=== PATIENT | female | born 1980 | race Caucasian/White ===

== ENCOUNTER 2016-07-04 12:59 | Emergency (ER) | payer MEDICARE, MEDICAID ==
[2016-07-04] MEDS ORDERED: PROMETHAZINE HCL 25 MG/ML AMPUL IM ONE (13:42)
[2016-07-04] MEDS ORDERED: PROMETHAZINE HCL 25 MG/ML AMPUL ONE (13:44)
--- NOTE | 2016-07-04 13:48 | ERNOTE ---
Abdominal HPI - Narrative Date of Service: 07/04/16 - General Chief Complaint: Abdominal Pain Time Seen by Provider: 07/04/16 13:36 Source: patient, family, RN notes reviewed Exam Limitations: no limitations - Immun/Allergies/Home Medications Immunizatons: IMMUNIZATION HX Immunizations Up to Date Yes History of Influenza Vaccine No Hx Pneumococcal Vaccination No Allergies/Adverse Reactions: Allergies glatiramer acetate [From Copaxone] Allergy (Verified 07/04/16 13:09) latex Allergy (Verified 07/04/16 13:09) hives bupropion HCl [From Wellbutrin] Adverse Reaction (Mild, Verified 07/04/16 13:09) tremors Home Medications: HOME MEDICATIONS ARIPiprazole [Abilify] 5 mg PO DAILY 05/12/16 [Last Taken Unknown] Cholecalciferol (Vitamin D3) [Vitamin D3] 2,000 unit PO DAILY 05/12/16 [Last Taken Unknown] Dimethyl Fumarate [Tecfidera] 240 mg PO BID 05/12/16 [Last Taken Unknown] L.acidoph & Paracasei,B.lactis [Probiotic] 1 each PO DAILY 05/12/16 [Last Taken Unknown] Multivitamin [One Daily Essential] 1 each PO DAILY 05/12/16 [Last Taken Unknown] Polyethylene Glycol 3350 [Miralax] 17 gm PO BID 05/12/16 [Last Taken Unknown] Propranolol HCl [Inderal] 10 mg PO QID 05/12/16 [Last Taken Unknown] Pyridoxine HCl [Vitamin B-6] 100 mg PO DAILY 05/12/16 [Last Taken Unknown] Sennosides/Docusate Sodium [Senna-Docusate Sodium Tablet] 1 each PO TID [Last Taken Unknown] Venlafaxine HCl [Effexor Xr] 150 mg PO DAILY 05/12/16 [Last Taken Unknown] Vitamin B Complex 1 each PO DAILY 05/12/16 [Last Taken Unknown] Armodafinil [Nuvigil] 200 mg PO BID 05/20/16 [Last Taken Unknown] Vitamin B Comp W-C [Vitabee W/C] 1 tab PO DAILY tablet 05/23/16 [Last Taken Unknown] Ondansetron [Zofran Odt] 8 mg PO Q8H PRN #12 tab 07/04/16 [Last Taken Unknown] - History of Present Illness Narrative: 35 y/o female to ED in wheelchair with significant other for abdominal pain. The patient has MS and reports that she cannot normally feel abdominal pain, but has pain today. She has also had some vomiting and diarrhea this morning. She denies any sick contacts. Date (Duration): 07/03/16 Review of Systems - Review of Systems Constitutional: Present: malaise. Absent: fever, chills EYE: Present: no symptoms reported ENT: Present: no symptoms reported Respiratory: Absent: shortness of breath, cough Cardiology: Absent: chest pain, syncope Gastrointestinal/Abdominal: Present: nausea, vomiting, diarrhea, abdominal pain , eating less, drinking less Genitourinary: Absent: frequency, dysuria, hematuria, decreased urinary output Musculoskeletal: Present: no symptoms reported Skin: Absent: rash, lesions Neurological: Absent: headache, dizziness/light-headedness Endocrine: Present: no symptoms reported Hematologic/Lymphatic: Present: no symptoms reported Psych: Present: anxiety - Patient's Past Medical History Patient History - Medical: Anxiety, Depression, UTI'S Patient History - Cardiac/Respiratory: Asthma Patient History - Cancer: No Hx of Cancer Patient History - Surgical Procedures: Appendectomy - Family History Mother Family History - Medical: Rheumatoid Arthritis Family History - Cardiac/Respiratory: CVA/Stroke, Hypertension Father Family History - Cardiac/Respiratory: Hypertension - Social History Living Situations: home Smoking Status: Current every day smoker Have you smoked in the past 12 months: Yes Do you dip or chew tobacco: No Alcohol Use: none Drug Use: none Physical Exam - Physical Exam General Appearance: Present: wd/wn, alert, no apparent distress, anxious Eye Exam: Normal inspection: bilateral Neck: Present: normal inspection, nontender Respiratory: Present: no respiratory distress, normal breath sounds, no accessory muscle use, lungs clear Cardiovascular/Chest: Present: regular rate, rhythm, no murmur, normal peripheral pulses Gastrointestinal/Abdominal: Present: normal bowel sounds, nondistended, soft, no organomegaly, tenderness - mild on left. Absent: rebound, mass, hernia Extremity Exam: Present: normal inspection, no edema Neurological Exam: Present: alert, oriented, normal mood/affect Skin Exam: Present: normal color, warm/dry ED Progress - Results and Orders Patient's Lab Results:: I have reviewed the patient's lab results. - Vital Signs Patient's Vital Signs:: I have reviewed the patient's vital signs. Vital Signs: Vital Signs 07/04/16 07/04/16 13:06 13:27 Temperature 37 C Pulse Rate 84 81 Respiratory 14 Rate Blood Pressure 116/68 112/66 O2 Sat by Pulse 100 93 Oximetry - X-Ray X-Ray #1 X-Ray: abdomen Interpretation: Reviewed by me X-ray Comments: FINDINGS: Abdomen Flat W/ Upright *: No subdiaphragmatic free air. No abnormal dilation of large or small bowel. Patient has multiple left-sided renal calcifications, largest measuring 6 mm at the level of the interpolar region of the left renal shadow. Multiple small rounded calcifications in the pelvis most likely phleboliths. Osseous structures are intact. Degenerative changes of the mid to lower lumbar spine noted. IMPRESSION: 1. Nonobstructive bowel gas pattern. 2. Multiple left-sided renal calcifications as above. 3. Additional comments as above. Electronically signed by Lali Saavedra M.D.. - Progress/Reassessment Chief Complaint: Abdominal Pain Progress:: Improved Progress Note-Subjective: IM phenergan given for nausea, patient verbalizes feeling a lot better. Discussed symptomatic home treatment and indications for needing f/u. Departure - Departure Clinical Impression: Viral gastroenteritis Disposition: Home self-care Condition: Good Instructions: Viral Gastroenteritis, Adult, [id number] Referrals: Maverick Peoples DO [Primary Care Provider] - Prescriptions: Ondansetron [Zofran Odt] 8 mg PO Q8H PRN #12 tab PRN Reason: Nausea
[2016-07-04 13:49] LABS: Hematocrit 41.7 % (37.0-47.0); Hemoglobin 13.9 gm/dL (12.5-16.0); Mean Cell Volume 94.1 fl (78-100); Mean Corpuscular Hemoglobin 31.4 pg (27-31); Mean Corpuscular Hgb Conc 33.3 g/dl (32-36); Neutrophil # 5.6 K/mm3 (1.3-6.0); Neutrophil % 65.9 % (42-75.0); Platelet Count 314 K/mm3 (150-450); Red Blood Count 4.43 M/mm3 (4.2-5.4); White Blood Count 8.4 K/mm3 (4.0-10.5)
[2016-07-04 14:05] LABS: Albumin * 3.8 gm/dl (3.4-5.0); Anion Gap 12.1 mmol/L (6.8-13.8); BUN/Creatinine Ratio 13.5 (9.0-21.6); Bilirubin, Total 0.3 mg/dL (0.0-1.1); Ca. Corrected For Albumin 9.6 mg/dL (8.4-10.2); Calcium * 9.8 mg/dL (7.9-10.9); Carbon Dioxide 26.8 mmol/L (24-32.6); Potassium 3.9 mmol/L (3.4-4.6); Total Protein 7.3 gm/dL (6.2-8.2)
[2016-07-04 15:06] VITALS: BP 121/78
== END 2016-07-04 14:56 | disposition home or self-care (01) ==
LOC: ER 12:59
DX: F17.210 Nicotine dependence, cigarettes, uncomplicated (principal); A08.4 Viral intestinal infection, unspecified; Z87.440 Personal history of urinary (tract) infections; F41.9 Anxiety disorder, unspecified; F32.9 Major depressive disorder, single episode, unspecified

== ENCOUNTER 2016-07-17 01:33 | Emergency (ER) | payer MEDICARE, MEDICAID ==
[2016-07-17] MEDS ORDERED: ACETAMINOPHEN 160 MG/5 ML BTL PO ONE (01:52)
[2016-07-17 01:54] LABS: Hematocrit 40.2 % (37.0-47.0); Hemoglobin 13.7 gm/dL (12.5-16.0); Mean Cell Volume 93.5 fl (78-100); Mean Corpuscular Hemoglobin 31.9 pg (27-31); Mean Corpuscular Hgb Conc 34.1 g/dl (32-36); Neutrophil % 74.7 % (42-75.0); Platelet Count 219 K/mm3 (150-450); Red Cell Distribution Width 13.2 % (11.5-14.0); White Blood Count 6.6 K/mm3 (4.0-10.5)
[2016-07-17 02:01] LABS: Urine Bilirubin Negative (NEGATIVE); Urine Blood Negative /ul (NEGATIVE); Urine Ketone Negative (NEGATIVE); Urine Protein Negative (NEGATIVE); Urine Urobilinogen Normal (NORMAL)
[2016-07-17] MEDS ORDERED: METHYLPREDNISOLONE SOD SUCC/PF 40 MG/ML VIAL IV ONE (02:05)
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
[2016-07-17 02:10] LABS: Albumin * 3.7 gm/dl (3.4-5.0); Anion Gap 13.5 mmol/L (6.8-13.8); BUN/Creatinine Ratio 4.8 (9.0-21.6); Bilirubin, Total 0.3 mg/dL (0.0-1.1); Ca. Corrected For Albumin 9.5 mg/dL (8.4-10.2); Calcium * 9.6 mg/dL (7.9-10.9); Carbon Dioxide 25.1 mmol/L (24-32.6); Potassium 3.6 mmol/L (3.4-4.6); Total Protein 7.4 gm/dL (6.2-8.2)
[2016-07-17 02:13] LABS: Urine Appearance Clear; Urine Bacteria 4+; Urine Color Pale Yellow; Urine Nitrite Positive (NEGATIVE); Urine RBC 0-5 /hpf (0-5); Urine Squamous Epithelial Cell Many - 3+ /hpf; Urine WBC 0-5 /hpf (0-5)
[2016-07-17] MEDS ORDERED: METHYLPREDNISOLONE SOD SUCC 500 MG in NORMAL SALINE 50 ML IV ONE (03:00)
[2016-07-17] MEDS ORDERED: LEVOFLOXACIN/D5W 500 MG/100 ML BAG IV SCH (03:15)
[2016-07-17] MEDS ORDERED: LEVOFLOXACIN/D5W 750 MG/150 ML BAG IV SCH (03:15)
[2016-07-17 03:24] VITALS: BP 113/68
== END 2016-07-17 03:20 | disposition short-term general hospital (02) ==
LOC: ER 01:33
DX: G35 Multiple sclerosis (principal); Z87.440 Personal history of urinary (tract) infections; F17.210 Nicotine dependence, cigarettes, uncomplicated; R53.83 Other fatigue

== ENCOUNTER 2016-07-22 17:51 | Emergency (ER) | payer MEDICARE, MEDICAID ==
[2016-07-22] MEDS ORDERED: ALBUTEROL SULFATE/IPRATROPIUM 3 ML NEBU IH ONE (19:06)
--- OUTSIDE RECORDS SUMMARY | 2016-07-22 19:08 | XMS REPORT | Summary of Care ---
:1980 Author Organization [facility] Problem List Condition Effective Dates Status Health Status Informant Anxiety(Confirmed) Active patient Asthma(Confirmed) Active patient Depression(Confirmed) Active patient Multiple sclerosis(Confirmed) Active patient Encounter 10/20/14 - 10/22/14 [place] [address]- [facility] Discharge Disposition: Discharged to Home or Self Care Attending Physician: Baljinder Dejesus MD Admitting Physician: Kat MASCORRO, Krystal Cam Vital Signs Most recent to oldest (Reference Range): 1 Respiratory Rate (12-18 Br PM) 16 Br PM (10/22/14 7:22 AM) Most recent to oldest (Reference Range): 1 Pulse Rate (60-100 BPM) 76 BPM (10/22/14 7:22 AM) Most recent to oldest (Reference Range): 1 Blood Pressure (90-140/65-90 mmHg) 95/46mmHg (10/22/14 7:22 AM) Most recent to oldest (Reference Range): 1 Temperature Celsius (36.1-38 Degrees C) 36.6 Degrees C (10/22/14 7:22 AM) Most recent to oldest (Reference Range): 1 Height 160.02 cm (10/20/14 11:56 PM) Most recent to oldest (Reference Range): 1 Weight 89.9 kg (10/20/14 11:56 PM) Most recent to oldest (Reference Range): 1 Body Mass Index 35 kg/m2 (10/20/14 11:56 PM) Allergies, Adverse Reactions, Alerts Substance Reaction Severity Status Copaxone rash Active gabapentin Active Grass Active Latex Active Trees Active Medications bifidobacterium-lactobacillus (Nature's Bounty Probiotic oral tablet) 1 Tab, By Mouth, once a day, Refills: 0 cholecalciferol (Vitamin D3 2000 intl units oral capsule) 1 Cap, By Mouth, once a day, Refills: 0 desvenlafaxine (Pristiq) 100 mg, By Mouth, Twice a day, Refills: 0 dimethyl fumarate (Tecfidera) 240 mg, By Mouth, Twice a day, Refills: 0 LORazepam (LORazepam 1 mg oral tablet) 1 Tab, By Mouth, every 4 hours, As Needed, See Comments, Refills: 0 modafinil (modafinil 200 mg oral tablet) , 2 tabs, By Mouth, every morning, Refills: 0 multivitamin (B-50 Complex Vitamin B Complex oral tablet) 1 Tab, By Mouth, once a day, Refills: 0 multivitamin (Multivitamin Tab) 1 Tab, By Mouth, once a day, Refills: 0 omega-3 polyunsaturated fatty acids (Nature's Bounty Red Krill Oil 500 mg oral capsule) 2 Cap, By Mouth, once a day, Refills: 0 polyethylene glycol 3350 (MiraLax) 17 Gm, By Mouth, Twice a day, Refills: 0 pyridoxine (Vitamin B6 100 mg oral tablet) 1 Tab, By Mouth, once a day, Refills: 0 tolterodine (Detrol LA) 4 mg, By Mouth, once a day, Refills: 0 ubiquinone (elppa CoQ10) 400 mg, By Mouth, once a day, Refills: 0 ziprasidone (ziprasidone 20 mg oral capsule) 1 Cap, By Mouth, Twice a day, Refills: 0 Results Urine Chem/Hemo Most recent to oldest (Reference Range): 1 HCG Qualitative Urine (Negative) Negative (10/21/14 1:45 PM) Immunizations No data available for this section Procedures Procedure Date Related Diagnosis Body Site Appendectomy Social History No data available for this section Assessment and Plan No data available for this section
--- OUTSIDE RECORDS SUMMARY | 2016-07-22 19:08 | XMS REPORT | Continuity of Care Document ---
:1980 Author Organization [facility] [place] [address] Care Team Providers Name Role Phone Blanche Elliott Primary Care Provider [phone] Source Comments This disclosure is being made pursuant to the [employer] program and maynot contain all information available regarding this patient.[facility] Active Allergies and Adverse Reactions Allergen Noted Date Severity Reactions Comments Chocolate 02/14/2012 Medium Nausea And Vomiting Reviewed by Brittany Sotelo 02/14/2012 Glatiramer Acetate 11/16/2011 Low Dermatitis Latex 11/16/2011 Low Dermatitis Current Medications Be aware that medications may not be up to date as of this document. Alwaysverify current medications with the patient. Prescription Sig. Disp. Refills Start Date End Date Status Desvenlafaxine Take 100 mg by Active Succinate (PRISTIQ PO) mouth daily. Indications: Depression Darifenacin Take 15 mg by Active Hydrobromide (ENABLEX mouth daily. PO) clindamycin (CLEOCIN) Take 300 mg by Active 300 MG capsule mouth 2 (two) times daily. nitrofurantoin Take 100 mg by Active (MACRODANTIN) 100 MG mouth daily. capsule doxycycline Take 100 mg by Active (VIBRAMYCIN) 100 MG mouth 2 (two) capsule times daily. clindamycin (CLEOCIN Apply 1 % Active T) 1 % lotion topically daily. triamcinolone Apply 0.1 % Active (KENALOG) 0.1 % cream topically 3 (three) times daily. vitamin D, Take 3,000 Units Active cholecalciferol, by mouth daily. (VITAMIN D3) 1000 UNITS tablet ARIPiprazole (ABILIFY) Take 1 tablet by 30 tablet 0 02/16/2012 Active 2 MG tablet mouth nightly. modafinil (PROVIGIL) Take 1 tablet by 1 tablet 0 02/16/2012 Active 200 MG tablet mouth daily. Active Problems Not on file Social History Tobacco Use Types Packs/Day Years Used Date Current Every Day Smoker 0.25 Tobacco Cessation:Ready to Quit: No; Counseling Given: Yes Comments: Alcohol Use Drinks/Week oz/Week Comments No Last Filed Vital Signs Vital Sign Reading Time Taken Blood Pressure 104/73 02/16/2012 8:01 AM CDT Pulse 98 02/16/2012 8:01 AM CDT Temperature 36.3 C (97.3 F) 02/16/2012 8:00 AM CDT Respiratory Rate 12 02/16/2012 8:00 AM CDT Height 1.645 m (5' 4.76") 02/14/2012 1:50 AM CDT Weight 85.1 kg (187 lb 9.8 oz) 02/14/2012 1:50 AM CDT Body Mass Index 31.45 02/14/2012 1:50 AM CDT Oxygen Saturation - - Plan of Care Health Maintenance Due Date Last Done Comments Tetanus/Pertussis (1 - Tdap) 1997 Pap Smear 11/04/1999 Retired-INFLUENZA VACCINE 02/10/2016 Results from Last 3 Months Not on file
[2016-07-22] MEDS ORDERED: ALBUTEROL SULFATE 2.5 MG/0.5 ML VIAL.NEB IH ONE (19:09)
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
[2016-07-22 19:53] LABS: Hematocrit 40.8 % (37.0-47.0); Hemoglobin 13.8 gm/dL (12.5-16.0); Mean Cell Volume 92.7 fl (78-100); Mean Corpuscular Hemoglobin 31.4 pg (27-31); Mean Corpuscular Hgb Conc 33.8 g/dl (32-36); Mean Platelet Volume 11.1 fl (6.0-9.5); Neutrophil # 5.4 K/mm3 (1.3-6.0); Neutrophil % 59.6 % (42-75.0); Platelet Count 251 K/mm3 (150-450); Red Cell Distribution Width 12.8 % (11.5-14.0)
[2016-07-22 20:06] LABS: Anion Gap 13.2 mmol/L (6.8-13.8); BUN/Creatinine Ratio 11.7 (9.0-21.6); Bilirubin, Total 0.2 mg/dL (0.0-1.1); Ca. Corrected For Albumin 10.3 mg/dL (8.4-10.2); Calcium * 10.6 mg/dL (7.9-10.9); Carbon Dioxide 26.7 mmol/L (24-32.6); Potassium 3.9 mmol/L (3.4-4.6); Total Protein 7.8 gm/dL (6.2-8.2)
[2016-07-22 21:15] VITALS: BP 130/82
== END 2016-07-22 21:05 | disposition home or self-care (01) ==
LOC: ER 17:51
DX: R05 Cough (principal); J45.909 Unspecified asthma, uncomplicated; F41.9 Anxiety disorder, unspecified; Z87.891 Personal history of nicotine dependence; Z87.440 Personal history of urinary (tract) infections

== ENCOUNTER 2016-09-04 20:01 | Emergency (ER) | payer MEDICARE, MEDICAID ==
[2016-09-04 20:19] VITALS: BP 117/73
[2016-09-04] MEDS ORDERED: TETRACAINE HCL 150 DROP BTL ONE (20:36)
--- OUTSIDE RECORDS SUMMARY | 2016-09-04 20:38 | XMS REPORT | Continuity of Care Document ---
:1980 Author Organization [facility] [place] [address] Care Team Providers Name Role Phone Blanche Elliott Primary Care Provider [phone] Source Comments This disclosure is being made pursuant to the [employer] program and maynot contain all information available regarding this patient.[facility] Active Allergies and Adverse Reactions Allergen Noted [...]
--- OUTSIDE RECORDS SUMMARY | 2016-09-04 20:39 | XMS REPORT | Continuity of Care Document ---
:1980 Author Organization [facility] ([facility]) Address [address] [place] [address] Phone [phone] Care Team Providers Name Role Phone Maverick Peoples Brandt Primary Care Provider [phone] Source Comments This disclosure is being made pursuant to the Care Everywhere program, applicable federal and state laws, and may not contain all informaitonavailable regarding this patient.[facility] ([facility]) Active Allergies and Adverse Reactions Allergen Noted Date Severity Reactions Comments Bupropion 07/17/2016 OTHER tremor Glatiramer (Copolymer 1) 07/17/2016 Urticaria (Hives) Latex 01/28/2013 Rash Current Medications Prescription Sig. Disp. Refills Start Date End Date Status dimethyl fumarate Take 240 mg by Active (TECFIDERA) 240 mg XR mouth 2 times capsule daily. pyridoxine (VITAMIN B-6) Take 100 mg by Active 50 mg tablet mouth daily. vitamin B complex tablet Take 1 Tab by Active mouth daily. sennosides 8.6 mg tablet Take 2 tablets Active by mouth in the morning and 1 tablet in the evening aripiprazole 5 mg tablet Take 5 mg by Active mouth daily. varenicline (CHANTIX) Take 1 tablet 56 tablet 2 07/06/2016 Active 0.5 mg tablet (0.5 mg total) by mouth 2 times daily. armodafinil (NUVIGIL) Take 250 mg by Active 250 mg tablet mouth daily. cholecalciferol (VITAMIN Take 2,000 Units Active D3) 2,000 unit tablet by mouth daily. multivitamin tablet Take 1 tablet by Active mouth daily. propranolol 10 mg tablet Take 10 mg by Active mouth 2 times daily. venlafaxine 150 mg XR Take 150 mg by Active capsule mouth daily. lactobacillus rhamnosus Take 1 capsule Active (gg) (SAAD) 15 by mouth daily. billion cell capsule loratadine 10 mg tablet Take 1 tablet 30 tablet 11 08/04/2016 Active (10 mg total) by mouth daily. LORazepam 0.5 mg tablet Take 1 tablet 30 tablet 1 08/04/2016 Active (0.5 mg total) by mouth at bedtime as needed. Active Problems Problem Noted Date Weakness 07/17/2016 Multiple sclerosis, relapsing-remitting 07/17/2016 Exacerbation of multiple sclerosis 07/17/2016 Pain in joint, pelvic region and thigh 12/25/2014 Breast asymmetry 12/25/2014 Well woman exam with routine gynecological exam 04/10/2013 Contraception management 02/04/2013 Low back pain 09/11/2012 Fever and chills 09/11/2012 Chronic UTI 09/11/2012 Multiple sclerosis 09/11/2012 Most Recent Encounters Date Type Specialty Providers Description 08/04/2016 Office Visit Maverick Smith Dx: Non-seasonal Primary A, DO allergic rhinitis due to animal hair and dander (Primary Dx) 07/17/2016 - Hospital Encounter General Care Fercho Ferro MD 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, T, 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, (Primary Dx) Kal Santiago MD 07/06/2016 Office Visit Maverick Smith Dx: Nicotine abuse Primary A, DO (Primary Dx) Social History Tobacco Use Types Packs/Day Years Used Date Current Every Day Smoker 0.25 Smokeless Tobacco: Never Used Tobacco Cessation:Ready to Quit: Yes; Counseling Given: No Comments: Alcohol Use Drinks/Week oz/Week Comments No Last Filed Vital Signs Vital Sign Reading Time Taken Blood Pressure 98/56 08/04/2016 8:21 AM REVENUE COORDINATOR Pulse 72 08/04/2016 8:21 AM REVENUE COORDINATOR Temperature 36.2 C (97.2 F) 08/04/2016 8:21 AM REVENUE COORDINATOR Respiratory Rate 18 08/04/2016 8:21 AM REVENUE COORDINATOR Height 1.6 m (5' 3") 07/17/2016 2:16 PM REVENUE COORDINATOR Weight 97.523 kg (215 lb) 07/17/2016 2:16 PM REVENUE COORDINATOR Body Mass Index 38.09 07/17/2016 2:16 PM REVENUE COORDINATOR Oxygen Saturation 99% 07/19/2016 7:44 AM REVENUE COORDINATOR Plan of Care Date Type Specialty Providers Description 2016 Appointment [place] - Primary Maverick Peoples, Chief Comp: Patient DO Reported Reason For [address] Visit [place] [id number] [phone] Health Maintenance Due Date Last Done Comments Hepatitis B Vaccine (1 of 3 - Primary 1978 Series) Tdap Vaccine 1989 MMR Vaccine 1996 Td Vaccine 1996 Pneumococcal Vaccine (1 of 1 - PPSV23) 1997 Influenza Vaccine: Seasonal (#1) 01/10/2016 Cervical Cancer Screening 12/21/2017 12/21/2014, 04/10/2013 Lipid Disorder Screening 06/19/2018 06/19/2013 Results from Last 3 Months EPIDEMIOLOGY CULTURE-VREF (07/19/2016 12:59 PM) Component Value Range VRE Culture Growth No Vancomycin Resistant Enterococcus isolated Specimen Culture - Rectal Swab MRSA/SA PCR (07/19/2016 12:57 PM) Component Value Range MRSA by PCR Negative Negative S. AUREUS by PCR NegativeComment:Negative for SA Negative Specimen Nasal Swab (MRSA) - Nasal Swab Narrative Test methodology:PCR amplification; Xpert SA Test (Quantum4D) CHEST - AP/PA (07/18/2016 10:47 AM) Impressions Findings / Impression: The cardiomediastinal silhouette and pulmonary vasculature are normal. The lungs are normally aerated without significant atelectasis or consolidation. There is no pleural effusion or pneumothorax. Narrative Procedure: CHEST - AP/PA Technique: Portable AP chest radiograph Comparison: None Clinical Indication: Rule out pneumonia Procedure Note [place], Incoming Imaging Results - SunJul 18, 2016 12:21 PM REVENUE COORDINATOR Procedure: CHEST - AP/PA Technique: Portable AP chest radiograph Comparison: None Clinical Indication: Rule out pneumonia IMPRESSION Findings / Impression: The cardiomediastinal silhouette and pulmonary vasculature are normal. The lungs are normally aerated without significant atelectasis or consolidation. There is no pleural effusion or pneumothorax. CBC (COMPLETE BLOOD COUNT) (07/18/2016 7:08 AM) Component Value Range WBC Count 7.5 3.7-10.5 K/MM3 RBC Count 4.37 4.00-5.20 M/MM3 Hemoglobin 13.7 11.9-15.5 g/dL Hematocrit 40 35-47 % MCV (Mean Corpuscular Volume) 90 82-99 FL MCH (Mean Corpuscular Hemoglobin) 31 25-35 PG MCHC (Mean Corpuscular Hemoglobin Concentration) 35 32-36 % Platelet Count 224 150-400 K/MM3 MPV (Mean Platelet Volume) 12.0 9.4-12.3 FL RBC Dist Width-STD 44.1 36.4-46.3 FL RBC Distrib Width 13.3 9.0-14.5 % Nucleated RBC 0 /100 WBC Specimen Whole Blood CREATININE (07/18/2016 7:08 AM) Component Value Range Creatinine 0.7Comment: 0.5-1.0 mg/dL Creatinine switched to enzymatic method on 10/18/2010.GFR equation switched to IDMS-traceable MDRD equation on 10/18/2010. Calculated GFR values are not valid in clinical settings where serum creatinine is changing. Calculated GFR >90 >60 mL/min/1.73 m2 Specimen Blood HEMOGLOBIN A1C (07/18/2016 7:08 AM) Component Value Range Hemoglobin A1c 4.8Comment: 4.8-6.0 % Glycemic Control Guidelines: Non-diabetic <6% Goal <7% Therapeutic Action >8% Estimated Average Glucose 91Comment: mg/dL The estimated average glucose (eAG) calculated from the HbA1c changed on 28/01.See Laboratory Bulletins in the Department of Pathology Laboratory Services Handbook for a full discussion.Not e that the new calculated glucose will now be lower.The A1c result is unchanged. Specimen Whole Blood BLOOD CULTURE (07/17/2016 6:10 PM)Only the most recent of2 resultswithin the time period is included. Component Value Range Blood Culture No Growth Specimen Blood - Blood, Venipuncture INFLUENZA A/B PANEL PCR (07/17/2016 5:35 PM) Component Value Range Influenza A Detected(A)Comment: Not Detected If patient is positive for Influenza A droplet precautions may be required if appropriate. Influenza B Not Detected Not detected H1N1 Influenza Not Detected Not Detected Specimen Other - Nasopharyngeal swab Narrative Test Methodology:PCR amplification The performance characteristics of this test were determined by the [facility].It has not been cleared or approved by the U.S. Food and DrugAdministration (FDA). The FDA has determined that such clearance or approval is not necessary.This test is for clinical purposes.It should not be regarded as investigational or for research. The laboratory is certified under the Clinical Laboratory Improvement Amendments of 1988 (CLIA) as qualified to perform high complexity clinical laboratory testing. VITAMIN B12, REFLEX (07/17/2016 11:46 AM) Component Value Range Vitamin B12, Reflex [id number]: 211-946 pg/mL New analytical immunoassay with different reference range instituted 05/06/2013 AT 830AM Normal 211 - 946 pg/mL [id number] - 210 pg/mL Deficient<150pg/mL Specimen Blood MRI SPINE THORACIC W/WO CONTRAST ([id number]) (07/17/2016 10:14 AM) Impressions Impression: 1. Extensive white disease in a periventricular configuration, consistent with multiple sclerosis. There is diffuse parenchymal atrophy. No enhancement or restricted diffusion to suggest active disease. 2. White matter disease is also evident throughout the spinal cord, with associated atrophy on the left at C4. No active lesions are identified. Results of the procedure were given to: PERSON CONTACTED:Dr. Fonseca DATE: 07/17/2016 TIME CALLED:[id number] PHONE/PAGER:[id number] Narrative Procedure: MRI BRAIN W/WO CONTRAST ([id number]), MRI SPINE THORACIC W/WO CONTRAST ([id number]), MRI SPINE CERVICAL W/WO CONTRAST ([id number]) Indication: Weakness, rule out MS flare. Technique: 1. Multisequence, multiplanar MRI of the brain before and after the uneventful administration of 9.7 mL Gadavist IV contrast using the multiple sclerosis protocol. 2. Multisequence, multiplanar MRI of the cervical spine before and after the uneventful administration of 9.7 mL GadavistIV contrast using a demyelination protocol. 3. Multisequence, multiplanar MRI of the thoracic spine before and after the uneventful administration of 9.7 mL GadavistIV contrast using a demyelination protocol. Comparison: None Limitations: Motion artifact. Findings: -Brain: There are extensive high T2/FLAIR signal changes throughout the subcortical and periventricular white matter. Many of these have the classic Smith fingerlike appearance. Multiple areas demonstrate low T1 signal (black holes) as well. Abnormal signal is identified in the white matter tracts within the midbrain and brainstem as well. There is abnormal atrophy of brain parenchyma, demonstrated by prominent sulci and basilar subarachnoid spaces. The ventricles are symmetric. There is no restricted diffusion or enhancement at the abnormal FLAIR signal to suggest active disease. There is no acute infarct, intracranial mass, or intra or extra-axial hemorrhage. The pituitary and suprasellar region are unremarkable. The major intracranial flow-voids are preserved. Normal orbits. The paranasal sinuses and mastoid air cells are clear. Normal bone marrow signal. -Cervical Spine: There is grossly anatomic alignment. Vertebral body heights are well-maintained. There is abnormal cord signal throughout the cervical spine, most prominent in the upper cervical spine. There is some atrophy of the left cord, most prominent at the C4 level. There is no pathologic enhancement. Normal marrow signal. Prevertebral soft tissues are unremarkable. -Thoracic Spine: There is normal alignment. Vertebral body heights are well-maintained. There is question of abnormal cord signal throughout the thoracic spine, most prominent in the upper thoracic spine. There is no pathologic enhancement. Normal marrow signal. Paravertebral soft tissues are unremarkable. Procedure Note [place], Incoming Imaging Results - SunJul 17, 2016 2:26 PM REVENUE COORDINATOR Procedure: MRI BRAIN W/WO CONTRAST ([id number]), MRI SPINE THORACIC W/WO CONTRAST ([id number]), MRI SPINE CERVICAL W/WO CONTRAST ([id number]) Indication: Weakness, rule out MS flare. Technique: 1. Multisequence, multiplanar MRI of the brain before and after the uneventful administration of 9.7 mL Gadavist IV contrast using the multiple sclerosis protocol. 2. Multisequence, multiplanar MRI of the cervical spine before and after the uneventful administration of 9.7 mL Gadavist IV contrast using a demyelination protocol. 3. Multisequence, multiplanar MRI of the thoracic spine before and after the uneventful administration of 9.7 mL Gadavist IV contrast using a demyelination protocol. Comparison: None Limitations: Motion artifact. Findings: -Brain: There are extensive high T2/FLAIR signal changes throughout the subcortical and periventricular white matter. Many of these have the classic Smith fingerlike appearance. Multiple areas demonstrate low T1 signal (black holes) as well. Abnormal signal is identified in the white matter tracts within the midbrain and brainstem as well. There is abnormal atrophy of brain parenchyma, demonstrated by prominent sulci and basilar subarachnoid spaces. The ventricles are symmetric. There is no restricted diffusion or enhancement at the abnormal FLAIR signal to suggest active disease. There is no acute infarct, intracranial mass, or intra or extra-axial hemorrhage. The pituitary and suprasellar region are unremarkable. The major intracranial flow-voids are preserved. Normal orbits. The paranasal sinuses and mastoid air cells are clear. Normal bone marrow signal. -Cervical Spine: There is grossly anatomic alignment. Vertebral body heights are well-maintained. There is abnormal cord signal throughout the cervical spine, most prominent in the upper cervical spine. There is some atrophy of the left cord, most prominent at the C4 level. There is no pathologic enhancement. Normal marrow signal. Prevertebral soft tissues are unremarkable. -Thoracic Spine: There is normal alignment. Vertebral body heights are well-maintained. There is question of abnormal cord signal throughout the thoracic spine, most prominent in the upper thoracic spine. There is no pathologic enhancement. Normal marrow signal. Paravertebral soft tissues are unremarkable. IMPRESSION Impression: 1. Extensive white disease in a periventricular configuration, consistent with multiple sclerosis. There is diffuse parenchymal atrophy. No enhancement or restricted diffusion to suggest active disease. 2. White matter disease is also evident throughout the spinal cord, with associated atrophy on the left at C4. No active lesions are identified. Results of the procedure were given to: PERSON CONTACTED: Dr. Fonseca DATE: 07/17/2016 TIME CALLED: [phone] PHONE/PAGER: [id number] MRI SPINE CERVICAL W/WO CONTRAST ([id number]) (07/17/2016 10:14 AM) Impressions Impression: 1. Extensive white disease in a periventricular configuration, consistent with multiple sclerosis. There is diffuse parenchymal atrophy. No enhancement or restricted diffusion to suggest active disease. 2. White matter disease is also evident throughout the spinal cord, with associated atrophy on the left at C4. No active lesions are identified. Results of the procedure were given to: PERSON CONTACTED:Dr. Fonseca DATE: 07/17/2016 TIME CALLED:[phone] PHONE/PAGER:[id number] Narrative Procedure: MRI BRAIN W/WO CONTRAST ([id number]), MRI SPINE THORACIC W/WO CONTRAST ([id number]), MRI SPINE CERVICAL W/WO CONTRAST ([id number]) Indication: Weakness, rule out MS flare. Technique: 1. Multisequence, multiplanar MRI of the brain before and after the uneventful administration of 9.7 mL Gadavist IV contrast using the multiple sclerosis protocol. 2. Multisequence, multiplanar MRI of the cervical spine before and after the uneventful administration of 9.7 mL GadavistIV contrast using a demyelination protocol. 3. Multisequence, multiplanar MRI of the thoracic spine before and after the uneventful administration of 9.7 mL GadavistIV contrast using a demyelination protocol. Comparison: None Limitations: Motion artifact. Findings: -Brain: There are extensive high T2/FLAIR signal changes throughout the subcortical and periventricular white matter. Many of these have the classic Smith fingerlike appearance. Multiple areas demonstrate low T1 signal (black holes) as well. Abnormal signal is identified in the white matter tracts within the midbrain and brainstem as well. There is abnormal atrophy of brain parenchyma, demonstrated by prominent sulci and basilar subarachnoid spaces. The ventricles are symmetric. There is no restricted diffusion or enhancement at the abnormal FLAIR signal to suggest active disease. There is no acute infarct, intracranial mass, or intra or extra-axial hemorrhage. The pituitary and suprasellar region are unremarkable. The major intracranial flow-voids are preserved. Normal orbits. The paranasal sinuses and mastoid air cells are clear. Normal bone marrow signal. -Cervical Spine: There is grossly anatomic alignment. Vertebral body heights are well-maintained. There is abnormal cord signal throughout the cervical spine, most prominent in the upper cervical spine. There is some atrophy of the left cord, most prominent at the C4 level. There is no pathologic enhancement. Normal marrow signal. Prevertebral soft tissues are unremarkable. -Thoracic Spine: There is normal alignment. Vertebral body heights are well-maintained. There is question of abnormal cord signal throughout the thoracic spine, most prominent in the upper thoracic spine. There is no pathologic enhancement. Normal marrow signal. Paravertebral soft tissues are unremarkable. Procedure Note [place], Incoming Imaging Results - SunJul 17, 2016 2:26 PM REVENUE COORDINATOR Procedure: MRI BRAIN W/WO CONTRAST ([id number]), MRI SPINE THORACIC W/WO CONTRAST ([id number]), MRI SPINE CERVICAL W/WO CONTRAST ([id number]) Indication: Weakness, rule out MS flare. Technique: 1. Multisequence, multiplanar MRI of the brain before and after the uneventful administration of 9.7 mL Gadavist IV contrast using the multiple sclerosis protocol. 2. Multisequence, multiplanar MRI of the cervical spine before and after the uneventful administration of 9.7 mL Gadavist IV contrast using a demyelination protocol. 3. Multisequence, multiplanar MRI of the thoracic spine before and after the uneventful administration of 9.7 mL Gadavist IV contrast using a demyelination protocol. Comparison: None Limitations: Motion artifact. Findings: -Brain: There are extensive high T2/FLAIR signal changes throughout the subcortical and periventricular white matter. Many of these have the classic Smith fingerlike appearance. Multiple areas demonstrate low T1 signal (black holes) as well. Abnormal signal is identified in the white matter tracts within the midbrain and brainstem as well. There is abnormal atrophy of brain parenchyma, demonstrated by prominent sulci and basilar subarachnoid spaces. The ventricles are symmetric. There is no restricted diffusion or enhancement at the abnormal FLAIR signal to suggest active disease. There is no acute infarct, intracranial mass, or intra or extra-axial hemorrhage. The pituitary and suprasellar region are unremarkable. The major intracranial flow-voids are preserved. Normal orbits. The paranasal sinuses and mastoid air cells are clear. Normal bone marrow signal. -Cervical Spine: There is grossly anatomic alignment. Vertebral body heights are well-maintained. There is abnormal cord signal throughout the cervical spine, most prominent in the upper cervical spine. There is some atrophy of the left cord, most prominent at the C4 level. There is no pathologic enhancement. Normal marrow signal. Prevertebral soft tissues are unremarkable. -Thoracic Spine: There is normal alignment. Vertebral body heights are well-maintained. There is question of abnormal cord signal throughout the thoracic spine, most prominent in the upper thoracic spine. There is no pathologic enhancement. Normal marrow signal. Paravertebral soft tissues are unremarkable. IMPRESSION Impression: 1. Extensive white disease in a periventricular configuration, consistent with multiple sclerosis. There is diffuse parenchymal atrophy. No enhancement or restricted diffusion to suggest active disease. 2. White matter disease is also evident throughout the spinal cord, with associated atrophy on the left at C4. No active lesions are identified. Results of the procedure were given to: PERSON CONTACTED: Dr. Fonseca DATE: 07/17/2016 TIME CALLED: [phone] PHONE/PAGER: [id number] MRI BRAIN W/WO CONTRAST ([id number]) (07/17/2016 10:14 AM) Impressions Impression: 1. Extensive white disease in a periventricular configuration, consistent with multiple sclerosis. There is diffuse parenchymal atrophy. No enhancement or restricted diffusion to suggest active disease. 2. White matter disease is also evident throughout the spinal cord, with associated atrophy on the left at C4. No active lesions are identified. Results of the procedure were given to: PERSON CONTACTED:Dr. Fonseca DATE: 07/17/2016 TIME CALLED:[phone] PHONE/PAGER:[id number] Narrative Procedure: MRI BRAIN W/WO CONTRAST ([id number]), MRI SPINE THORACIC W/WO CONTRAST ([id number]), MRI SPINE CERVICAL W/WO CONTRAST ([id number]) Indication: Weakness, rule out MS flare. Technique: 1. Multisequence, multiplanar MRI of the brain before and after the uneventful administration of 9.7 mL Gadavist IV contrast using the multiple sclerosis protocol. 2. Multisequence, multiplanar MRI of the cervical spine before and after the uneventful administration of 9.7 mL GadavistIV contrast using a demyelination protocol. 3. Multisequence, multiplanar MRI of the thoracic spine before and after the uneventful administration of 9.7 mL GadavistIV contrast using a demyelination protocol. Comparison: None Limitations: Motion artifact. Findings: -Brain: There are extensive high T2/FLAIR signal changes throughout the subcortical and periventricular white matter. Many of these have the classic Smith fingerlike appearance. Multiple areas demonstrate low T1 signal (black holes) as well. Abnormal signal is identified in the white matter tracts within the midbrain and brainstem as well. There is abnormal atrophy of brain parenchyma, demonstrated by prominent sulci and basilar subarachnoid spaces. The ventricles are symmetric. There is no restricted diffusion or enhancement at the abnormal FLAIR signal to suggest active disease. There is no acute infarct, intracranial mass, or intra or extra-axial hemorrhage. The pituitary and suprasellar region are unremarkable. The major intracranial flow-voids are preserved. Normal orbits. The paranasal sinuses and mastoid air cells are clear. Normal bone marrow signal. -Cervical Spine: There is grossly anatomic alignment. Vertebral body heights are well-maintained. There is abnormal cord signal throughout the cervical spine, most prominent in the upper cervical spine. There is some atrophy of the left cord, most prominent at the C4 level. There is no pathologic enhancement. Normal marrow signal. Prevertebral soft tissues are unremarkable. -Thoracic Spine: There is normal alignment. Vertebral body heights are well-maintained. There is question of abnormal cord signal throughout the thoracic spine, most prominent in the upper thoracic spine. There is no pathologic enhancement. Normal marrow signal. Paravertebral soft tissues are unremarkable. Procedure Note [place], Incoming Imaging Results - SunJul 17, 2016 2:26 PM REVENUE COORDINATOR Procedure: MRI BRAIN W/WO CONTRAST ([id number]), MRI SPINE THORACIC W/WO CONTRAST ([id number]), MRI SPINE CERVICAL W/WO CONTRAST ([id number]) Indication: Weakness, rule out MS flare. Technique: 1. Multisequence, multiplanar MRI of the brain before and after the uneventful administration of 9.7 mL Gadavist IV contrast using the multiple sclerosis protocol. 2. Multisequence, multiplanar MRI of the cervical spine before and after the uneventful administration of 9.7 mL Gadavist IV contrast using a demyelination protocol. 3. Multisequence, multiplanar MRI of the thoracic spine before and after the uneventful administration of 9.7 mL Gadavist IV contrast using a demyelination protocol. Comparison: None Limitations: Motion artifact. Findings: -Brain: There are extensive high T2/FLAIR signal changes throughout the subcortical and periventricular white matter. Many of these have the classic Smith fingerlike appearance. Multiple areas demonstrate low T1 signal (black holes) as well. Abnormal signal is identified in the white matter tracts within the midbrain and brainstem as well. There is abnormal atrophy of brain parenchyma, demonstrated by prominent sulci and basilar subarachnoid spaces. The ventricles are symmetric. There is no restricted diffusion or enhancement at the abnormal FLAIR signal to suggest active disease. There is no acute infarct, intracranial mass, or intra or extra-axial hemorrhage. The pituitary and suprasellar region are unremarkable. The major intracranial flow-voids are preserved. Normal orbits. The paranasal sinuses and mastoid air cells are clear. Normal bone marrow signal. -Cervical Spine: There is grossly anatomic alignment. Vertebral body heights are well-maintained. There is abnormal cord signal throughout the cervical spine, most prominent in the upper cervical spine. There is some atrophy of the left cord, most prominent at the C4 level. There is no pathologic enhancement. Normal marrow signal. Prevertebral soft tissues are unremarkable. -Thoracic Spine: There is normal alignment. Vertebral body heights are well-maintained. There is question of abnormal cord signal throughout the thoracic spine, most prominent in the upper thoracic spine. There is no pathologic enhancement. Normal marrow signal. Paravertebral soft tissues are unremarkable. IMPRESSION Impression: 1. Extensive white disease in a periventricular configuration, consistent with multiple sclerosis. There is diffuse parenchymal atrophy. No enhancement or restricted diffusion to suggest active disease. 2. White matter disease is also evident throughout the spinal cord, with associated atrophy on the left at C4. No active lesions are identified. Results of the procedure were given to: PERSON CONTACTED: Dr. Fonseca DATE: 07/17/2016 TIME CALLED: [phone] PHONE/PAGER: [phone] FILM-STORE& INTER (07/17/2016 7:12 AM) Impressions Findings and impression: The portable exam is grossly within normal limits. No prior comparison available. Narrative Outside film interpretation requested. Chest radiograph AP portable single view obtained on 07/17/2016 at [facility] at 0227 hours. Indication: Shortness of breath and cough. Procedure Note Wilbur, Incoming Imaging Results - SunJul 17, 2016 10:49 AM REVENUE COORDINATOR Outside film interpretation requested. Chest radiograph AP portable single view obtained on 07/17/2016 at [facility] at 0227 hours. Indication: Shortness of breath and cough. IMPRESSION Findings and impression: The portable exam is grossly within normal limits. No prior comparison available. MICROSCOPIC URINALYSIS (07/17/2016 5:52 AM) Component Value Range White Blood Cells, Urine 5 0-5 /HPF Red Blood Cells, Urine <1 0-2 /HPF Bacteria, Urine Moderate(A) /HPF Specimen Urine URINALYSIS WITH REFLEX CULTURE (07/17/2016 5:52 AM) Component Value Range Color, Urine Straw Straw, Pale Yellow, Yellow, Clear, None Clarity, Urine Clear Clear pH, Urine 6.0 <9.0 Spec [place], Urine <1.005 1.000-1.030 Glucose, Urine Negative Negative Blood, Urine Negative Negative Ketones, Urine Negative Negative Protein, Urine Negative Negative Urobilinogen, Urine Normal Normal Bilirubin, Urine Negative Negative Leukocyte Esterase, Urine Trace(A) Negative Nitrite, Urine Negative Negative Specimen Urine URINALYSIS WITH REFLEXED CULTURE AND MICROSCOPIC EXAM (07/17/2016 5:52 AM) Specimen Culture - Urine, Midstream clean catch Narrative The following orders were created for panel order URINALYSIS WITH REFLEXED CULTURE AND MICROSCOPIC EXAM. Procedure Abnormality Status --------- ------ URINALYSIS WITH REFLEX C...[[id number]]AbnormalFinal result MICROSCOPIC URINALYSIS[[id number]] Abnormal Final result URINE CULTURE, REFLEXED[[id number]] Please view results for these tests on the individual orders. URINE CULTURE, ROUTINE AEROBIC (07/17/2016 5:52 AM) Component Value Range Quantitative Culture No growth at 1/100 dilution Specimen Culture - Urine, Other:
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
== END 2016-09-04 20:33 | disposition home or self-care (01) ==
LOC: ER 20:01
DX: T15.91XA Foreign body on external eye, part unspecified, right eye, initial encounter (principal); Z87.891 Personal history of nicotine dependence; Z87.440 Personal history of urinary (tract) infections; F41.9 Anxiety disorder, unspecified; F32.9 Major depressive disorder, single episode, unspecified; J45.909 Unspecified asthma, uncomplicated

== ENCOUNTER 2016-09-30 21:28 | Emergency (ER) | payer MEDICARE, MEDICAID ==
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
[2016-09-30] MEDS ORDERED: METOCLOPRAMIDE HCL 5 MG/ML VIAL IM ONE (23:38)
[2016-09-30] MEDS ORDERED: diphenhydrAMINE HCL 50 MG/ML VIAL IM ONE (23:38)
[2016-09-30] MEDS ORDERED: METOCLOPRAMIDE HCL 5 MG/ML VIAL ONE (23:39)
[2016-09-30] MEDS ORDERED: diphenhydrAMINE HCL 50 MG/ML VIAL ONE (23:39)
--- OUTSIDE RECORDS SUMMARY | 2016-09-30 23:41 | XMS REPORT | Continuity of Care Document ---
:1980 Author Organization [employer] [place] [address] Care Team Providers Name Role Phone Blanche Elliott Primary Care Provider [phone] Source Comments This disclosure is being made pursuant to the [facility] ([facility]) program and maynot contain all information available regarding this patient.[employer] Active Allergies and Adverse Reactions Allergen Noted [...]
--- OUTSIDE RECORDS SUMMARY | 2016-09-30 23:41 | XMS REPORT | Continuity of Care Document ---
:1980 Author Organization [facility] ([facility]) Address [address] [place] [address] Phone [phone] Care Team Providers Name Role Phone Maverick Peoples Brandt Primary Care Provider [phone] Source Comments This disclosure is being made pursuant to the Care Everywhere program, applicable federal and state laws, and may not contain all informaitonavailable regarding this patient.[facility] ([facility]) Active Allergies and Adverse Reactions Allergen Noted Date Severity Reactions Comments Bupropion 07/17/2016 OTHER tremor Glatiramer (Copolymer 1) 07/17/2016 Urticaria (Hives) Latex 01/28/2013 Rash Current Medications Prescription Sig. Disp. Refills Start Date End Date Status dimethyl fumarate Take 240 mg Active (TECFIDERA) 240 mg XR by mouth 2 capsule times daily. pyridoxine (VITAMIN Take 100 mg Active B-6) 50 mg tablet by mouth daily. vitamin B complex Take 1 Tab by Active tablet mouth daily. sennosides 8.6 mg Take 2 Active tablet tablets by mouth in the morning and 1 tablet in the evening aripiprazole 5 mg Take 5 mg by Active tablet mouth daily. varenicline (CHANTIX) Take 1 tablet 56 tablet 2 07/06/2016 Active 0.5 mg tablet (0.5 mg total) by mouth 2 times daily. armodafinil (NUVIGIL) Take 250 mg Active 250 mg tablet by mouth daily. cholecalciferol Take 2,000 Active (VITAMIN D3) 2,000 Units by unit tablet mouth daily. multivitamin tablet Take 1 tablet Active by mouth daily. propranolol 10 mg Take 10 mg by Active tablet mouth 2 times daily. venlafaxine 150 mg XR Take 150 mg Active capsule by mouth daily. lactobacillus Take 1 Active rhamnosus (gg) capsule by (TROYLLE) 15 mouth daily. billion cell capsule loratadine 10 mg Take 1 tablet 30 tablet 11 08/04/2016 Active tablet (10 mg total) by mouth daily. LORazepam 1 mg tablet Take 1 tablet 30 tablet 1 09/15/2016 Active (1 mg total) by mouth at bedtime as needed. LORazepam 0.5 mg Take 1 tablet 30 tablet 1 08/04/2016 Discontinued tablet (0.5 mg 7 total) by mouth at bedtime as needed. 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 insomnia (Primary Dx) 08/04/2016 Office Visit Maverick Smith Dx: Non-seasonal [...] Taken Blood Pressure 98/56 08/04/2016 8:21 AM TRAFFIC ADMINISTRATOR Pulse 72 08/04/2016 8:21 AM TRAFFIC ADMINISTRATOR Temperature 36.2 C (97.2 F) 08/04/2016 8:21 AM TRAFFIC ADMINISTRATOR Respiratory Rate 18 08/04/2016 8:21 AM TRAFFIC ADMINISTRATOR Height 1.6 m (5' 3") 07/17/2016 2:16 PM TRAFFIC ADMINISTRATOR Weight 97.523 kg (215 lb) 07/17/2016 2:16 PM TRAFFIC ADMINISTRATOR Body Mass Index 38.09 07/17/2016 2:16 PM TRAFFIC ADMINISTRATOR Oxygen Saturation 99% 07/19/2016 7:44 AM TRAFFIC ADMINISTRATOR Plan of Care Date Type Specialty Providers Description 2016 Appointment [facility] Maverick Peoples, Chief Comp: Patient DO Reported Reason For 89 YEN Visit [place] C[place] [id number] [phone] Health Maintenance Due Date Last Done Comments Hepatitis B Vaccine (1 of 3 - Primary 1978 Series) Tdap Vaccine 1989 MMR Vaccine 1996 Td Vaccine 1996 Pneumococcal Vaccine (1 of 1 - PPSV23) 1997 Cervical Cancer Screening 12/21/2017 12/21/2014, 04/10/2013 Lipid Disorder Screening 06/19/2018 06/19/2013 Influenza Vaccine: Seasonal Completed Results from Last 3 Months EPIDEMIOLOGY CULTURE-VREF (07/19/2016 12:59 PM) Component Value Range VRE Culture Growth No Vancomycin Resistant Enterococcus isolated Specimen Culture - Rectal Swab MRSA/SA PCR (07/19/2016 12:57 PM) Component Value Range MRSA by PCR Negative Negative S. AUREUS by PCR NegativeComment:Negative for SA Negative Specimen Nasal Swab (MRSA) - Nasal Swab Narrative Test methodology:PCR amplification; Xpert SA Test (Zane Prep) CHEST - AP/PA (07/18/2016 10:47 AM) Impressions [...] Results - SunJul 18, 2016 12:21 PM TRAFFIC ADMINISTRATOR Procedure: CHEST - AP/PA Technique: Portable AP [...] of this test were determined by the [facility] Pathology [facility].It has [...] AT 830AM Normal 211 - 946 pg/mL Hckedelimnoze084 - 210 pg/mL Deficient<150pg/mL Specimen Blood MRI SPINE THORACIC W/WO CONTRAST ([id number]) (07/17/2016 10:14 AM) Impressions Impression: 1. Extensive [...] to: PERSON CONTACTED:Dr. Fonseca DATE: 07/17/2016 TIME CALLED:[phone] PHONE/PAGER:[phone] Narrative Procedure: MRI BRAIN W/WO CONTRAST ([id number]), MRI SPINE THORACIC W/WO CONTRAST ([id number]), MRI SPINE CERVICAL W/WO CONTRAST ([id number]) Indication: Weakness, rule out MS flare. Technique: [...] Results - SunJul 17, 2016 2:26 PM TRAFFIC ADMINISTRATOR Procedure: MRI BRAIN W/WO CONTRAST ([id number]), MRI SPINE THORACIC W/WO CONTRAST ([id number]), MRI SPINE CERVICAL W/WO CONTRAST ([id number]) Indication: Weakness, rule out MS flare. Technique: [...] CONTACTED: Dr. Fonseca DATE: 07/17/2016 TIME CALLED: [phone] PHONE/PAGER: [phone] MRI SPINE CERVICAL W/WO CONTRAST ([id number]) (07/17/2016 10:14 AM) Impressions Impression: 1. Extensive [...] to: PERSON CONTACTED:Dr. Fonseca DATE: 07/17/2016 TIME CALLED:[phone] PHONE/PAGER:[phone] Narrative Procedure: MRI BRAIN W/WO CONTRAST ([id number]), MRI SPINE THORACIC W/WO CONTRAST ([id number]), MRI SPINE CERVICAL W/WO CONTRAST ([id number]) Indication: Weakness, rule out MS flare. Technique: [...] Results - SunJul 17, 2016 2:26 PM TRAFFIC ADMINISTRATOR Procedure: MRI BRAIN W/WO CONTRAST ([id number]), MRI SPINE THORACIC W/WO CONTRAST ([id number]), MRI SPINE CERVICAL W/WO CONTRAST ([id number]) Indication: Weakness, rule out MS flare. Technique: [...] CONTACTED: Dr. Fonseca DATE: 07/17/2016 TIME CALLED: [phone] PHONE/PAGER: [phone] MRI BRAIN W/WO CONTRAST ([id number]) (07/17/2016 10:14 AM) Impressions Impression: 1. Extensive [...] to: PERSON CONTACTED:Dr. Fonseca DATE: 07/17/2016 TIME CALLED:[phone] PHONE/PAGER:[phone] Narrative Procedure: MRI BRAIN W/WO CONTRAST ([id number]), MRI SPINE THORACIC W/WO CONTRAST ([id number]), MRI SPINE CERVICAL W/WO CONTRAST ([id number]) Indication: Weakness, rule out MS flare. Technique: [...] Results - SunJul 17, 2016 2:26 PM TRAFFIC ADMINISTRATOR Procedure: MRI BRAIN W/WO CONTRAST ([id number]), MRI SPINE THORACIC W/WO CONTRAST ([id number]), MRI SPINE CERVICAL W/WO CONTRAST ([id number]) Indication: Weakness, rule out MS flare. Technique: [...] CONTACTED: Dr. Fonseca DATE: 07/17/2016 TIME CALLED: [phone] PHONE/PAGER: [phone] FILM-STORE& INTER (07/17/2016 7:12 AM) Impressions Findings and impression: The portable exam is grossly within normal limits. No prior comparison available. Narrative Outside film interpretation requested. Chest radiograph AP portable single view obtained on 07/17/2016 at [facility] at 0227 hours. Indication: Shortness of breath and cough. Procedure Note Wilbur, Incoming Imaging Results - SunJul 17, 2016 10:49 AM TRAFFIC ADMINISTRATOR Outside film interpretation requested. Chest radiograph AP portable single view obtained on 07/17/2016 at [facility] at 0227 hours. Indication: Shortness of breath [...] Clear Clear pH, Urine 6.0 <9.0 Spec [place], Urine <1.005 1.000-1.030 Glucose, Urine Negative Negative [...] Abnormality Status --------- ------ URINALYSIS WITH REFLEX C...[[id number]]AbnormalFinal result MICROSCOPIC URINALYSIS[[id number]] Abnormal Final result URINE CULTURE, REFLEXED[[id number]] Please view results for these tests on the individual orders. URINE CULTURE, ROUTINE AEROBIC (07/17/2016 5:52 AM) Component Value Range Quantitative Culture No growth at 1/100 dilution Specimen Culture - Urine, Other:
[2016-10-01 00:06] VITALS: BP 133/56
== END 2016-10-01 00:04 | disposition home or self-care (01) ==
LOC: ER 21:28
DX: S09.90XA Unspecified injury of head, initial encounter (principal); G43.909 Migraine, unspecified, not intractable, without status migrainosus; Z87.440 Personal history of urinary (tract) infections; J45.909 Unspecified asthma, uncomplicated; F41.9 Anxiety disorder, unspecified; F32.9 Major depressive disorder, single episode, unspecified; Z87.891 Personal history of nicotine dependence; W18.2XXA Fall in (into) shower or empty bathtub, initial encounter; W22.8XXA Striking against or struck by other objects, initial encounter

== ENCOUNTER 2016-10-06 22:48 | Emergency (ER) | payer MEDICARE, MEDICAID ==
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
[2016-10-07] MEDS ORDERED: diphenhydrAMINE HCL 50 MG/ML VIAL ONE (00:15)
[2016-10-07] MEDS ORDERED: PROCHLORPERAZINE EDISYLATE 5 MG/ML VIAL ONE (00:15)
[2016-10-07] MEDS: diphenhydrAMINE HCL 50 MG/ML VIAL IV ONE (00:19)
[2016-10-07] MEDS: PROCHLORPERAZINE EDISYLATE 5 MG/ML VIAL IV ONE (00:19)
--- OUTSIDE RECORDS SUMMARY | 2016-10-07 00:26 | XMS REPORT | Continuity of Care Document ---
:1980 Author Organization [employer] [place] [address] Care Team Providers Name Role Phone Blanche Elliott Primary Care Provider [phone] Source Comments This disclosure is being made pursuant to the [employer] program and maynot contain all information available regarding this patient.[employer] Active Allergies and Adverse Reactions Allergen Noted [...]
--- OUTSIDE RECORDS SUMMARY | 2016-10-07 00:26 | XMS REPORT | Continuity of Care Document ---
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 (Primary Dx) 08/04/2016 Office Visit Maverick Smith Dx: Non-seasonal Primary A, DO allergic rhinitis due to animal hair and dander (Primary Dx) 07/17/2016 - Hospital Encounter General Care Fercho Ferro MD 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, T, 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, (Primary Dx) Kal Santiago MD Social History Tobacco Use Types Packs/Day Years Used Date Current Every Day Smoker 0.25 Smokeless Tobacco: Never Used Tobacco Cessation:Ready to Quit: Yes; Counseling Given: No Comments: Alcohol Use Drinks/Week oz/Week Comments No Last Filed Vital Signs Vital Sign Reading Time Taken Blood Pressure 98/56 08/04/2016 8:21 AM KITCHEN AND COUNTER WORKER Pulse 72 08/04/2016 8:21 AM KITCHEN AND COUNTER WORKER Temperature 36.2 C (97.2 F) 08/04/2016 8:21 AM KITCHEN AND COUNTER WORKER Respiratory Rate 18 08/04/2016 8:21 AM KITCHEN AND COUNTER WORKER Height 1.6 m (5' 3") 07/17/2016 2:16 PM KITCHEN AND COUNTER WORKER Weight 97.523 kg (215 lb) 07/17/2016 2:16 PM KITCHEN AND COUNTER WORKER Body Mass Index 38.09 07/17/2016 2:16 PM KITCHEN AND COUNTER WORKER Oxygen Saturation 99% 07/19/2016 7:44 AM KITCHEN AND COUNTER WORKER Plan of Care Date Type Specialty Providers Description 2016 Appointment Ranjan Solano - Primary Maverick Peoples, Chief Comp: Patient DO Reported Reason For [address] Visit [place] [id number] [phone] Health Maintenance Due Date Last Done Comments [...] Narrative Test methodology:PCR amplification; Xpert SA Test ([employer]) CHEST - AP/PA (07/18/2016 10:47 AM) Impressions [...] Results - SunJul 18, 2016 12:21 PM KITCHEN AND COUNTER WORKER Procedure: CHEST - AP/PA Technique: Portable AP [...] of this test were determined by the [facility].It [...] AT 830AM Normal 211 - 946 pg/mL [id number] - 210 pg/mL Deficient<150pg/mL Specimen Blood MRI SPINE THORACIC W/WO CONTRAST ([id number]) (07/17/2016 10:14 AM) Impressions Impression: 1. Extensive [...] to: PERSON CONTACTED:Dr. Fonseca DATE: 07/17/2016 TIME CALLED:[phone] PHONE/PAGER:[phone] Narrative Procedure: MRI BRAIN W/WO CONTRAST ([id number]), MRI SPINE THORACIC W/WO CONTRAST ([id number]), MRI SPINE CERVICAL W/WO CONTRAST ([id number]) Indication: Weakness, rule out MS flare. Technique: [...] Results - SunJul 17, 2016 2:26 PM KITCHEN AND COUNTER WORKER Procedure: MRI BRAIN W/WO CONTRAST ([id number]), MRI SPINE THORACIC W/WO CONTRAST ([id number]), MRI SPINE CERVICAL W/WO CONTRAST ([id number]) Indication: Weakness, rule out MS flare. Technique: [...] CONTACTED: Dr. Fonseca DATE: 07/17/2016 TIME CALLED: [phone] PHONE/PAGER: [phone] MRI SPINE CERVICAL W/WO CONTRAST ([id number]) (07/17/2016 10:14 AM) Impressions Impression: 1. Extensive [...] to: PERSON CONTACTED:Dr. Fonseca DATE: 07/17/2016 TIME CALLED:[phone] PHONE/PAGER:[phone] Narrative Procedure: MRI BRAIN W/WO CONTRAST ([id number]), MRI SPINE THORACIC W/WO CONTRAST ([id number]), MRI SPINE CERVICAL W/WO CONTRAST ([id number]) Indication: Weakness, rule out MS flare. Technique: [...] Results - SunJul 17, 2016 2:26 PM KITCHEN AND COUNTER WORKER Procedure: MRI BRAIN W/WO CONTRAST ([id number]), MRI SPINE THORACIC W/WO CONTRAST ([id number]), MRI SPINE CERVICAL W/WO CONTRAST ([id number]) Indication: Weakness, rule out MS flare. Technique: [...] CONTACTED: Dr. Fonseca DATE: 07/17/2016 TIME CALLED: [phone] PHONE/PAGER: [phone] MRI BRAIN W/WO CONTRAST ([id number]) (07/17/2016 10:14 AM) Impressions Impression: 1. Extensive [...] to: PERSON CONTACTED:Dr. Fonseca DATE: 07/17/2016 TIME CALLED:[phone] PHONE/PAGER:[phone] Narrative Procedure: MRI BRAIN W/WO CONTRAST ([id number]), MRI SPINE THORACIC W/WO CONTRAST ([id number]), MRI SPINE CERVICAL W/WO CONTRAST ([id number]) Indication: Weakness, rule out MS flare. Technique: [...] Procedure Note Wilbur, Incoming Imaging Results - Mon Jul 17, 2016 2:26 PM KITCHEN AND COUNTER WORKER Procedure: MRI BRAIN W/WO CONTRAST ([id number]), MRI SPINE THORACIC W/WO CONTRAST ([id number]), MRI SPINE CERVICAL W/WO CONTRAST ([id number]) Indication: Weakness, rule out MS flare. Technique: [...] CONTACTED: Dr. Fonseca DATE: 07/17/2016 TIME CALLED: [phone] PHONE/PAGER: [phone] FILM-STORE& INTER (07/17/2016 7:12 AM) Impressions Findings and impression: The portable exam is grossly within normal limits. No prior comparison available. Narrative Outside film interpretation requested. Chest radiograph AP portable single view obtained on 07/17/2016 at [facility] at 0227 hours. Indication: Shortness of breath and cough. Procedure Note Wilbur, Incoming Imaging Results - SunJul 17, 2016 10:49 AM KITCHEN AND COUNTER WORKER Outside film interpretation requested. Chest radiograph AP portable single view obtained on 07/17/2016 at [facility] at 0227 hours. Indication: Shortness of breath [...] Clear Clear pH, Urine 6.0 <9.0 Spec [place], Urine <1.005 1.000-1.030 Glucose, Urine Negative Negative [...] Abnormality Status --------- ------ URINALYSIS WITH REFLEX C...[[id number]]AbnormalFinal result MICROSCOPIC URINALYSIS[[id number]] Abnormal Final result URINE CULTURE, REFLEXED[[id number]] Please view results for these tests on the individual orders. URINE CULTURE, ROUTINE AEROBIC (07/17/2016 5:52 AM) Component Value Range Quantitative Culture No growth at 1/100 dilution Specimen Culture - Urine, Other:
[2016-10-07 02:01] VITALS: BP 96/62
== END 2016-10-07 02:04 | disposition home or self-care (01) ==
LOC: ER 22:48
DX: G44.89 Other headache syndrome (principal)

== ENCOUNTER 2016-10-13 19:21 | Emergency (ER) | payer MEDICARE, MEDICAID ==
[2016-10-13 19:42] VITALS: BP 118/77
[2016-10-13] MEDS ORDERED: ONDANSETRON HCL/PF 2 MG/ML VIAL ONE (20:13)
[2016-10-13] MEDS ORDERED: KETOROLAC TROMETHAMINE 60 MG/2 ML VIAL IM ONE ×2 (20:13)
[2016-10-13] MEDS ORDERED: ONDANSETRON HCL/PF 2 MG/ML VIAL IM ONE (20:13)
--- OUTSIDE RECORDS SUMMARY | 2016-10-13 20:15 | XMS REPORT | Continuity of Care Document ---
:1980 Author Organization [employer] [place] [address] Care Team Providers Name Role Phone Blanche Elliott Primary Care Provider [phone] Source Comments This disclosure is being made pursuant to the [employer] program and maynot contain all information available regarding this patient.[employer] Active Allergies and Adverse Reactions Allergen Noted [...]
--- OUTSIDE RECORDS SUMMARY | 2016-10-13 20:15 | XMS REPORT | Continuity of Care Document ---
:1980 Author Organization [facility] ([facility]) Address [address] [place] [address] Phone [phone] Care Team Providers Name Role Phone Maverick Peoples Brandt Primary Care Provider [phone] Source Comments This disclosure is being made pursuant to the Care Everywhere program, applicable federal and state laws, and may not contain all informaitonavailable regarding this patient.[facility] ([facility]) Active Allergies and Adverse Reactions Allergen Noted [...] Refill Lexy Jensen, Dx: Drug induced Primary RN LIAISON insomnia (Primary Dx) 08/04/2016 Office Visit Maverick [...] Taken Blood Pressure 98/56 08/04/2016 8:21 AM ROLL SLICING 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 TENDER Pulse 72 08/04/2016 8:21 AM ROLL SLICING MACHINE TENDER Temperature 36.2 C (97.2 F) 08/04/2016 8:21 AM ROLL SLICING MACHINE TENDER Respiratory Rate 18 08/04/2016 8:21 AM ROLL SLICING MACHINE TENDER Height 1.6 m (5' 3") 07/17/2016 2:16 PM ROLL SLICING MACHINE TENDER Weight 97.523 kg (215 lb) 07/17/2016 2:16 PM ROLL SLICING MACHINE TENDER Body Mass Index 38.09 07/17/2016 2:16 PM ROLL SLICING MACHINE TENDER Oxygen Saturation 99% 07/19/2016 7:44 AM ROLL SLICING MACHINE TENDER Plan of Care Date Type Specialty Providers Description 2016 Appointment Ranjan Solano - Primary Maverick Peoples, Chief Comp: Patient DO Reported Reason For [address] Visit [place] [id number] [phone] Health Maintenance Due Date Last Done Comments [...] Narrative Test methodology:PCR amplification; Xpert SA Test ([employer]) CHEST - AP/PA (07/18/2016 10:47 AM) Impressions [...] Results - SunJul 18, 2016 12:21 PM ROLL SLICING MACHINE TENDER Procedure: CHEST - AP/PA Technique: Portable AP [...] this test were determined by the [facility] Molecular Pathology [facility].It [...] AT 830AM Normal 211 - 946 pg/mL [id number] - 210 pg/mL Deficient<150pg/mL Specimen Blood MRI SPINE THORACIC W/WO CONTRAST ([id number]) (07/17/2016 10:14 AM) Impressions Impression: 1. Extensive [...] to: PERSON CONTACTED:Dr. Fonseca DATE: 07/17/2016 TIME CALLED:[phone] PHONE/PAGER:[phone] Narrative Procedure: MRI BRAIN W/WO CONTRAST ([id number]), MRI SPINE THORACIC W/WO CONTRAST ([id number]), MRI SPINE CERVICAL W/WO CONTRAST ([id number]) Indication: Weakness, rule out MS flare. Technique: [...] Results - SunJul 17, 2016 2:26 PM ROLL SLICING MACHINE TENDER Procedure: MRI BRAIN W/WO CONTRAST ([id number]), MRI SPINE THORACIC W/WO CONTRAST ([id number]), MRI SPINE CERVICAL W/WO CONTRAST ([id number]) Indication: Weakness, rule out MS flare. Technique: [...] CONTACTED: Dr. Fonseca DATE: 07/17/2016 TIME CALLED: [phone] PHONE/PAGER: [phone] MRI SPINE CERVICAL W/WO CONTRAST ([id number]) (07/17/2016 10:14 AM) Impressions Impression: 1. Extensive [...] to: PERSON CONTACTED:Dr. Fonseca DATE: 07/17/2016 TIME CALLED:[phone] PHONE/PAGER:[phone] Narrative Procedure: MRI BRAIN W/WO CONTRAST ([id number]), MRI SPINE THORACIC W/WO CONTRAST ([id number]), MRI SPINE CERVICAL W/WO CONTRAST ([id number]) Indication: Weakness, rule out MS flare. Technique: [...] Results - SunJul 17, 2016 2:26 PM ROLL SLICING MACHINE TENDER Procedure: MRI BRAIN W/WO CONTRAST ([id number]), MRI SPINE THORACIC W/WO CONTRAST ([id number]), MRI SPINE CERVICAL W/WO CONTRAST ([id number]) Indication: Weakness, rule out MS flare. Technique: [...] CONTACTED: Dr. Fonseca DATE: 07/17/2016 TIME CALLED: [phone] PHONE/PAGER: [phone] MRI BRAIN W/WO CONTRAST ([id number]) (07/17/2016 10:14 AM) Impressions Impression: 1. Extensive [...] to: PERSON CONTACTED:Dr. Fonseca DATE: 07/17/2016 TIME CALLED:[phone] PHONE/PAGER:[phone] Narrative Procedure: MRI BRAIN W/WO CONTRAST ([id number]), MRI SPINE THORACIC W/WO CONTRAST ([id number]), MRI SPINE CERVICAL W/WO CONTRAST ([id number]) Indication: Weakness, rule out MS flare. Technique: [...] - Mon Jul 17, 2016 2:26 PM ROLL SLICING MACHINE TENDER Procedure: MRI BRAIN W/WO CONTRAST ([id number]), MRI SPINE THORACIC W/WO CONTRAST ([id number]), MRI SPINE CERVICAL W/WO CONTRAST ([id number]) Indication: Weakness, rule out MS flare. Technique: [...] CONTACTED: Dr. Fonseca DATE: 07/17/2016 TIME CALLED: [phone] PHONE/PAGER: [phone] FILM-STORE& INTER (07/17/2016 7:12 AM) Impressions Findings and impression: The portable exam is grossly within normal limits. No prior comparison available. Narrative Outside film interpretation requested. Chest radiograph AP portable single view obtained on 07/17/2016 at [facility] at 0227 hours. Indication: Shortness of breath and cough. Procedure Note Wilbur, Incoming Imaging Results - SunJul 17, 2016 10:49 AM ROLL SLICING MACHINE TENDER Outside film interpretation requested. Chest radiograph AP portable single view obtained on 07/17/2016 at [facility] at 0227 hours. Indication: Shortness of [...] Clear Clear pH, Urine 6.0 <9.0 Spec [place], Urine <1.005 1.000-1.030 Glucose, Urine Negative Negative [...] Abnormality Status --------- ------ URINALYSIS WITH REFLEX C...[[id number]]AbnormalFinal result MICROSCOPIC URINALYSIS[[id number]] Abnormal Final result URINE CULTURE, REFLEXED[[id number]] Please view results for these tests on the individual orders. URINE CULTURE, ROUTINE AEROBIC (07/17/2016 5:52 AM) Component Value Range Quantitative Culture No growth at 1/100 dilution Specimen Culture - Urine, Other:
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
[2016-10-13 21:14] LABS: Urine Bilirubin Negative (NEGATIVE); Urine Blood Negative /ul (NEGATIVE); Urine Ketone Negative (NEGATIVE); Urine Nitrite Negative (NEGATIVE); Urine Protein Negative (NEGATIVE); Urine Urobilinogen Normal (NORMAL); Urine pH 6.5 pH (5.0-7.0)
[2016-10-13 21:23] LABS: Urine Appearance Clear; Urine Bacteria 2+; Urine Color Yellow; Urine Mucus Many - 3+; Urine RBC 0-5 /hpf (0-5); Urine WBC 0-5 /hpf (0-5)
[2016-10-13] MEDS ORDERED: SULFAMETHOXAZOLE/TRIMETHOPRIM 1 TAB TABLET PO ONE (21:28)
[2016-10-13] MEDS ORDERED: SULFAMETHOXAZOLE/TRIMETHOPRIM 1 TAB TABLET ONE (21:32)
== END 2016-10-13 21:39 | disposition home or self-care (01) ==
LOC: ER 19:21
DX: G44.89 Other headache syndrome (principal)

== ENCOUNTER 2016-10-22 18:34 | Emergency (ER) | payer MEDICARE, MEDICAID ==
[2016-10-22 18:45] VITALS: BP 149/88
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
--- OUTSIDE RECORDS SUMMARY | 2016-10-22 19:16 | XMS REPORT | Continuity of Care Document ---
:1980 Author Organization [employer] [place] [address] Care Team Providers Name Role Phone Blanche Elliott Primary Care Provider [phone] Source Comments This disclosure is being made pursuant to the [employer] program and maynot contain all information available regarding this patient.[employer] Active Allergies and Adverse Reactions Allergen Noted [...]
--- OUTSIDE RECORDS SUMMARY | 2016-10-22 19:16 | XMS REPORT | Continuity of Care Document ---
:1980 Author Organization [facility] ([facility]) Address [address] [place] [address] Phone [phone] Care Team Providers Name Role Phone Maverick Peoples Brandt Primary Care Provider [phone] Source Comments This disclosure is being made pursuant to the Care Everywhere program, applicable federal and state laws, and may not contain all informaitonavailable regarding this patient.[facility] ([facility]) Active Allergies and Adverse Reactions Allergen Noted Date Severity Reactions Comments Bupropion 07/17/2016 OTHER tremor Glatiramer (Copolymer 1) 07/17/2016 Urticaria (Hives) Latex 01/28/2013 Rash Current Medications Prescription Sig. Disp. Refills Start End Date Status Date pyridoxine (VITAMIN Take 100 mg by Active B-6) 50 mg tablet mouth daily. vitamin B complex Take 1 Tab by Active tablet mouth daily. sennosides 8.6 mg Take 2 tablets by Active tablet mouth in the morning and 1 tablet in the evening varenicline Take 1 tablet 56 tablet 2 Active (CHANTIX) 0.5 mg (0.5 mg total) by 7 tablet mouth 2 times daily. armodafinil Take 250 mg by Active (NUVIGIL) 250 mg mouth daily. tablet cholecalciferol Take 2,000 Units Active (VITAMIN D3) 2,000 by mouth daily. unit tablet multivitamin tablet Take 1 tablet by Active mouth daily. propranolol 10 mg Take 10 mg by Active tablet mouth 2 times daily. venlafaxine 150 mg Take 225 mg by Active XR capsule mouth daily. lactobacillus Take 1 capsule by Active rhamnosus (gg) mouth daily. (CULTURELLE) 15 billion cell capsule loratadine 10 mg Take 1 tablet (10 30 tablet 11 Active tablet mg total) by 7 mouth daily. LORazepam 1 mg Take 1 tablet (1 30 tablet 1 Active tablet mg total) by 7 mouth at bedtime as needed. natalizumab Inject Active (TYSABRI) 20 mg/mL intravenously injection once. fluticasone 50 Use 2 sprays in 16 g 1 Active mcg/Actuation nasal each nostril 7 spray daily. dimethyl fumarate Take 240 mg by 10/17/19 Discontinued (TECFIDERA) 240 mg mouth 2 times 17 XR capsule daily. aripiprazole 5 mg Take 5 mg by 10/17/19 Discontinued tablet mouth daily. 17 Active Problems Problem Noted Date Weakness 07/17/2016 Multiple sclerosis, relapsing-remitting 07/17/2016 Exacerbation of multiple sclerosis 07/17/2016 Pain in joint, pelvic region and thigh 12/25/2014 Breast asymmetry 12/25/2014 Well woman exam with routine gynecological exam 04/10/2013 Contraception management 02/04/2013 Low back pain 09/11/2012 Fever and chills 09/11/2012 Chronic UTI 09/11/2012 Multiple sclerosis 09/11/2012 Most Recent Encounters Date Type Specialty Providers Description 10/16/2016 Office Visit Ranjan Solano - Primary Armida Caro PA-C Dx: Migraine without status migrainosus, not intractable, unspecified migraine type (Primary Dx) 09/15/2016 Refill Ranjan Solano - Primary Lexy Jung LPN Dx: Drug induced insomnia (Primary Dx) 08/04/2016 Office Visit Ranjan Solano - Primary Maverick Peoples, Dx: Non- seasonal DO allergic rhinitis due to animal hair and dander (Primary Dx) Social History Tobacco Use Types Packs/Day Years Used Date Current Every Day Smoker 0.25 Smokeless Tobacco: Never Used Tobacco Cessation:Ready to Quit: Yes; Counseling Given: No Comments: Alcohol Use Drinks/Week oz/Week Comments No Last Filed Vital Signs Vital Sign Reading Time Taken Blood Pressure 97/63 10/16/2016 2:02 PM CDT Pulse 77 10/16/2016 2:02 PM CDT Temperature 36.8 C (98.2 F) 10/16/2016 2:02 PM CDT Respiratory Rate 18 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 Height 1.6 m (5' 3") 07/17/2016 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 Weight 97.523 kg (215 lb) 07/17/2016 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 Body Mass Index 38.09 07/17/2016 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 Oxygen Saturation 99% 07/19/2016 7:44 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 Plan of Care Date Type Specialty Providers Description 2016 Appointment [facility] Maverick Peoples, Chief Comp: Patient DO Reported Reason For [address] [facility] Visit [place]ARRY CARRERA [id number] [phone] Health Maintenance Due Date Last Done Comments Hepatitis B Vaccine (1 of 3 - Primary 1978 Series) Tdap Vaccine 1989 MMR Vaccine 1996 Td Vaccine 1996 Pneumococcal Vaccine (1 of 1 - PPSV23) 1997 Influenza Vaccine: Seasonal (Season Ended) 2017 Cervical Cancer Screening 12/21/2017 12/21/2014, 04/10/2013 Lipid Disorder Screening 06/19/2018 06/19/2013 Results from Last 3 Months Not on file
== END 2016-10-22 19:48 | disposition home or self-care (01) ==
LOC: ER 18:34
DX: F41.1 Generalized anxiety disorder (principal)

== ENCOUNTER 2016-11-27 20:33 | Emergency (ER) | payer MEDICARE, MEDICAID ==
[2016-11-27 20:49] VITALS: BP 108/75
[2016-11-27 21:48] LABS: Hematocrit 40.6 % (37.0-47.0); Hemoglobin 13.5 gm/dL (12.5-16.0); Mean Cell Volume 92.9 fl (78-100); Mean Corpuscular Hemoglobin 30.9 pg (27-31); Mean Corpuscular Hgb Conc 33.3 g/dl (32-36); Mean Platelet Volume 11.5 fl (6.0-9.5); Neutrophil # 5.3 K/mm3 (1.3-6.0); Neutrophil % 53.3 % (42-75.0); Platelet Count 274 K/mm3 (150-450); Red Blood Count 4.37 M/mm3 (4.2-5.4); Red Cell Distribution Width 13.1 % (11.5-14.0)
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
--- OUTSIDE RECORDS SUMMARY | 2016-11-27 21:53 | XMS REPORT | Continuity of Care Document ---
:1980 Author Organization [facility] ([facility]) Address [address] [place] [address] Phone [phone] Care Team Providers Name Role Phone Maverick Peoples Brandt Primary Care Provider [phone] Source Comments This disclosure is being made pursuant to the Care Everywhere program, applicable federal and state laws, and may not contain all informaitonavailable regarding this patient.[facility] ([facility]) Active Allergies and Adverse Reactions Allergen Noted Date Severity Reactions Comments Bupropion 07/17/2016 OTHER tremor [place] 11/24/2016 Medium Nausea & Vomiting Reviewed by Brittany Sotelo 02/14/2012 Glatiramer (Copolymer 07/17/2016 Urticaria (Hives) 1) Latex 01/28/2013 Rash Current Medications Prescription Sig. Disp. Refills Start End Date Status Date pyridoxine (VITAMIN Take 100 mg by Active B-6) 50 mg tablet mouth daily. vitamin B complex Take 1 Tab by Active tablet mouth daily. sennosides 8.6 mg Take 2 tablets by Active tablet mouth in the morning and 1 tablet in the evening armodafinil Take 200 mg by Active (NUVIGIL) 250 mg mouth [...] mouth daily. (CULTURELLE) 15 billion cell capsule natalizumab Inject Active (TYSABRI) 20 mg/mL intravenously injection once. fluticasone 50 Use 2 sprays in 16 g 1 Active mcg/Actuation nasal each nostril 7 spray daily. diphenhydrAMINE 25 Take 25 mg by Active mg capsule mouth daily. DOCUSATE CALCIUM Take 4 tablets by Active (STOOL SOFTENER PO) mouth daily. varenicline Take 1 tablet 56 tablet 2 11/04/19 Discontinued (CHANTIX) 0.5 mg (0.5 mg total) by 7 17 tablet mouth 2 times daily. loratadine 10 mg Take 1 tablet (10 30 tablet 11 11/25/19 Discontinued tablet mg total) by 7 17 mouth daily. LORazepam 1 mg Take 1 tablet (1 30 tablet 1 11/04/19 Discontinued tablet mg total) by 7 17 mouth at bedtime as needed. 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 (Primary Dx) 10/16/2016 Office Visit Ranjan Solano - Primary Armida Caro Dx: Migraine without PA-C status migrainosus, not intractable, unspecified migraine type (Primary Dx) 09/15/2016 Refill Ranjan Solano - Primary Lexy Jung LPN Dx: Drug induced insomnia (Primary Dx) Social History Tobacco Use Types Packs/Day Years Used Date Current Every Day Smoker 0.25 Smokeless Tobacco: Never Used Tobacco Cessation:Ready to Quit: Yes; Counseling Given: No Comments: Alcohol Use Drinks/Week oz/Week Comments No Last Filed Vital Signs Vital Sign Reading Time Taken Blood Pressure 122/72 11/24/2016 2:04 PM CDT Pulse 108 11/24/2016 2:04 PM CDT Temperature 37 C (98.6 F) 11/24/2016 2:04 PM CDT Respiratory Rate 16 11/24/2016 2:04 PM CDT Height 1.6 m (5' 3") 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
--- OUTSIDE RECORDS SUMMARY | 2016-11-27 21:53 | XMS REPORT | Continuity of Care Document ---
:1980 Author Organization [facility] [place] [address] Care Team Providers Name Role Phone Blanche Elliott Primary Care Provider [phone] Source Comments This disclosure is being made pursuant to the [employer] program and maynot contain all information available regarding this patient.[facility] Active Allergies and Adverse Reactions Allergen Noted [...]
[2016-11-27 21:58] LABS: Prothrombin Time (Patient) 9.9 Seconds (9.4-11.4)
[2016-11-27 22:00] LABS: INR 0.95 INR (0.90-1.10)
== END 2016-11-27 22:30 | disposition home or self-care (01) ==
LOC: ER 20:33
DX: N92.1 Excessive and frequent menstruation with irregular cycle (principal); Z87.440 Personal history of urinary (tract) infections; F41.9 Anxiety disorder, unspecified; J45.909 Unspecified asthma, uncomplicated; F32.9 Major depressive disorder, single episode, unspecified; G43.909 Migraine, unspecified, not intractable, without status migrainosus; Z87.891 Personal history of nicotine dependence

== ENCOUNTER 2016-12-26 19:43 | Emergency (ER) | payer MEDICARE, MEDICAID ==
--- OUTSIDE RECORDS SUMMARY | 2016-12-26 20:00 | XMS REPORT | Continuity of Care Document ---
:1980 Author Organization [facility] [place] [address] Care Team Providers Name Role Phone Blanche Elliott Primary Care Provider [phone] Source Comments This disclosure is being made pursuant to the [place] program and maynot contain all information available regarding this patient.[facility] Active Allergies and Adverse Reactions Allergen Noted [...] from Last 3 Months Not on file Insurance Payer Benefit Plan / Group Subscriber ID Type Phone Address MEDICARE MEDICARE A AND B [id number] [phone] [address] [place] [address] Home: [address] ISAURA FISCHER [phone] [facility] [id number]
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
[2016-12-26] MEDS ORDERED: AMOX TR/POTASSIUM CLAVULANATE 875 MG TABLET PO ONE (20:16)
[2016-12-26] MEDS ORDERED: AMOX TR/POTASSIUM CLAVULANATE 875 MG TABLET ONE ×2 (20:20→20:27)
[2016-12-26 20:33] VITALS: BP 134/72
== END 2016-12-26 20:30 | disposition home or self-care (01) ==
LOC: ER 19:43
DX: L03.011 Cellulitis of right finger (principal)

== ENCOUNTER 2017-02-06 18:01 | Emergency (ER) | payer MEDICARE, MEDICAID ==
[2017-02-06 18:30] VITALS: BP 113/84
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
== END 2017-02-06 20:02 | disposition home or self-care (01) ==
LOC: ER 18:01
DX: S00.03XA Contusion of scalp, initial encounter (principal); M62.830 Muscle spasm of back; V00.811A Fall from moving wheelchair (powered), initial encounter; Y92.414 Local residential or business street as the place of occurrence of the external cause; W22.8XXA Striking against or struck by other objects, initial encounter; J45.909 Unspecified asthma, uncomplicated; G35 Multiple sclerosis

== ENCOUNTER 2017-03-07 22:12 | Emergency (ER) | payer MEDICARE, MEDICAID ==
[2017-03-07 22:25] VITALS: BP 127/85
[2017-03-07] MEDS ORDERED: KETOROLAC TROMETHAMINE 60 MG/2 ML VIAL IM ONE ×2 (23:25→23:30)
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
== END 2017-03-07 23:49 | disposition home or self-care (01) ==
LOC: ER 22:12
DX: H66.002 Acute suppurative otitis media without spontaneous rupture of ear drum, left ear (principal)

== ENCOUNTER 2017-03-20 19:03 | Emergency (ER) | payer MEDICARE, MEDICAID ==
[2017-03-20 19:19] VITALS: BP 159/75
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
== END 2017-03-20 19:47 | disposition home or self-care (01) ==
LOC: ER 19:03
DX: L30.9 Dermatitis, unspecified (principal); K04.7 Periapical abscess without sinus; F41.8 Other specified anxiety disorders

== ENCOUNTER 2017-04-17 17:55 | Emergency (ER) | payer MEDICARE, MEDICAID ==
[2017-04-17] MEDS ORDERED: SILVER SULFADIAZINE 50 APPL JAR TP ONE ×2 (18:11→18:12)
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
[2017-04-17 18:42] VITALS: BP 110/62
== END 2017-04-17 18:20 | disposition home or self-care (01) ==
LOC: ER 17:55
PROC: 0H9GXZZ Drainage of Left Hand Skin, External Approach (ICD-10-PCS; principal; 2017-04-17)
DX: L03.012 Cellulitis of left finger (principal); F41.8 Other specified anxiety disorders

== ENCOUNTER 2017-04-25 12:33 | Emergency (ER) | payer MEDICARE, MEDICAID ==
[2017-04-25] MEDS ORDERED: SULFAMETHOXAZOLE/TRIMETHOPRIM 1 TAB TABLET PO ONE (13:24)
[2017-04-25] MEDS ORDERED: MUPIROCIN 22 APPL TUBE TP ONE ×2 (13:24→13:28)
[2017-04-25] MEDS ORDERED: SULFAMETHOXAZOLE/TRIMETHOPRIM 1 TAB TABLET ONE (13:28)
[2017-04-25] MEDS ORDERED: KETOROLAC TROMETHAMINE 60 MG/2 ML VIAL IM ONE ×2 (13:29→13:31)
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
[2017-04-25 13:46] VITALS: BP 122/71
== END 2017-04-25 13:50 | disposition home or self-care (01) ==
LOC: ER 12:33
PROC: 2W3HX1Z Immobilization of Left Thumb using Splint (ICD-10-PCS; principal; 2017-04-25)
DX: A49.02 Methicillin resistant Staphylococcus aureus infection, unspecified site (principal); M79.645 Pain in left finger(s); Z87.891 Personal history of nicotine dependence; F41.9 Anxiety disorder, unspecified; F32.9 Major depressive disorder, single episode, unspecified

== ENCOUNTER 2017-05-19 22:19 | Inpatient (IN) | payer MEDICARE, MEDICAID ==
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
[2017-05-19 22:52] LABS: Hematocrit 41.5 % (37.0-47.0); Hemoglobin 13.6 gm/dL (12.5-16.0); Mean Cell Volume 92.4 fl (78-100); Mean Corpuscular Hemoglobin 30.3 pg (27-31); Mean Corpuscular Hgb Conc 32.8 g/dl (32-36); Mean Platelet Volume 10.7 fl (6.0-9.5); NRBC# 0.1 k/mm3 (0-1); Neutrophil # 7.6 K/mm3 (1.3-6.0); Neutrophil % 55.5 % (42-75.0); Platelet Count 302 K/mm3 (150-450); Red Blood Count 4.49 M/mm3 (4.2-5.4); Red Cell Distribution Width 14.1 % (11.5-14.0); White Blood Count 13.8 K/mm3 (4.0-10.5)
[2017-05-19 22:54] LABS: Urine Bilirubin Negative (NEGATIVE); Urine Blood 25 /ul (NEGATIVE); Urine Ketone Negative (NEGATIVE); Urine Protein 15 mg/dL (NEGATIVE); Urine Urobilinogen Normal (NORMAL); Urine pH 6.5 pH (5.0-7.0)
[2017-05-19 23:00] LABS: Anion Gap 10.3 mmol/L (6.8-13.8); BUN/Creatinine Ratio 10.7 (9.0-21.6); Calcium * 10.4 mg/dL (7.9-10.9); Carbon Dioxide 29.3 mmol/L (24-32.6); Estimated Creat Clear 75.1; Potassium 3.6 mmol/L (3.4-4.6)
[2017-05-19 23:04] LABS: Urine Appearance Slightly Cloudy; Urine Bacteria 3+; Urine Color Yellow; Urine Nitrite Positive (NEGATIVE); Urine RBC None Seen /hpf (0-5)
[2017-05-19] MEDS ORDERED: METHYLPREDNISOLONE SOD SUCC/PF 40 MG/ML VIAL IM ONE (23:48)
[2017-05-19] MEDS ORDERED: METHYLPREDNISOLONE SOD SUCC/PF 125 MG/2 ML VIAL ONE (23:51)
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
[2017-05-20] MEDS ORDERED: NICOTINE 21 MG PATC TD SCH (03:15)
[2017-05-20] MEDS: FAMOTIDINE 20 MG TABLET PO SCH ×2 (07:32→10:36)
[2017-05-20] MEDS ORDERED: VENLAFAXINE HCL 150 MG CAP.SR.24H PO SCH (09:00)
[2017-05-20] MEDS: METHYLPREDNISOLONE SOD SUCC IV SCH ×2 (10:34→21:11)
[2017-05-20] MEDS: NORMAL SALINE IV SCH ×2 (10:34→21:11)
[2017-05-20] MEDS: VENLAFAXINE HCL 150 MG, VENLAFAXINE HCL 75 MG PO SCH ×2 (10:35)
[2017-05-20] MEDS: SENNOSIDES/DOCUSATE SODIUM 1 TAB TABLET PO SCH ×2 (10:35→20:51)
[2017-05-20] MEDS: VITAMIN B COMP W-C 1 TAB TABLET PO SCH (10:35)
[2017-05-20] MEDS: BACLOFEN 10 MG TABLET PO SCH ×3 (10:35→17:37)
[2017-05-20] MEDS: LACTOBACILLUS ACIDOPHILUS 100 CAP BTL PO SCH (10:35)
[2017-05-20] MEDS: MULTIVITAMINS 1 CAP CAPSULE PO SCH (10:35)
[2017-05-20] MEDS: CHOLECALCIFEROL 1,000 UNIT CAPSULE PO SCH (10:36)
[2017-05-20] MEDS: LORazepam 0.5 MG TABLET PO SCH ×2 (10:36→20:53)
[2017-05-20] MEDS: diphenhydrAMINE HCL 25 MG CAPSULE PO SCH (20:51)
[2017-05-20] MEDS: ACETAMINOPHEN 500 MG TABLET PO SCH (20:51)
[2017-05-21 05:40] LABS: Hematocrit 38.3 % (37.0-47.0); Hemoglobin 12.9 gm/dL (12.5-16.0); Mean Cell Volume 91.4 fl (78-100); Mean Corpuscular Hemoglobin 30.8 pg (27-31); Mean Corpuscular Hgb Conc 33.7 g/dl (32-36); Platelet Count 293 K/mm3 (150-450); Red Blood Count 4.19 M/mm3 (4.2-5.4); Red Cell Distribution Width 14.2 % (11.5-14.0)
[2017-05-21 05:42] LABS: Total Cells Counted 100
[2017-05-21 05:51] LABS: Band 4 % (0-2.0); Dohle Bodies 1+; Immature Granulocyte 2 (0-1); Lymphocyte 11 % (20-51); Monocyte 3 % (0-9); Neutrophil 80 % (42-75); Platelet Estimate Normal (NORMAL)
--- NOTE | 2017-05-21 07:23 | PN ---
Subjective - Date and Time Seen Date: 05/21/17 Time: 07:17 Subjective Narrative: Patient was seen today AOX3 no acute distress, stated she was feeling much better than she did on adm. pt stated she is able to hold her phone and lift her arms. Objective - Review of Systems Generalized/Overall Review: Reports: No Symptoms Reported EENTM: Reports: No Symptoms Reported Respiratory: Reports: No Symptoms Reported Cardiac: Reports: No Symptoms Reported Abdominal: Reports: No Symptoms Reported Genitourinary Symptoms: Reports: No Symptoms Reported Musculoskeletal Complaints: Reports: Other - muscle weakness Neurological: Reports: Tremors, Weakness Skin: Reports: No Symptoms Reported Endocrine: Reports: No Symptoms Reported - Vitals Vitals: Last Vital Signs Temp 36.6 C 05/21/17 04:00 Pulse 108 H 05/21/17 04:00 Resp 18 05/21/17 04:00 BP 118/72 05/21/17 04:00 Pulse Ox 98 05/21/17 04:00 - Abnormal Lab Findings Abnormal Lab Findings: Abnormal Lab Results 05/21/17 Range/Units 05:15 WBC 20.0 H D (4.0-10.5) K/mm3 RBC 4.19 L (4.2-5.4) M/mm3 RDW 14.2 H (11.5-14.0) % MPV 11.0 H (6.0-9.5) fl Neutrophils % (Manual) 80 H (42-75) % Band Neuts % (Manual) 4 H (0-2.0) % Lymphocytes % (Manual) 11 L (20-51) % Immature Granulocytes 2 H (0-1) Neutrophils # (Manual) 16.0 H (1.3-6.0) K/mm3 Nucleated RBCs 3.0 H (0-1) % - Exam Constitutional: Present: Alert, Oriented x3, Cooperative, No distress, Obese ENT Exam: Present: hearing grossly normal Neck: Present: full range of motion Breasts: Present: Exam deferred Respiratory: Present: chest non-tender, lungs clear, normal breath sounds, no respiratory distress Cardiovascular/Chest: Present: normal peripheral pulses, regular rate, rhythm, no chest tenderness, no edema Abdomen: Present: Normal bowel sounds, soft, nontender, nondistended /Rectal: Present: Exam deferred Extremity: Present: normal range of motion, non-tender, normal inspection, no pedal edema, normal capillary refill Skin Exam: Present: normal color, warm/dry Neurologic: Present: alert, oriented x 3, abnormal gait, motor weakness Appearance: Present: appropriate appearance Eye contact: Present: cooperative, good eye contact Thoughts: Present: normal thought pattern Assessment/Plan Plan Narrative: Acute on chronic Multiple sclerosis exacerbation Pt stated she is able to life her hand and use her phone 04/16/17 Her last dose of Tysebri and was stopped by neurologist and to be started on new drug Ocrevus Per pt last MRI showed no new lesions. Continue with dose solu-medrol 500mg IV BID x4 days PT/OT eval and treatment neuro checks Continue with home medications for symptom management. Recurrent UTI Seen on urinalysis Pt with super-pubis catheter Continue with Rocephin Urine culture and blood culture pending Neurogenic bladder Pt stated she would wet her self continuously She currently have suprapubis catheter Asthma- stable No exacerbation Supplemented oxygen PRN Neb treatment pRN Code status: Full GI ppx: Pepcid VTE ppx:SCD TIme 20 minutes and case discussed with Dr Hoang - Problems/Diagnosis (1) Exacerbation of multiple sclerosis Problem: Acute (2) UTI (urinary tract infection) Problem: Acute (3) Depression Problem: Chronic (4) Asthma Problem: Chronic (5) Neurogenic bladder Problem: Chronic
[2017-05-21] MEDS: LACTOBACILLUS ACIDOPHILUS 100 CAP BTL PO SCH (09:17)
[2017-05-21] MEDS: MULTIVITAMINS 1 CAP CAPSULE PO SCH (09:18)
[2017-05-21] MEDS: VENLAFAXINE HCL 150 MG, VENLAFAXINE HCL 75 MG PO SCH ×2 (09:18)
[2017-05-21] MEDS: BACLOFEN 10 MG TABLET PO SCH ×3 (09:18→20:41)
[2017-05-21] MEDS: METHYLPREDNISOLONE SOD SUCC IV SCH ×2 (09:19→20:43)
[2017-05-21] MEDS: SENNOSIDES/DOCUSATE SODIUM 1 TAB TABLET PO SCH ×2 (09:19→20:42)
[2017-05-21] MEDS: NORMAL SALINE IV SCH ×2 (09:19→20:43)
[2017-05-21] MEDS: CHOLECALCIFEROL 1,000 UNIT CAPSULE PO SCH (09:19)
[2017-05-21] MEDS: VITAMIN B COMP W-C 1 TAB TABLET PO SCH (09:19)
[2017-05-21] MEDS: FAMOTIDINE 20 MG TABLET PO SCH (09:19)
[2017-05-21] MEDS: LORazepam 0.5 MG TABLET PO SCH (16:06)
[2017-05-21] MEDS: diphenhydrAMINE HCL 25 MG CAPSULE PO SCH (20:42)
[2017-05-21] MEDS: ACETAMINOPHEN 500 MG TABLET PO SCH (20:42)
--- NOTE | 2017-05-22 09:23 | PN ---
Subjective - Date and Time Seen Date: 05/22/17 Time: 09:19 Subjective Narrative: Patient just finished her breakfast . Says she is doing fine. BS was 97. Objective - Review of Systems Generalized/Overall Review: Reports: Weakness. Denies: Fever Respiratory: Denies: Cough, Shortness of Breath Cardiac: Denies: Chest Pain, Edema, Palpitations Abdominal: Denies: Nausea, Vomiting Genitourinary Symptoms: Denies: Urgency, Frequency - Vitals Vitals: Last Vital Signs Temp 37.0 C 05/22/17 06:49 Pulse 84 05/22/17 06:49 Resp 18 05/22/17 06:49 BP 122/68 05/22/17 06:49 Pulse Ox 98 05/22/17 06:49 - Exam Constitutional: Present: Alert, Oriented x3, Cooperative ENT Exam: Present: hearing grossly normal Neck: Present: supple Respiratory: Present: normal breath sounds, No rales, No wheezing Cardiovascular/Chest: Present: regular rate, rhythm, no JVD, no murmur Abdomen: Present: Normal bowel sounds, soft, nontender, nondistended Extremity: Present: no pedal edema, no calf tenderness Assessment/Plan - Problems/Diagnosis (1) Exacerbation of multiple sclerosis Problem: Acute Narrative: continue high dose IV steroids. (2) UTI (urinary tract infection) Problem: Acute Narrative: Pseudomonas UTI- change to IV cefepime. (3) Neurogenic bladder Problem: Chronic
[2017-05-22] MEDS ORDERED: CEFEPIME HCL 1 GM in DEXTROSE 5 % IN WATER 100 ML IV SCH ×2 (09:30)
[2017-05-22] MEDS: BACLOFEN 10 MG TABLET PO SCH ×3 (09:35→20:30)
[2017-05-22] MEDS: VENLAFAXINE HCL 150 MG, VENLAFAXINE HCL 75 MG PO SCH ×2 (09:35)
[2017-05-22] MEDS: LACTOBACILLUS ACIDOPHILUS 100 CAP BTL PO SCH (09:35)
[2017-05-22] MEDS: FAMOTIDINE 20 MG TABLET PO SCH (09:36)
[2017-05-22] MEDS: VITAMIN B COMP W-C 1 TAB TABLET PO SCH (09:36)
[2017-05-22] MEDS: CHOLECALCIFEROL 1,000 UNIT CAPSULE PO SCH (09:36)
[2017-05-22] MEDS: SENNOSIDES/DOCUSATE SODIUM 1 TAB TABLET PO SCH ×2 (09:36→20:29)
[2017-05-22] MEDS: MULTIVITAMINS 1 CAP CAPSULE PO SCH (09:36)
[2017-05-22] MEDS: Armodafinil [Nuvigil] 200 MG PO SCH (09:40)
[2017-05-22] MEDS: CEFEPIME HCL 1 GM in NORMAL SALINE 100 ML IV SCH ×2 (09:58→21:49)
[2017-05-22] MEDS: NORMAL SALINE IV SCH ×2 (10:41→20:35)
[2017-05-22] MEDS: METHYLPREDNISOLONE SOD SUCC IV SCH ×2 (10:41→20:35)
[2017-05-22] MEDS: LORazepam 0.5 MG TABLET PO SCH (14:22)
[2017-05-22] MEDS: ACETAMINOPHEN 500 MG TABLET PO SCH (20:29)
[2017-05-22] MEDS: diphenhydrAMINE HCL 25 MG CAPSULE PO SCH (20:30)
--- NOTE | 2017-05-23 08:10 | PN ---
Subjective - Date and Time Seen Date: 05/23/17 Time: 08:08 Subjective Narrative: Patient is much better. She has strong skidway man of her left hand now. Day # 4 of IV steroids. Objective - Review of Systems Generalized/Overall Review: Denies: Chills, Fever Respiratory: Denies: Cough, Shortness of Breath Cardiac: Denies: Chest Pain, Palpitations Abdominal: Denies: Nausea, Vomiting Genitourinary Symptoms: Denies: Urgency, Frequency - Vitals Vitals: Last Vital Signs Temp 36.4 C L 05/23/17 07:14 Pulse 80 05/23/17 07:14 Resp 18 05/23/17 07:14 BP 137/72 05/23/17 07:14 Pulse Ox 98 05/23/17 07:14 - Exam Constitutional: Present: Alert, Oriented x3, Cooperative ENT Exam: Present: hearing grossly normal Neck: Present: supple Respiratory: Present: chest non-tender, lungs clear, normal breath sounds Cardiovascular/Chest: Present: regular rate, rhythm, no JVD, no murmur Abdomen: Present: soft, nontender, nondistended Extremity: Present: no pedal edema, no calf tenderness Assessment/Plan - Problems/Diagnosis (1) Exacerbation of multiple sclerosis Problem: Acute Narrative: continue with IV steroids. (2) UTI (urinary tract infection) Problem: Acute Narrative: Pseudomonas UTI- Day # 2 of IV cefepime. (3) Neurogenic bladder Problem: Chronic
[2017-05-23] MEDS: MULTIVITAMINS 1 CAP CAPSULE PO SCH (08:20)
[2017-05-23] MEDS: VITAMIN B COMP W-C 1 TAB TABLET PO SCH (08:20)
[2017-05-23] MEDS: FAMOTIDINE 20 MG TABLET PO SCH (08:20)
[2017-05-23] MEDS: CHOLECALCIFEROL 1,000 UNIT CAPSULE PO SCH (08:20)
[2017-05-23] MEDS: VENLAFAXINE HCL 150 MG, VENLAFAXINE HCL 75 MG PO SCH ×2 (08:20)
[2017-05-23] MEDS: BACLOFEN 10 MG TABLET PO SCH ×3 (08:20→22:49)
[2017-05-23] MEDS: LACTOBACILLUS ACIDOPHILUS 100 CAP BTL PO SCH (08:20)
[2017-05-23] MEDS: SENNOSIDES/DOCUSATE SODIUM 1 TAB TABLET PO SCH ×2 (08:21→22:50)
[2017-05-23] MEDS: Armodafinil [Nuvigil] 200 MG PO SCH (08:21)
[2017-05-23] MEDS: NORMAL SALINE IV SCH (09:07)
[2017-05-23] MEDS: METHYLPREDNISOLONE SOD SUCC IV SCH (09:07)
[2017-05-23] MEDS: CEFEPIME HCL 1 GM in NORMAL SALINE 100 ML IV SCH ×2 (10:22→21:31)
[2017-05-23] MEDS: LORazepam 0.5 MG TABLET PO SCH (13:54)
[2017-05-23] MEDS ORDERED: METHYLPREDNISOLONE SOD SUCC IV SCH (21:00)
[2017-05-23] MEDS ORDERED: NORMAL SALINE IV SCH (21:00)
[2017-05-23] MEDS: ACETAMINOPHEN 500 MG TABLET PO SCH (22:49)
[2017-05-23] MEDS: diphenhydrAMINE HCL 25 MG CAPSULE PO SCH (22:49)
[2017-05-24 06:01] LABS: Hematocrit 39.4 % (37.0-47.0); Hemoglobin 13.4 gm/dL (12.5-16.0); Mean Cell Volume 91.2 fl (78-100); Platelet Count 309 K/mm3 (150-450); Red Blood Count 4.32 M/mm3 (4.2-5.4); Red Cell Distribution Width 14.1 % (11.5-14.0); White Blood Count 16.2 K/mm3 (4.0-10.5)
[2017-05-24 06:04] LABS: Total Cells Counted 100
[2017-05-24 06:15] LABS: Anion Gap 10.3 mmol/L (6.8-13.8); Atypical (Reactive) Lymph 9 % (0-2); BUN/Creatinine Ratio 17.6 (9.0-21.6); Band 2 % (0-2.0); Calcium * 10.9 mg/dL (7.9-10.9); Carbon Dioxide 28.8 mmol/L (24-32.6); Estimated Creat Clear 74.2; Lymphocyte 14 % (20-51); Monocyte 2 % (0-9); Neutrophil 73 % (42-75); Neutrophil # 11.8 K/mm3 (1.3-6.0); Platelet Estimate Normal (NORMAL); Potassium 4.1 mmol/L (3.4-4.6); RBC Morphology Normal (NORMAL)
[2017-05-24] MEDS: NORMAL SALINE IV SCH ×2 (06:54→17:18)
[2017-05-24] MEDS: METHYLPREDNISOLONE SOD SUCC IV SCH ×2 (06:54→17:18)
[2017-05-24] MEDS: LACTOBACILLUS ACIDOPHILUS 100 CAP BTL PO SCH (08:18)
[2017-05-24] MEDS: MULTIVITAMINS 1 CAP CAPSULE PO SCH (08:19)
[2017-05-24] MEDS: FAMOTIDINE 20 MG TABLET PO SCH (08:19)
[2017-05-24] MEDS: VENLAFAXINE HCL 150 MG, VENLAFAXINE HCL 75 MG PO SCH ×2 (08:19)
[2017-05-24] MEDS: Armodafinil [Nuvigil] 200 MG PO SCH (08:19)
[2017-05-24] MEDS: SENNOSIDES/DOCUSATE SODIUM 1 TAB TABLET PO SCH (08:19)
[2017-05-24] MEDS: VITAMIN B COMP W-C 1 TAB TABLET PO SCH (08:19)
[2017-05-24] MEDS: CHOLECALCIFEROL 1,000 UNIT CAPSULE PO SCH (08:19)
[2017-05-24] MEDS: BACLOFEN 10 MG TABLET PO SCH ×2 (08:19→13:42)
--- NOTE | 2017-05-24 08:26 | DS ---
(1) Exacerbation of multiple sclerosis Problem: Acute (2) UTI (urinary tract infection) Problem: Acute (3) Neurogenic bladder Problem: Chronic Description of Stay: Isaura moy, is a 36 years old female, who was admiited on 06/20/2016 to the hospital with reports of sudden weakness in both arms. pt stated she was unable to lift her hands or used them to navigate her cell phone. PMH significant for neurogenic bladder, multiple sclerosis, asthma, obesity and recurrent UTI. Pt stated she was seen approximately 1 month ago by neurologist Dr Garcia who discontinued her Tysebri. Her last dose of Tysebri was 04/16/17 and neurologist plan to start her on Ocrevus a new drug on the market, in a few more days. 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 Her last MRI was done at the [facility] and she had no new lesions. She was admitted and given high dose IV steriods. She was also started on IV Cefepime for pseudomonas UTI . She can be discharged today after her scheduled IV steroids is given tonight. She will get additional IV cefepime x 2 more days in the [facility]. Procedures Performed: none Discharge Disposition: Home self care Disposition: Home self-care Condition: Good Discharge Activity: Activity as tolerated Discharge Diet: General/regular food Referrals: Maverick Peoples DO [Primary Care Provider] - Additional Patient Instructions (free text): Has [facility] on going, please call and fax discharge information to them. Follow up with her PCP in 1 week. Follow up with her Neurologist as she has it scheduled. Prescriptions (Any new or edited meds): Cefepime HCl [Maxipime] 1 gm IV Q12H 2 Days #4 vial Complete Home Medications List: Complete Home Medication List: Cholecalciferol (Vitamin D3) [Vitamin D3] 2,000 unit PO DAILY 05/12/16 L.acidoph,Paracasei, B.lactis [Probiotic] 1 each PO DAILY 05/12/16 Multivitamin [One Daily Essential] 1 each PO DAILY 05/12/16 Sennosides/Docusate Sodium [Senna-Docusate Sodium Tablet] 3 each PO BID Vitamin B Comp W-C [Vitabee W/C] 1 tab PO DAILY tablet 05/23/16 Armodafinil [Nuvigil] 200 mg PO DAILY 09/30/16 Venlafaxine HCl [Effexor Xr] 225 mg PO DAILY 10/22/16 Baclofen 10 mg PO TID 02/06/17 LORazepam [Ativan] 0.5 mg PO BID 04/25/17 Acetaminophen/Diphenhydramine [Tylenol Pm Ex-Strength Caplet] 1 each PO HS 05/20 Cefepime HCl [Maxipime] 1 gm IV Q12H 2 Days #4 vial 05/24/17
[2017-05-24] MEDS: CEFEPIME HCL 1 GM in NORMAL SALINE 100 ML IV SCH (09:02)
[2017-05-24] MEDS: LORazepam 0.5 MG TABLET PO SCH (13:42)
[2017-05-24] MEDS ORDERED: CEFEPIME HCL 1 GM in DEXTROSE 5 % IN WATER 100 ML IV SCH ×4 (18:00→21:45)
[2017-05-24 18:50] VITALS: BP 130/86
--- NOTE | 2017-05-24 20:39 | OR ---
Anesthesia Procedure Note - Anesthesia Procedure Note Date of Service: 05/24/17 Narrative: Vital Signs - Last Taken Temp 36.5 C 05/24/17 18:43 Pulse 111 H 05/24/17 18:43 Resp 16 05/24/17 18:43 BP 130/86 05/24/17 18:43 Pulse Ox 98 05/24/17 18:43 O2 Oxygen Delivery Method Room Air 05/24/17 20:36 ANESTHESIA PROCEDURE NOTE Date of Procedure: 05/24/2017 Time of procedure: 2014. Performed by: DALLIN Villalpando CRNA, MSN Preprocedure diagnosis: Multiple sclerosis with acute exacerbation. Post procedure diagnosis: Same. Procedure: Venipuncture for IV access. Indications: Lack of IV access, treatment for exacerbation of multiple sclerosis. Findings: See below. Details of the procedure: After identifying an accessible vein, The patient was prepped with Betadine and alcohol, 0.1 mL of 1% lidocaine solution was injected at the intended IV site. An AP #20-gauge, was inserted into the right antecubital vein and flushed with normal saline then secured in place. EBL: Minimal. Fluids: N/A. Specimen: N/A. Post procedure condition: The patient tolerated the procedure well. No complications were noted. Thank you for this consultation. Ankur Peterson CRNA, SENIOR TRIAL ATTORNEY, MSN
== END 2017-05-24 22:21 | disposition home health service (06) | DRG 59 ==
LOC: ER 22:19 → MS 05-20 00:19
PROVIDERS: ADMIT Nurse Practitioner; ATTEND Internal Medicine
PROC: 0XH Anatomical Regions, Upper Extremities, Insertion (ICD-10-PCS; principal; 2017-05-24)
DX: N39.0 Urinary tract infection, site not specified; Z87.891 Personal history of nicotine dependence; Z87.440 Personal history of urinary (tract) infections; N31.8 Other neuromuscular dysfunction of bladder; G35 Multiple sclerosis; J45.909 Unspecified asthma, uncomplicated; B96.5 Pseudomonas (aeruginosa) (mallei) (pseudomallei) as the cause of diseases classified elsewhere

== ENCOUNTER 2017-07-17 20:36 | Emergency (ER) | payer MEDICARE, MEDICAID ==
[2017-07-17 20:51] VITALS: BP 126/94
[2017-07-17] MEDS ORDERED: CLINDAMYCIN HCL 150 MG CAPSULE PO ONE (21:13)
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
[2017-07-17] MEDS ORDERED: CLINDAMYCIN HCL 150 MG CAPSULE ONE (21:19)
== END 2017-07-17 21:26 | disposition home or self-care (01) ==
LOC: ER 20:36
DX: L02.412 Cutaneous abscess of left axilla (principal); L02.411 Cutaneous abscess of right axilla; Z87.440 Personal history of urinary (tract) infections; Z87.891 Personal history of nicotine dependence

== ENCOUNTER 2017-07-28 02:30 | Emergency (ER) | payer MEDICARE, MEDICAID ==
[2017-07-28 02:39] VITALS: BP 120/81
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
[2017-07-28] MEDS ORDERED: SULFAMETHOXAZOLE/TRIMETHOPRIM 1 TAB TABLET PO ONE (03:18)
[2017-07-28] MEDS ORDERED: SULFAMETHOXAZOLE/TRIMETHOPRIM 1 TAB TABLET ONE (03:19)
== END 2017-07-28 03:22 | disposition home or self-care (01) ==
LOC: ER 02:30
DX: L73.2 Hidradenitis suppurativa (principal); Z87.440 Personal history of urinary (tract) infections; F17.200 Nicotine dependence, unspecified, uncomplicated

== ENCOUNTER 2017-07-29 18:38 | Emergency (ER) | payer MEDICARE, MEDICAID ==
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
[2017-07-29] MEDS ORDERED: BUPIVACAINE HCL 50 ML VIAL ONE (20:51)
[2017-07-30 01:17] VITALS: BP 117/84
== END 2017-07-29 22:07 | disposition home or self-care (01) ==
LOC: ER 18:38
PROC: 0H95XZZ Drainage of Chest Skin, External Approach (ICD-10-PCS; principal; 2017-07-29)
DX: L73.2 Hidradenitis suppurativa (principal); L02.411 Cutaneous abscess of right axilla; Z87.440 Personal history of urinary (tract) infections; F17.200 Nicotine dependence, unspecified, uncomplicated

== ENCOUNTER 2018-11-08 15:58 | Inpatient (IN) ==
[2018-11-08] MEDS ORDERED: NORMAL SALINE 1,000 ML IV ONE (16:22)
[2018-11-08] MEDS ORDERED: ACETAMINOPHEN 650 MG SUPP.RECT RC ONE (16:23)
[2018-11-08 16:28] LABS: Hemoglobin 12.9 gm/dL (12.5-16.0); Mean Cell Volume 92.4 fl (78-100); Mean Corpuscular Hemoglobin 29.8 pg (27-31); Mean Corpuscular Hgb Conc 32.3 g/dl (32-36); Mean Platelet Volume 11.2 fl (8-12.5); Neutrophil # 10.7 K/mm3 (1.3-6.0); Neutrophil % 77.7 % (42-75.0); Platelet Count 358 K/mm3 (150-450); Red Blood Count 4.33 M/mm3 (4.2-5.4); Red Cell Distribution Width 15.1 % (11.5-14.0); White Blood Count 13.8 K/mm3 (4.0-10.5)
[2018-11-08 16:44] LABS: Urine Bilirubin Negative (NEGATIVE); Urine Ketone Negative (NEGATIVE); Urine Protein 15 mg/dL (NEGATIVE); Urine Urobilinogen Normal (NORMAL); Urine pH 7.5 pH (5.0-7.0)
[2018-11-08 16:48] LABS: ALT 30 U/L (19-67); AST 15 U/L (0-48); Albumin * 3.2 gm/dl (3.4-5.0); Alkaline Phosphatase * 120 U/L (50-170); Anion Gap 17.1 mmol/L (6.8-13.8); BUN/Creatinine Ratio 9.8 (9.0-21.6); Bilirubin, Total 0.2 mg/dL (0.0-1.1); Blood Urea Nitrogen 10 mg/dL (3-23); Calcium * 10.7 mg/dL (7.9-10.9); Carbon Dioxide 24.6 mmol/L (24-32.6); Chloride 101 mmol/L (97-106); Glucose * 110 mg/dL (70-110); Potassium 3.7 mmol/L (3.4-4.6); Sodium 139 mmol/L (132-142); Total Protein 8.3 gm/dL (6.2-8.2); Troponin I Less than 0.017 ng/mL (0.00-0.10)
[2018-11-08 16:53] LABS: Urine Appearance Slightly Cloudy (CLEAR); Urine Bacteria 2+; Urine Blood 5 /ul (NEGATIVE); Urine Color Yellow; Urine Nitrite Positive (NEGATIVE)
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
[2018-11-08] MEDS ORDERED: PIPERACILLIN SODIUM/TAZOBACTAM 3.375 GM in DEXTROSE 5 % IN WATER 100 ML IV ONE ×2 (16:56)
[2018-11-08] MEDS ORDERED: VANCOMYCIN HCL 1 GM in DEXTROSE 5 % IN WATER 250 ML IV ONE ×2 (16:56)
[2018-11-08 16:58] LABS: CRP 13.2 mg/dL (0.0-0.9)
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
[2018-11-08] MEDS ORDERED: ACETAMINOPHEN 325 MG TABLET PO PRN (23:22)
[2018-11-08] MEDS ORDERED: ACETAMINOPHEN 650 MG SUPP.RECT RC STA (23:42)
[2018-11-08] MEDS: BACLOFEN 10 MG TABLET PO SCH (23:56)
[2018-11-08] MEDS: NORMAL SALINE 1,000 ML IV PRN (23:56)
[2018-11-09] MEDS: PIPERACILLIN SODIUM/TAZOBACTAM 3.375 GM in DEXTROSE 5 % IN WATER 100 ML IV SCH ×6 (00:31→18:33)
[2018-11-09] MEDS ORDERED: VANCOMYCIN HCL 1.5 GM in DEXTROSE 5 % IN WATER 250 ML IV SCH ×4 (04:00→12:30)
[2018-11-09] MEDS ORDERED: ACETAMINOPHEN 650 MG SUPP.RECT RC PRN (04:12)
[2018-11-09] MEDS: BACLOFEN 10 MG TABLET PO SCH ×3 (09:32→17:38)
[2018-11-09] MEDS: NORMAL SALINE 1,000 ML IV PRN ×2 (10:13→21:04)
[2018-11-09] MEDS ORDERED: LORazepam 0.5 MG TABLET PO PRN (10:26)
[2018-11-09] MEDS ORDERED: SENNOSIDES/DOCUSATE SODIUM 1 TAB TABLET PO SCH (10:30)
[2018-11-09] MEDS: BUDESONIDE 0.5 MG/2 ML VIAL.NEB IH SCH ×2 (11:03→18:10)
[2018-11-09] MEDS ORDERED: MELATONIN 3,000 MCG TABLET PO PRN (11:40)
--- NOTE | 2018-11-09 12:10 | PN ---
Subjective - Date and Time Seen Date: 11/09/18 Time: 10:15 Subjective Narrative: She states she feels fine and thought she would go home today. No complaints. Objective - Review of Systems Generalized/Overall Review: Reports: Fever Respiratory: Denies: Shortness of Breath Cardiac: Denies: Chest Pain Abdominal: Denies: Abdominal Pain Misc: All systems neg except as marked - Vitals Vitals: Last Vital Signs Temp 36.8 C 11/09/18 10:23 Pulse 88 11/09/18 11:03 Resp 20 11/09/18 11:03 BP 108/71 11/09/18 10:23 Pulse Ox 98 11/09/18 11:03 - Abnormal Lab Findings Abnormal Lab Findings: Abnormal Lab Results 11/08/18 11/08/18 11/08/18 Range/Units 16:20 16:20 16:38 WBC 13.8 H (4.0-10.5) K/mm3 RDW 15.1 H (11.5-14.0) % Immature Gran % (Auto) 0.70 H (0.001-0.429) % Immature Gran # (Auto) 0.10 H (0.000-0.0310) K/mm3 Neutrophils % 77.7 H (42-75.0) % Lymphocytes % 13.3 L (20-51) % Neutrophils # 10.7 H (1.3-6.0) K/mm3 Monocytes # 1.1 H (0.0-1.0) k/mm3 Anion Gap 17.1 H (6.8-13.8) mmol/L Calcium Adj for Albumin 11.0 H (8.4-10.2) mg/dL C-Reactive Prot, Quant 13.2 H (0.0-0.9) mg/dL Total Protein 8.3 H (6.2-8.2) gm/dL Albumin 3.2 L (3.4-5.0) gm/dl Urine Protein 15 H (NEGATIVE) mg/dL Urine Blood 5 H (NEGATIVE) /ul Urine Nitrate Positive H (NEGATIVE) Ur Leukocyte Esterase 100 H (NEGATIVE) /ul Urine RBC 5-10 H (0-5) /hpf Urine WBC 10-25 H (0-5) /hpf Urine Bacteria 2+ H (NONE) - Exam Constitutional: Present: Alert, Oriented x3, Cooperative, Well developed, Well nourished, Obese ENT Exam: Present: hearing grossly normal Neck: Present: supple, trachea midline. Absent: lymphadenopathy (R), lymphadenopathy (L) Respiratory: Present: lungs clear, no accessory muscle use, No wheezing. Absent: crackles, rhonchi Cardiovascular/Chest: Present: normal peripheral pulses, regular rate, rhythm, no edema Abdomen: Present: Normal bowel sounds, soft, nontender Extremity: Present: no pedal edema Skin Exam: Present: normal color, cool/dry - Left foot Neurologic: Present: alert, normal mood/affect Appearance: Present: appropriate appearance, appropriate insight Eye contact: Present: cooperative, good eye contact Thoughts: Present: normal thought pattern Cauti Physician Documentation - Urinary Catheter Management Suprapubic Date of Insertion: 10/16/18 Assessment/Plan Plan Narrative: 38-year-old female with past medical history of multiple sclerosis follows with neurology in [place], recurrent UTIs with suprapubic catheter, depression, borderline personality disorder presents with complaints of altered mental status and fever for 1 day. She is accompanied by her boyfriend. He states that around 3 AM this morning she woke up with a fever, he gave Tylenol with improvement. In the morning her mentation was altered and she had increased lethargy. They called her neurologist in [place] and were told to bring her to the emergency room. She has been on a new medication for the past 2 weeks of PEGinterferon beta1A. She had been on cefuroxime for a urinary tract infection. In the emergency department CT head was performed and was negative for any acute intracranial process and chest x-ray showed no acute cardiopulmonary process. She was found to have a mild leukocytosis of 13.8 fever of 104. She was started on Vanco and Zosyn. Once her fever resolved her mentation improved and is almost near baseline. Currently she is A&O x3. Boyfriend states she is close to her normal baseline. She is being admitted for observation. - Problems/Diagnosis (1) Altered mental status, unspecified Problem: Acute Narrative: Improved but she becomes altered with fevers. (2) Fever Problem: Acute Qualifiers: Fever type: due to other condition Qualified Code(s): R50.81 - Fever presenting with conditions classified elsewhere Narrative: Intermittent resolving with Tylenol. Possibly secondary to urinary tract infection with failed outpatient treatment. (3) Multiple sclerosis, primary progressive Problem: Acute (4) Sepsis Problem: Acute Qualifiers: Sepsis type: sepsis due to unspecified organism Qualified Code(s): A41.9 - Sepsis, unspecified organism Narrative: Secondary to urinary infection with failed outpatient treatment on cefuroxime. Associated with altered mental continue with vancomycin and Zosyn. Urine cultures growing gram-negative bacilli. Awaiting blood culture results. (5) UTI (urinary tract infection) Problem: Acute Narrative: Urine culture positive for gram-negative bacilli. Continue with Zosyn.
[2018-11-09] MEDS: TIOTROPIUM BROMIDE 5 CAP INHALER IH SCH (12:12)
[2018-11-09] MEDS: DOCUSATE SODIUM 100 MG CAPSULE PO SCH ×2 (12:13→20:47)
[2018-11-09] MEDS: CYANOCOBALAMIN 1,000 MCG TABLET PO SCH (12:14)
[2018-11-09] MEDS: VITAMIN B COMP W-C 1 TAB TABLET PO SCH (12:14)
[2018-11-09] MEDS: VENLAFAXINE HCL 37.5 MG CAP.SR.24H PO SCH (12:14)
[2018-11-09] MEDS: VENLAFAXINE HCL 150 MG CAP.SR.24H PO SCH (12:15)
[2018-11-09] MEDS: LACTOBACILLUS ACIDOPHILUS 1 EACH CAPSULE PO SCH (12:15)
[2018-11-09] MEDS: SENNOSIDES/DOCUSATE SODIUM 1 TAB TABLET PO SCH (12:15)
[2018-11-09] MEDS: LORATADINE 10 MG TABLET PO SCH (12:15)
[2018-11-09] MEDS: CHOLECALCIFEROL 1,000 UNIT CAPSULE PO SCH ×2 (12:15→20:48)
[2018-11-09] MEDS: MONTELUKAST SODIUM 10 MG TABLET PO SCH (12:15)
[2018-11-09] MEDS: MULTIVITAMINS 1 CAP CAPSULE PO SCH (12:15)
[2018-11-09] MEDS: POLYETHYLENE GLYCOL 3350 17 GM PACKET PO SCH (12:16)
[2018-11-09] MEDS: FLUTICASONE PROPIONATE 120 SPRAY INHALER NS SCH (12:17)
[2018-11-09] MEDS: (Linaclotide [Linzess] 145 MCG) PO SCH (12:17)
[2018-11-09] MEDS: PSYLLIUM SEED 1 PACKET PACKET PO SCH ×2 (12:26→20:49)
[2018-11-09] MEDS: ENOXAPARIN SODIUM 40 MG/0.4 ML SYRG SC SCH (13:12)
[2018-11-09] MEDS: VANCOMYCIN HCL 1.5 GM in DEXTROSE 5 % IN WATER 500 ML IV SCH ×2 (15:04)
[2018-11-09] MEDS ORDERED: VANCOMYCIN HCL 1.5 GM in DEXTROSE 5 % IN WATER 500 ML IV SCH ×2 (16:00)
[2018-11-09] MEDS: SACCHAROMYCES BOULARDII 250 MG CAPSULE PO SCH (20:47)
[2018-11-10] MEDS: PIPERACILLIN SODIUM/TAZOBACTAM 3.375 GM in DEXTROSE 5 % IN WATER 100 ML IV SCH ×4 (00:37→08:44)
[2018-11-10] MEDS: VANCOMYCIN HCL 1.5 GM in DEXTROSE 5 % IN WATER 500 ML IV SCH ×2 (04:44)
[2018-11-10] MEDS: BUDESONIDE 0.5 MG/2 ML VIAL.NEB IH SCH (06:10)
[2018-11-10 06:19] LABS: Hematocrit 33.7 % (37.0-47.0); Hemoglobin 10.7 gm/dL (12.5-16.0); Mean Cell Volume 92.1 fl (78-100); Mean Corpuscular Hemoglobin 29.2 pg (27-31); Mean Corpuscular Hgb Conc 31.8 g/dl (32-36); Mean Platelet Volume 11.8 fl (8-12.5); Neutrophil # 4.6 K/mm3 (1.3-6.0); Neutrophil % 63.2 % (42-75.0); Platelet Count 253 K/mm3 (150-450); Red Blood Count 3.66 M/mm3 (4.2-5.4); Red Cell Distribution Width 15.1 % (11.5-14.0); White Blood Count 7.3 K/mm3 (4.0-10.5)
[2018-11-10 06:34] LABS: Albumin * 2.2 gm/dl (3.4-5.0); Anion Gap 11.8 mmol/L (6.8-13.8); Bilirubin, Total 0.3 mg/dL (0.0-1.1); Ca. Corrected For Albumin 11.6 mg/dL (8.4-10.2); Calcium * 10.5 mg/dL (7.9-10.9); Carbon Dioxide 25.8 mmol/L (24-32.6); Potassium 3.6 mmol/L (3.4-4.6); Total Protein 6.8 gm/dL (6.2-8.2)
[2018-11-10] MEDS: NORMAL SALINE 1,000 ML IV PRN (06:39)
[2018-11-10] MEDS: TIOTROPIUM BROMIDE 5 CAP INHALER IH SCH (08:50)
[2018-11-10] MEDS: FLUTICASONE PROPIONATE 120 SPRAY INHALER NS SCH (08:50)
[2018-11-10] MEDS: CHOLECALCIFEROL 1,000 UNIT CAPSULE PO SCH (08:51)
[2018-11-10] MEDS: LACTOBACILLUS ACIDOPHILUS 1 EACH CAPSULE PO SCH (08:51)
[2018-11-10] MEDS: SACCHAROMYCES BOULARDII 250 MG CAPSULE PO SCH (08:51)
[2018-11-10] MEDS: CYANOCOBALAMIN 1,000 MCG TABLET PO SCH (08:51)
[2018-11-10] MEDS: VENLAFAXINE HCL 37.5 MG CAP.SR.24H PO SCH (08:51)
[2018-11-10] MEDS: VITAMIN B COMP W-C 1 TAB TABLET PO SCH (08:51)
[2018-11-10] MEDS: SENNOSIDES/DOCUSATE SODIUM 1 TAB TABLET PO SCH (08:51)
[2018-11-10] MEDS: VENLAFAXINE HCL 150 MG CAP.SR.24H PO SCH (08:52)
[2018-11-10] MEDS: MULTIVITAMINS 1 CAP CAPSULE PO SCH (08:52)
[2018-11-10] MEDS: DOCUSATE SODIUM 100 MG CAPSULE PO SCH (08:52)
[2018-11-10] MEDS: LORATADINE 10 MG TABLET PO SCH (08:52)
[2018-11-10] MEDS: MONTELUKAST SODIUM 10 MG TABLET PO SCH (08:52)
[2018-11-10] MEDS: BACLOFEN 10 MG TABLET PO SCH ×2 (08:52→12:00)
[2018-11-10] MEDS: POLYETHYLENE GLYCOL 3350 17 GM PACKET PO SCH (08:53)
[2018-11-10] MEDS: (Linaclotide [Linzess] 145 MCG) PO SCH (08:54)
[2018-11-10] MEDS: PSYLLIUM SEED 1 PACKET PACKET PO SCH (08:54)
[2018-11-10] MEDS: ENOXAPARIN SODIUM 40 MG/0.4 ML SYRG SC SCH (11:50)
--- NOTE | 2018-11-10 12:51 | DS ---
(1) Altered mental status, unspecified Problem: Resolved (2) Fever Problem: Resolved Qualifiers: Fever type: due to other condition Qualified Code(s): R50.81 - Fever presenting with conditions classified elsewhere (3) Multiple sclerosis, primary progressive Problem: Chronic (4) Sepsis Problem: Resolved Qualifiers: Sepsis type: sepsis due to unspecified organism Qualified Code(s): A41.9 - Sepsis, unspecified organism (5) UTI (urinary tract infection) Problem: Acute Description of Stay: 38-year-old female with past medical history of multiple sclerosis follows with neurology in [place], recurrent UTIs with suprapubic catheter, depression, borderline personality disorder presents with complaints of altered mental status and fever for 1 day. She is accompanied by her boyfriend. He states that around 3 AM this morning she woke up with a fever, he gave Tylenol with improvement. In the morning her mentation was altered and she had increased lethargy. They called her neurologist in [place] and were told to bring her to the emergency room. She has been on a new medication for the past 2 weeks of PEGinterferon beta1A. She had been on cefuroxime for a urinary tract infection. In the emergency department CT head was performed and was negative for any acute intracranial process and chest x-ray showed no acute cardiopulmonary process. She was found to have a mild leukocytosis of 13.8 fever of 104. She was started on Vanco and Zosyn. Once her fever resolved her mentation improved and is almost near baseline. Currently she is A&O x3. Boyfriend states she is close to her normal baseline. She was admitted for further management. Her mentation improved and her fever resolved. Urine cultures grew Pseudomonas that was sensitive to Zosyn. She remained afebrile for 24 hours and will be sent home on ciprofloxacin 500 mg twice a day for 6 more days. Procedures Performed: none Results and Findings: Pending Mircobiology Results 11/08/18 17:40 Blood Blood Culture - Preliminary NO GROWTH 24 HOURS 11/08/18 16:20 Blood Blood Culture - Preliminary NO GROWTH 24 HOURS Lab Pending Results 11/08/18 16:20: WBC 13.8 H, RBC 4.33, Hgb 12.9, Hct 40.0, MCV 92.4, MCH 29.8, MCHC 32.3, RDW 15.1 H, Plt Count 358, MPV 11.2, Immature Gran % (Auto) 0.70 H, Immature Gran # (Auto) 0.10 H, Neutrophils % 77.7 H, Lymphocytes % 13.3 L, Monocytes % 8.1, Eosinophils % 0.0, Basophils % 0.2, Nucleated RBC % 0.0, Neutrophils # 10.7 H, Lymphocytes # 1.83, Monocytes # 1.1 H, Eosinophils # 0.0, Absolute Basophils 0.0 11/08/18 16:20: Sodium 139, Plasma Sodium 139, Potassium 3.7, Chloride 101, Carbon Dioxide 24.6, Anion Gap 17.1 H, BUN 10, Creatinine 1.02, Est GFR (Non-Af Amer) 64 D, BUN/Creatinine Ratio 9.8, Random Glucose 110, Calcium 10.7, Calcium Adj for Albumin 11.0 H, Total Bilirubin 0.2, AST 15, ALT 30, Alkaline Phosphatase 120, Troponin I Less than 0.017, C-Reactive Prot, Quant 13.2 H, Total Protein 8.3 H, Albumin 3.2 L 11/08/18 16:20: Lactic Acid, Venous 1.6 11/08/18 16:38: Urine Color Yellow, Urine Appearance Slightly cloudy, Urine pH 7.5, Ur Specific [place] 1.010, Urine Protein 15 H, Urine Glucose (UA) Negative, Urine Ketones Negative, Urine Blood 5 H, Urine Nitrate Positive H, Urine Bilirubin Negative, Prot Sulfosalicylic Acd 1+, Urine Urobilinogen Normal, Ur Leukocyte Esterase 100 H, Urine RBC 5-10 H, Urine WBC 10-25 H, Ur Epithelial Cells 0-5, Urine Bacteria 2+ H, Urine Culture Comments Culture to follow 11/10/18 05:25: Sodium 139, Plasma Sodium 139, Potassium 3.6, Chloride 105, Carbon Dioxide 25.8, Anion Gap 11.8, BUN 7, Creatinine 1.00, Est GFR (Non-Af Amer) 65, BUN/Creatinine Ratio 7.0 L, Random Glucose 112 H, Calcium 10.5, Calcium Adj for Albumin 11.6 H, Total Bilirubin 0.3, AST 62 H, ALT 46, Alkaline Phosphatase 86, Total Protein 6.8, Albumin 2.2 L 11/10/18 05:25: WBC 7.3 D, RBC 3.66 L, Hgb 10.7 L, Hct 33.7 L, MCV 92.1, MCH 29.2, MCHC 31.8 L, RDW 15.1 H, Plt Count 253, MPV 11.8, Immature Gran % (Auto) 0.50 H, Immature Gran # (Auto) 0.04 H, Neutrophils % 63.2, Lymphocytes % 25.2, Monocytes % 9.5 H, Eosinophils % 1.2, Basophils % 0.4, Nucleated RBC % 0.0, Neutrophils # 4.6, Lymphocytes # 1.85, Monocytes # 0.7, Eosinophils # 0.1, Absolute Basophils 0.0 Discharge Location: Home Disposition: Home Health Service Home Health Agency: [facility] Condition: Stable Discharge Activity: Activity as tolerated Discharge Diet: General/regular food Referrals: Yunior Cisneros DO [Primary Care Provider] - Problem Oriented Discharge Instructions to Patient/Family: Urinary Tract Infection, Adult, [id number] Additional Patient Instructions (free text): [facility] will call you with your follow-up appointment. Prescriptions (Any new or edited meds): Ciprofloxacin HCl 500 mg PO Q12H 6 Days #12 tab Complete Home Medications List: Complete Home Medication List: Cholecalciferol (Vitamin D3) [Vitamin D3] 4,000 unit PO BID 05/12/16 L.acidoph,Paracasei, B.lactis [Probiotic] 1 ea PO DAILY 05/12/16 Multivitamin [One Daily Essential] 1 ea PO DAILY 05/12/16 Sennosides/Docusate Sodium [Senna-Docusate Sodium Tablet] 1 ea PO DAILY 05/12/16 Baclofen 20 mg PO TID 02/06/17 Fluticasone Propionate [Flonase] 50 mcg NS DAILY 11/19/17 Linaclotide [Linzess] 145 mcg PO DAILY 05/10/18 Modafinil [Provigil] 100 mg PO DAILY 05/10/18 Cyanocobalamin (Vitamin B-12) [Vitamin B-12] 3,500 mcg PO DAILY 05/24/18 Polyethylene Glycol 3350 [Miralax] 17 gm PO DAILY 05/24/18 Vitamin B Complex 1 ea PO DAILY 05/24/18 lorazepam 0.5 mg tablet 0.5 mg PO BID PRN #60 tab 09/04/18 venlafaxine ER 150 mg capsule,extended release 24 hr 150 mg PO DAILY #30 cap 09/04/18 venlafaxine ER 75 mg tablet,extended release 24 hr 75 mg PO DAILY #30 tab 09/04/18 Budesonide [Pulmicort Respules] 0.5 mg INHALATION BID 09/15/18 Melatonin 10 mg PO DAILY 09/15/18 Psyllium Husk (with Sugar) [Metamucil] 1 pkt PO BID 09/15/18 Tiotropium [place] [Spiriva Respimat 2.5 mcg/inhalation] 2 puff INHALATION DAILY 09/15/18 Cetirizine HCl [Allergy Relief] 10 mg PO DAILY 11/08/18 Montelukast Sodium [Singulair] 10 mg PO DAILY 11/08/18 Peginterferon Beta-1A [Plegridy Pen] 94 mcg SQ .Q OTHER WEEK 11/08/18 Sennosides/Docusate Sodium [Senna Plus Tablet] 1 ea PO DAILY 11/08/18 Docusate Sodium [Colace] 200 mg PO BID 11/09/18 Ciprofloxacin HCl 500 mg PO Q12H 6 Days #12 tab 11/10/18
[2018-11-10] MEDS ORDERED: VANCOMYCIN HCL LEVEL XX ONE (15:30)
[2018-11-10 15:58] VITALS: BP 113/61
== END 2018-11-10 14:05 | disposition home health service (06) | DRG 700 ==
LOC: MS 15:58 → ER 15:58 → MS 19:00
PROVIDERS: ADMIT Internal Medicine; ATTEND Internal Medicine
CPT/HCPCS: 36415; 70450; 71010; 71045; 80053; 81001; 83605; 84484; 85025; 86140; 87040; 87081; 87086; 94640; 94664; 96361; 96365; 96366; 96367; 99285; G0378

== ENCOUNTER 2018-12-03 12:54 | Inpatient (IN) ==
[2018-12-03] MEDS ORDERED: ACETAMINOPHEN 650 MG SUPP.RECT RC ONE (12:56)
[2018-12-03] MEDS ORDERED: NORMAL SALINE 1,000 ML IV ONE ×5 (13:03→17:25)
--- NOTE | 2018-12-03 13:08 | ERNOTE ---
Fever HPI - Narrative Date of Service: 12/03/18 - General Stated Complaint: sick Time Seen by Provider: 12/03/18 13:01 Source: family, EMS Exam Limitations: clinical condition - Immunization Immunizations: IMMUNIZATION HX Immunizations Up to Date Yes History of Influenza Vaccine No Hx Pneumococcal Vaccination No - History of Present Illness Initial Comments: Patient had a renal stent placed yesterday for an obstructing kidney stone and today started to develop a high fever with confusion. Timing/Duration: this morning Fever Severity/Quality: greater than 102 F Fever Therapy HAMMER DRIVER: none Associated Symptoms: Present: confusion Allergies dog dander Allergy (Verified 11/08/18 19:51) glatiramer acetate [From Copaxone] Allergy (Verified 11/08/18 19:51) grass pollen Allergy (Verified 11/08/18 19:51) latex Allergy (Verified 11/08/18 19:51) hives mold Allergy (Verified 11/08/18 19:51) pollen extracts Allergy (Verified 11/08/18 19:51) tree and shrub pollen Allergy (Verified 11/08/18 19:51) bupropion HCl [From Wellbutrin] Adverse Reaction (Mild, Verified 11/08/18 19:51) tremors cat dander Adverse Reaction (Verified 11/08/18 19:51) Home Medications Medication Instructions Recorded Last Taken Cholecalciferol (Vitamin D3) 4,000 unit PO BID 05/12/16 05/10/18 [Vitamin D3] L.acidoph,Paracasei, B.lactis 1 ea PO DAILY 05/12/16 05/10/18 [Probiotic] Multivitamin [One Daily Essential] 1 ea PO DAILY 05/12/16 05/10/18 Sennosides/Docusate Sodium 1 ea PO DAILY 05/12/16 05/10/18 [Senna-Docusate Sodium Tablet] Baclofen 20 mg PO TID 02/06/17 Unknown Fluticasone Propionate [Flonase] 50 mcg NS DAILY 11/19/17 05/10/18 Linaclotide [Linzess] 145 mcg PO DAILY 05/10/18 05/10/18 Modafinil [Provigil] 100 mg PO DAILY 05/10/18 05/10/18 Cyanocobalamin (Vitamin B-12) 3,500 mcg PO DAILY 05/24/18 Unknown [Vitamin B-12] Polyethylene Glycol 3350 [Miralax] 17 gm PO DAILY 05/24/18 Unknown Vitamin B Complex 1 ea PO DAILY 05/24/18 Unknown lorazepam 0.5 mg tablet 0.5 mg PO BID PRN #60 tab 09/04/18 Unknown venlafaxine ER 150 mg 150 mg PO DAILY #30 cap 09/04/18 Unknown capsule,extended release 24 hr venlafaxine ER 75 mg 75 mg PO DAILY #30 tab 09/04/18 Unknown tablet,extended release 24 hr Budesonide [Pulmicort Respules] 0.5 mg INHALATION BID 09/15/18 Unknown Melatonin 10 mg PO DAILY 09/15/18 Unknown Psyllium Husk (with Sugar) 1 pkt PO BID 09/15/18 Unknown [Metamucil] Tiotropium [place] [Spiriva 2 puff INHALATION DAILY 09/15/18 Unknown Respimat 2.5 mcg/inhalation] Cetirizine HCl [Allergy Relief] 10 mg PO DAILY 11/08/18 Unknown Montelukast Sodium [Singulair] 10 mg PO DAILY 11/08/18 Unknown Peginterferon Beta-1A [Plegridy 94 mcg SQ .Q OTHER WEEK 11/08/18 11/06/18 20:00 Pen] Sennosides/Docusate Sodium [Senna 1 ea PO DAILY 11/08/18 Unknown Plus Tablet] Docusate Sodium [Colace] 200 mg PO BID 11/09/18 Unknown Review of Systems - Review of Systems Constitutional: Present: fever Cardiology: Present: palpitations Neurological: Present: other - Confusion, poorly responsive All Other Systems: All systems neg except as marked - Unable to obtain a full review of systems because the patient's altered mental status Fever EXAM - Physical Exam General Appearance: Present: lethargic, severe distress ENT Exam: Present: normal ENT inspection Neck: Present: other - Unable to perform because of the confusion Respiratory: Present: other - Tachypneic Cardiovascular/Chest: Present: tachycardia Gastrointestinal/Abdominal: Present: normal bowel sounds Neurologic: Present: disoriented x 3 Lymphatic: Present: no adenopathy - Unclear whether the fever is the source of the confusion or whether she could possibly be septic, we certainly have to consider urosepsis given the recent procedure done at [facility] in [place] ED Progress - VITAL SIGNS Patient's Vital Signs:: I have reviewed the patient's vital signs. - RESULTS AND ORDERS Patient's Lab Results:: I have reviewed the patient's lab results. - X-Ray X-Ray #1 XRAY: chest X-Ray Interpretation: Reviewed by me - TRANSFER OF CARE Expected Disposition: Admit Departure - Departure Clinical Impression: Sepsis Qualifiers: Sepsis type: sepsis due to unspecified organism Qualified Code(s): A41.9 - Sepsis, unspecified organism UTI (urinary tract infection) Qualifiers: Urinary tract infection type: catheter-associated UTI Indwelling urinary catheter type: indwelling urethral catheter Encounter type: sequela Qualified Code(s): T83.511S - Infection and inflammatory reaction due to indwelling urethral catheter, sequela Disposition: Still a patient Condition: Critical Critical Care Note - Critical Care Note Total Time (mins): 85 Comments: Patient required multiple critical interventions into her care. Including 3 L of normal saline to help stabilize the blood pressure, icing as well as convection cooling with water with rectal Tylenol, oral ibuprofen and IV Ofirmev to get a handle on her severe hyperthermia. She was also started on Zosyn and vancomycin for the sepsis. Patient will be admitted to the ICU in critical condition.
[2018-12-03 13:16] LABS: Hematocrit 40.2 % (37.0-47.0); Hemoglobin 12.8 gm/dL (12.5-16.0); Mean Cell Volume 93.5 fl (78-100); Mean Corpuscular Hemoglobin 29.8 pg (27-31); Mean Corpuscular Hgb Conc 31.8 g/dl (32-36); Mean Platelet Volume 11.2 fl (8-12.5); Neutrophil # 12.7 K/mm3 (1.3-6.0); Neutrophil % 86.6 % (42-75.0); Platelet Count 236 K/mm3 (150-450); Red Cell Distribution Width 17.4 % (11.5-14.0); White Blood Count 14.7 K/mm3 (4.0-10.5)
[2018-12-03] MEDS ORDERED: PIPERACILLIN SODIUM/TAZOBACTAM 3.375 GM in DEXTROSE 5 % IN WATER 100 ML IV ONE ×2 (13:26)
[2018-12-03 13:30] LABS: Albumin * 2.9 gm/dl (3.4-5.0); BUN/Creatinine Ratio 7.6 (9.0-21.6); Bilirubin, Total 0.4 mg/dL (0.0-1.1); Ca. Corrected For Albumin 10.8 mg/dL (8.4-10.2); Calcium * 10.2 mg/dL (7.9-10.9); Carbon Dioxide 24.6 mmol/L (24-32.6); Magnesium 1.5 mg/dL (1.2-2.8); Potassium 3.6 mmol/L (3.4-4.6); Total Protein 7.3 gm/dL (6.2-8.2)
[2018-12-03 13:34] LABS: Urine Bilirubin Negative (NEGATIVE); Urine Blood 250 /ul (NEGATIVE); Urine Ketone Negative (NEGATIVE); Urine Nitrite Negative (NEGATIVE); Urine Protein 100 mg/dL (NEGATIVE); Urine Urobilinogen Normal (NORMAL); Urine pH 7.5 pH (5.0-7.0)
[2018-12-03 13:45] LABS: CRP 16.8 mg/dL (0.0-0.9); Urine Appearance Cloudy (CLEAR); Urine Bacteria 1+; Urine Color Yellow; Urine RBC >50 /hpf (0-5); Urine WBC >50 /hpf (0-5)
[2018-12-03] MEDS ORDERED: VANCOMYCIN HCL 1 GM in DEXTROSE 5 % IN WATER 250 ML IV ONE ×2 (13:47)
[2018-12-03] MEDS ORDERED: IBUPROFEN 400 MG TABLET PO ONE (14:08)
[2018-12-03] MEDS ORDERED: ACETAMINOPHEN 1,000 MG/100 ML BTL IV ONE (14:51)
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
[2018-12-03] MEDS ORDERED: NOREPINEPHRINE BITARTRATE 4 MG in DEXTROSE 5 % IN WATER 496 ML IV PRN ×2 (18:13)
[2018-12-03] MEDS: NORMAL SALINE 1,000 ML IV PRN (18:27)
[2018-12-03] MEDS: PIPERACILLIN SODIUM/TAZOBACTAM 3.375 GM in DEXTROSE 5 % IN WATER 100 ML IV SCH ×2 (22:15)
[2018-12-04] MEDS: NORMAL SALINE 1,000 ML IV PRN (02:13)
[2018-12-04] MEDS: NORMAL SALINE IV SCH ×2 (02:20→13:44)
[2018-12-04] MEDS: VANCOMYCIN HCL IV SCH ×2 (02:20→13:44)
[2018-12-04] MEDS ORDERED: VANCOMYCIN HCL 1 GM in DEXTROSE 5 % IN WATER 250 ML IV SCH ×2 (04:00)
[2018-12-04] MEDS: ACETAMINOPHEN 650 MG SUPP.RECT RC PRN ×3 (04:49→18:29)
[2018-12-04] MEDS: PIPERACILLIN SODIUM/TAZOBACTAM 3.375 GM in DEXTROSE 5 % IN WATER 100 ML IV SCH ×6 (05:42→21:27)
[2018-12-04 05:50] LABS: Hematocrit 33.5 % (37.0-47.0); Hemoglobin 10.6 gm/dL (12.5-16.0); Mean Cell Volume 93.3 fl (78-100); Mean Corpuscular Hemoglobin 29.5 pg (27-31); Mean Corpuscular Hgb Conc 31.6 g/dl (32-36); Mean Platelet Volume 11.3 fl (8-12.5); Neutrophil # 8.1 K/mm3 (1.3-6.0); Neutrophil % 83.6 % (42-75.0); Platelet Count 193 K/mm3 (150-450); Red Blood Count 3.59 M/mm3 (4.2-5.4); Red Cell Distribution Width 17.2 % (11.5-14.0); White Blood Count 9.6 K/mm3 (4.0-10.5)
[2018-12-04 05:51] LABS: Albumin * 2.2 gm/dl (3.4-5.0); Anion Gap 13.7 mmol/L (6.8-13.8); BUN/Creatinine Ratio 6.7 (9.0-21.6); Bilirubin, Total 0.4 mg/dL (0.0-1.1); Ca. Corrected For Albumin 9.9 mg/dL (8.4-10.2); Calcium * 8.8 mg/dL (7.9-10.9); Carbon Dioxide 19.4 mmol/L (24-32.6); Potassium 3.1 mmol/L (3.4-4.6); Total Protein 6.1 gm/dL (6.2-8.2)
[2018-12-04] MEDS ORDERED: POTASSIUM BICARBONATE/CIT AC 25 MEQ TABLET.EFF PO ONE (08:59)
[2018-12-04] MEDS: ENOXAPARIN SODIUM 40 MG/0.4 ML SYRG SC SCH (09:15)
[2018-12-04] MEDS ORDERED: LORazepam 0.5 MG TABLET PO PRN (09:41)
[2018-12-04] MEDS ORDERED: CYANOCOBALAMIN PO SCH (09:45)
[2018-12-04] MEDS ORDERED: FLUTICASONE PROPIONATE 120 SPRAY INHALER NS SCH (09:45)
[2018-12-04] MEDS: ALBUTEROL SULFATE 2.5 MG/0.5 ML VIAL.NEB IH PRN ×2 (10:31→18:17)
[2018-12-04] MEDS ORDERED: CYANOCOBALAMIN 1,000 MCG TABLET PO SCH ×2 (11:00)
[2018-12-04] MEDS: BUDESONIDE 0.5 MG/2 ML VIAL.NEB IH SCH ×2 (11:00→18:17)
--- NOTE | 2018-12-04 11:13 | PN ---
Subjective - Date and Time Seen Date: 12/04/18 Time: 09:15 Subjective Narrative: She states she feels well. She is alert and oriented x3. Denies pain or shortness of breath. Objective - Review of Systems Generalized/Overall Review: Reports: Chills, Fever EENTM: Denies: Eye Pain, Ear Pain Respiratory: Denies: Shortness of Breath Cardiac: Denies: Chest Pain Abdominal: Denies: Abdominal Pain Misc: All systems neg except as marked - Vitals Vitals: Last Vital Signs Temp 37.1 C 12/04/18 10:02 Pulse 106 H 12/04/18 10:02 Resp 16 12/04/18 10:02 BP 118/74 12/04/18 10:02 Pulse Ox 99 12/04/18 10:02 - Abnormal Lab Findings Abnormal Lab Findings: Abnormal Lab Results 12/03/18 12/03/18 12/03/18 Range/Units 13:05 13:05 13:05 WBC 14.7 H (4.0-10.5) K/mm3 RBC (4.2-5.4) M/mm3 Hgb (12.5-16.0) gm/dL Hct (37.0-47.0) % MCHC 31.8 L (32-36) g/dl RDW 17.4 H (11.5-14.0) % Immature Gran % (Auto) 0.60 H (0.001-0.429) % Immature Gran # (Auto) 0.09 H (0.000-0.0310) K/mm3 Neutrophils % 86.6 H (42-75.0) % Lymphocytes % 5.5 L (20-51) % Neutrophils # 12.7 H (1.3-6.0) K/mm3 Lymphocytes # 0.81 L (1.5-3.5) k/mm3 pCO2 (32.0-45.0) mmHg pO2 (83.0-108.0) mmHg HCO3 (21.0-28.0) mmol/L Total CO2 (19.0-24.0) mmol/L Base Excess (-2.0-3.0) mmol/L ABG pH (7.35-7.45) Potassium (3.4-4.6) mmol/L Chloride (97-106) mmol/L Carbon Dioxide (24-32.6) mmol/L Anion Gap 15.0 H (6.8-13.8) mmol/L BUN/Creatinine Ratio 7.6 L (9.0-21.6) Random Glucose 112 H (70-110) mg/dL Calcium Adj for Albumin 10.8 H (8.4-10.2) mg/dL C-Reactive Prot, Quant 16.8 H (0.0-0.9) mg/dL Total Protein (6.2-8.2) gm/dL Albumin 2.9 L (3.4-5.0) gm/dl Procalcitonin 1.24 H (0.05-0.50) ng/mL Urine Protein (NEGATIVE) mg/dL Urine Blood (NEGATIVE) /ul Prot Sulfosalicylic Acd (0) mg/dL Ur Leukocyte Esterase (NEGATIVE) /ul Urine RBC (0-5) /hpf Urine WBC (0-5) /hpf Urine Bacteria (NONE) 12/03/18 12/03/18 12/04/18 Range/Units 13:05 13:18 05:35 WBC (4.0-10.5) K/mm3 RBC 3.59 L (4.2-5.4) M/mm3 Hgb 10.6 L (12.5-16.0) gm/dL Hct 33.5 L (37.0-47.0) % MCHC 31.6 L (32-36) g/dl RDW 17.2 H (11.5-14.0) % Immature Gran % (Auto) 0.90 H (0.001-0.429) % Immature Gran # (Auto) 0.09 H (0.000-0.0310) K/mm3 Neutrophils % 83.6 H (42-75.0) % Lymphocytes % 7.1 L (20-51) % Neutrophils # 8.1 H (1.3-6.0) K/mm3 Lymphocytes # 0.68 L (1.5-3.5) k/mm3 pCO2 23.8 L (32.0-45.0) mmHg pO2 79.4 L (83.0-108.0) mmHg HCO3 17.5 L (21.0-28.0) mmol/L Total CO2 18.2 L (19.0-24.0) mmol/L Base Excess -4.5 L (-2.0-3.0) mmol/L ABG pH 7.48 H (7.35-7.45) Potassium (3.4-4.6) mmol/L Chloride (97-106) mmol/L Carbon Dioxide (24-32.6) mmol/L Anion Gap (6.8-13.8) mmol/L BUN/Creatinine Ratio (9.0-21.6) Random Glucose (70-110) mg/dL Calcium Adj for Albumin (8.4-10.2) mg/dL C-Reactive Prot, Quant (0.0-0.9) mg/dL Total Protein (6.2-8.2) gm/dL Albumin (3.4-5.0) gm/dl Procalcitonin (0.05-0.50) ng/mL Urine Protein 100 H (NEGATIVE) mg/dL Urine Blood 250 H (NEGATIVE) /ul Prot Sulfosalicylic Acd 4+ H (0) mg/dL Ur Leukocyte Esterase 100 H (NEGATIVE) /ul Urine RBC >50 H (0-5) /hpf Urine WBC >50 H (0-5) /hpf Urine Bacteria 1+ H (NONE) 12/04/18 Range/Units 05:35 WBC (4.0-10.5) K/mm3 RBC (4.2-5.4) M/mm3 Hgb (12.5-16.0) gm/dL Hct (37.0-47.0) % MCHC (32-36) g/dl RDW (11.5-14.0) % Immature Gran % (Auto) (0.001-0.429) % Immature Gran # (Auto) (0.000-0.0310) K/mm3 Neutrophils % (42-75.0) % Lymphocytes % (20-51) % Neutrophils # (1.3-6.0) K/mm3 Lymphocytes # (1.5-3.5) k/mm3 pCO2 (32.0-45.0) mmHg pO2 (83.0-108.0) mmHg HCO3 (21.0-28.0) mmol/L Total CO2 (19.0-24.0) mmol/L Base Excess (-2.0-3.0) mmol/L ABG pH (7.35-7.45) Potassium 3.1 L (3.4-4.6) mmol/L Chloride 107 H (97-106) mmol/L Carbon Dioxide 19.4 L (24-32.6) mmol/L Anion Gap (6.8-13.8) mmol/L BUN/Creatinine Ratio 6.7 L (9.0-21.6) Random Glucose 144 H (70-110) mg/dL Calcium Adj for Albumin (8.4-10.2) mg/dL C-Reactive Prot, Quant (0.0-0.9) mg/dL Total Protein 6.1 L (6.2-8.2) gm/dL Albumin 2.2 L (3.4-5.0) gm/dl Procalcitonin (0.05-0.50) ng/mL Urine Protein (NEGATIVE) mg/dL Urine Blood (NEGATIVE) /ul Prot Sulfosalicylic Acd (0) mg/dL Ur Leukocyte Esterase (NEGATIVE) /ul Urine RBC (0-5) /hpf Urine WBC (0-5) /hpf Urine Bacteria (NONE) - Exam Constitutional: Present: Alert, Oriented x3, Cooperative, Well developed, Well nourished, No distress ENT Exam: Present: hearing grossly normal Neck: Present: non-tender, trachea midline. Absent: lymphadenopathy (R), lymphadenopathy (L) Respiratory: Present: lungs clear, no respiratory distress, no accessory muscle use, No wheezing. Absent: crackles, rhonchi Cardiovascular/Chest: Present: normal peripheral pulses, regular rate, rhythm, no edema, no murmur Abdomen: Present: Normal bowel sounds, soft, nontender, other - Suprapubic catheter in place, no signs of infection Extremity: Present: no pedal edema Skin Exam: Present: normal color, warm/dry Neurologic: Present: alert, normal mood/affect Appearance: Present: appropriate appearance, appropriate insight Eye contact: Present: cooperative, good eye contact Thoughts: Present: normal thought pattern, normal mood /affect Assessment/Plan Plan Narrative: 38-year-old female who past medical history of multiple sclerosis, MRSA, re current UTIs, suprapubic catheter, borderline personality disorder, major depression presents from home with complaints of altered mental status and fever. Per her significant other she had a urologic procedure performed yesterday with a stent placed in order to remove a right-sided kidney stone. She was sent home after the procedure. He found her with altered mentation earlier this morning and fever. She was found to have SIRS and admitted to SCU. She later developed hypotension that was not responsive to IV fluid. She was started on norepinephrine with good response. She has been titrated off of the norepinephrine this morning and is maintaining her blood pressure. Urine cultures are now growing any bacteria. Etiology of the fevers is unclear. Continue with Zosyn but discontinue Vanco - Problems/Diagnosis (1) Multiple sclerosis Problem: Chronic Narrative: Resume home medications. (2) Altered mental status, unspecified Problem: Resolved Narrative: Improved likely secondary to fever. She was ANO x3 this morning. (3) Fever Problem: Acute Qualifiers: Narrative: She continues to have fevers today and mentation changes when she is febrile. Continue with Tylenol as needed. Per discussion with urologist at [facility] Dr. Medel (Dr. Gonzalez's partner), he recommends con't with broad spectrum antibiotic treatment as long as she is responding clinically. He says she was likely treated with ancef prior to her stent placement which may inhibit the growth on urine culture. (4) Suprapubic catheter Problem: Chronic Narrative: Stable (5) UTI (urinary tract infection) Problem: Ruled-out Qualifiers: Urinary tract infection type: catheter-associated UTI Indwelling urinary catheter type: indwelling urethral catheter Encounter type: sequela Qualified Code(s): T83.511S - Infection and inflammatory reaction due to indwelling urethral catheter, sequela; N39.0 - Urinary tract infection, site not specified Narrative: Urine culture has no growth as of today. Etiology of the fevers and leukocytosis remains unclear. Continue with Zosyn for now. Discontinue vancomycin. Per discussion with urologist at [facility] Dr. Medel (Dr. Gonzalez's partner), he recommends con't with broad spectrum antibiotic treatment as long as she is responding clinically. He says she was likely treated with ancef prior to her stent placement which may inhibit the growth on urine culture. He recommends continuing with treatment even if nothing grows on culture. (6) SIRS (systemic inflammatory response syndrome) Problem: Acute Narrative: Overnight she developed hypotension and was not fluid responsive. She was started on norepinephrine with good response. She has been titrated off of the norepinephrine and is maintaining her blood pressures. Continue with Zosyn for now unclear what the source of the fevers is. Chest x-ray is negative and urine cultures negative. Awaiting results of blood cultures. (7) Hypotension Problem: Resolved Narrative: She developed hypotension once she was transferred to the SCU. She was not responsive to IV fluid bolus and was started on norepinephrine with good response. She was titrated off norepinephrine this morning and is maintaining her blood pressures. We will likely transition her out of the SCU today.
[2018-12-04] MEDS ORDERED: MELATONIN 3,000 MCG TABLET PO PRN (11:56)
[2018-12-04] MEDS: VENLAFAXINE HCL 150 MG CAP.SR.24H PO SCH (12:07)
[2018-12-04] MEDS: CYANOCOBALAMIN 1,000 MCG TABLET PO SCH (12:07)
[2018-12-04] MEDS: VENLAFAXINE HCL 37.5 MG CAP.SR.24H PO SCH (12:07)
[2018-12-04] MEDS: LACTOBACILLUS ACIDOPHILUS 1 EACH CAPSULE PO SCH (12:07)
[2018-12-04] MEDS: CHOLECALCIFEROL 1,000 UNIT CAPSULE PO SCH ×2 (12:07→21:27)
[2018-12-04] MEDS: MULTIVITAMINS 1 CAP CAPSULE PO SCH (12:08)
[2018-12-04] MEDS: MONTELUKAST SODIUM 10 MG TABLET PO SCH (12:08)
[2018-12-04] MEDS: LORATADINE 10 MG TABLET PO SCH (12:08)
[2018-12-04] MEDS: DOCUSATE SODIUM 100 MG CAPSULE PO SCH ×2 (12:08→21:29)
[2018-12-04] MEDS: SENNOSIDES/DOCUSATE SODIUM 1 TAB TABLET PO SCH (12:08)
[2018-12-04] MEDS: VITAMIN B COMP W-C 1 TAB TABLET PO SCH (12:08)
[2018-12-04] MEDS: MODAFINIL 100 MG PO SCH (12:09)
[2018-12-04] MEDS: Linaclotide [Linzess] 145 MCG PO SCH (12:09)
[2018-12-04] MEDS: TIOTROPIUM BROMIDE 5 CAP INHALER IH SCH (12:09)
[2018-12-04] MEDS: POLYETHYLENE GLYCOL 3350 17 GM PACKET PO SCH (12:35)
[2018-12-04] MEDS: PSYLLIUM SEED 1 PACKET PACKET PO SCH ×2 (12:35→21:27)
[2018-12-04] MEDS: BACLOFEN 10 MG TABLET PO SCH ×2 (14:14→16:08)
[2018-12-04] MEDS ORDERED: SENNOSIDES/DOCUSATE SODIUM 1 TAB TABLET PO SCH (21:00)
[2018-12-05] MEDS: ACETAMINOPHEN 650 MG SUPP.RECT RC PRN (04:04)
[2018-12-05 05:41] LABS: Hematocrit 31.2 % (37.0-47.0); Mean Corpuscular Hemoglobin 29.5 pg (27-31); Mean Corpuscular Hgb Conc 32.1 g/dl (32-36); Mean Platelet Volume 11.2 fl (8-12.5); Platelet Count 171 K/mm3 (150-450); Red Blood Count 3.39 M/mm3 (4.2-5.4); Red Cell Distribution Width 17.2 % (11.5-14.0)
[2018-12-05] MEDS: PIPERACILLIN SODIUM/TAZOBACTAM 3.375 GM in DEXTROSE 5 % IN WATER 100 ML IV SCH ×6 (05:44→22:38)
[2018-12-05 05:45] LABS: Total Cells Counted 100
[2018-12-05 05:59] LABS: Albumin * 2.2 gm/dl (3.4-5.0); Anion Gap 13.8 mmol/L (6.8-13.8); BUN/Creatinine Ratio 5.1 (9.0-21.6); Bilirubin, Total 0.3 mg/dL (0.0-1.1); Calcium * 9.9 mg/dL (7.9-10.9); Carbon Dioxide 21.5 mmol/L (24-32.6); Potassium 3.3 mmol/L (3.4-4.6); Total Protein 6.2 gm/dL (6.2-8.2)
[2018-12-05] MEDS: BUDESONIDE 0.5 MG/2 ML VIAL.NEB IH SCH ×3 (06:00→18:05)
[2018-12-05] MEDS: ALBUTEROL SULFATE 2.5 MG/0.5 ML VIAL.NEB IH PRN (06:03)
[2018-12-05 06:06] LABS: Band 1 % (0-2.0); Basophil 1 % (0-1); Eosinophil 2 % (0-3); Lymphocyte 31 % (20-51); Monocyte 2 % (0-9); Neutrophil 63 % (42-75); Neutrophil # 3.8 K/mm3 (1.3-6.0); Platelet Estimate Normal (NORMAL)
[2018-12-05 06:07] LABS: RBC Morphology Normal (NORMAL)
[2018-12-05] MEDS: TIOTROPIUM BROMIDE 5 CAP INHALER IH SCH (09:02)
[2018-12-05] MEDS: POLYETHYLENE GLYCOL 3350 17 GM PACKET PO SCH (09:04)
[2018-12-05] MEDS: CHOLECALCIFEROL 1,000 UNIT CAPSULE PO SCH ×2 (09:04→22:40)
[2018-12-05] MEDS: PSYLLIUM SEED 1 PACKET PACKET PO SCH ×2 (09:05→20:18)
[2018-12-05] MEDS: BACLOFEN 10 MG TABLET PO SCH ×3 (09:06→17:40)
[2018-12-05] MEDS: VENLAFAXINE HCL 37.5 MG CAP.SR.24H PO SCH (09:06)
[2018-12-05] MEDS: LACTOBACILLUS ACIDOPHILUS 1 EACH CAPSULE PO SCH (09:07)
[2018-12-05] MEDS: DOCUSATE SODIUM 100 MG CAPSULE PO SCH ×2 (09:07→20:18)
[2018-12-05] MEDS: SENNOSIDES/DOCUSATE SODIUM 1 TAB TABLET PO SCH (09:07)
[2018-12-05] MEDS: MONTELUKAST SODIUM 10 MG TABLET PO SCH (09:07)
[2018-12-05] MEDS: MULTIVITAMINS 1 CAP CAPSULE PO SCH (09:07)
[2018-12-05] MEDS: LORATADINE 10 MG TABLET PO SCH (09:07)
[2018-12-05] MEDS: CYANOCOBALAMIN 1,000 MCG TABLET PO SCH (09:07)
[2018-12-05] MEDS: VITAMIN B COMP W-C 1 TAB TABLET PO SCH (09:08)
[2018-12-05] MEDS: VENLAFAXINE HCL 150 MG CAP.SR.24H PO SCH (09:08)
[2018-12-05] MEDS: MODAFINIL 100 MG PO SCH (09:09)
[2018-12-05] MEDS: Linaclotide [Linzess] 145 MCG PO SCH (09:09)
[2018-12-05] MEDS: ENOXAPARIN SODIUM 40 MG/0.4 ML SYRG SC SCH (09:09)
[2018-12-05] MEDS: FLUTICASONE PROPIONATE 120 SPRAY INHALER NS SCH (09:10)
[2018-12-05] MEDS ORDERED: POTASSIUM BICARBONATE/CIT AC 25 MEQ TABLET.EFF PO ONE (10:39)
--- NOTE | 2018-12-05 10:52 | PN ---
Subjective - Date and Time Seen Date: 12/05/18 Time: 10:15 Subjective Narrative: She states she feels well and has no complaints. Objective - Review of Systems Generalized/Overall Review: Reports: Fever Respiratory: Denies: Shortness of Breath Cardiac: Denies: Chest Pain Abdominal: Denies: Abdominal Pain Misc: All systems neg except as marked - Vitals Vitals: Last Vital Signs Temp 37.1 C 12/05/18 07:00 Pulse 84 12/05/18 07:00 Resp 16 12/05/18 07:00 BP 109/63 12/05/18 07:00 Pulse Ox 96 12/05/18 07:00 - Abnormal Lab Findings Abnormal Lab Findings: Abnormal Lab Results 12/05/18 12/05/18 Range/Units 05:37 05:37 RBC 3.39 L (4.2-5.4) M/mm3 Hgb 10.0 L (12.5-16.0) gm/dL Hct 31.2 L (37.0-47.0) % RDW 17.2 H (11.5-14.0) % Potassium 3.3 L (3.4-4.6) mmol/L Chloride 107 H (97-106) mmol/L Carbon Dioxide 21.5 L (24-32.6) mmol/L BUN/Creatinine Ratio 5.1 L (9.0-21.6) Random Glucose 119 H (70-110) mg/dL Calcium Adj for Albumin 11.0 H (8.4-10.2) mg/dL Albumin 2.2 L (3.4-5.0) gm/dl - Exam Constitutional: Present: Alert, Oriented x3, Cooperative, Well developed, Well nourished, No distress ENT Exam: Present: hearing grossly normal Neck: Present: non-tender, trachea midline. Absent: lymphadenopathy (R), lymphadenopathy (L) Cardiovascular/Chest: Present: normal peripheral pulses, regular rate, rhythm, no edema, no murmur Abdomen: Present: Normal bowel sounds, soft, nontender /Rectal: Present: Other - Suprapubic catheter in place, no signs of infection Extremity: Present: non-tender, no pedal edema Skin Exam: Present: normal color, warm/dry Neurologic: Present: alert, normal mood/affect - Right, oriented x 3 Appearance: Present: appropriate appearance, appropriate insight Eye contact: Present: cooperative, good eye contact Thoughts: Present: normal thought pattern, normal mood /affect Assessment/Plan Plan Narrative: 38-year-old female who past medical history of multiple sclerosis, MRSA, recurrent UTIs, suprapubic catheter, borderline personality disorder, major depression presents from home with complaints of altered mental status and fever. Per her significant other she had a urologic procedure performed yesterday with a stent placed in order to remove a right-sided kidney stone. She was sent home after the procedure. He found her with altered mentation earlier this morning and fever. She was found to have SIRS and admitted to SCU. She later developed hypotension that was not responsive to IV fluid. She was started on norepinephrine with good response. She has been titrated off of the norepinephrine this morning and is maintaining her blood pressure. Urine cultures are now growing an organism. Etiology of the fevers is likely from a UTI. Continue with Zosyn day 3. Follow-up urine culture and sensitivity. - Problems/Diagnosis (1) Multiple sclerosis Problem: Chronic (2) Altered mental status, unspecified Problem: Acute Narrative: Mostly resolved however when she has a fever spike her mentation changes and she becomes somewhat confused. (3) Fever Problem: Acute Qualifiers: Narrative: She still had fever spikes last night. Awaiting urine culture and sensitivity, continue with Zosyn. (4) Suprapubic catheter Problem: Chronic (5) UTI (urinary tract infection) Problem: Acute Qualifiers: Urinary tract infection type: catheter-associated UTI Indwelling urinary catheter type: indwelling urethral catheter Encounter type: sequela Qualified Code(s): T83.511S - Infection and inflammatory reaction due to indwelling urethral catheter, sequela; N39.0 - Urinary tract infection, site not specified Narrative: Continue with Zosyn day 3, awaiting urine cultures and sensitivity. (6) SIRS (systemic inflammatory response syndrome) Problem: Resolved (7) Hypotension Problem: Resolved (8) Hypokalemia Problem: Acute Narrative: Replete as needed.
[2018-12-05] MEDS: FLUCONAZOLE 200 MG TABLET PO SCH (17:41)
[2018-12-05] MEDS ORDERED: ACETAMINOPHEN 325 MG TABLET PO PRN (22:59)
[2018-12-05] MEDS ORDERED: ACETAMINOPHEN 325 MG TABLET ONE (23:03)
[2018-12-06] MEDS: PIPERACILLIN SODIUM/TAZOBACTAM 3.375 GM in DEXTROSE 5 % IN WATER 100 ML IV SCH ×2 (05:32)
[2018-12-06 05:39] LABS: Hematocrit 36.3 % (37.0-47.0); Hemoglobin 11.5 gm/dL (12.5-16.0); Mean Cell Volume 93.8 fl (78-100); Mean Corpuscular Hemoglobin 29.7 pg (27-31); Mean Corpuscular Hgb Conc 31.7 g/dl (32-36); Mean Platelet Volume 11.7 fl (8-12.5); Neutrophil # 2.2 K/mm3 (1.3-6.0); Neutrophil % 44.3 % (42-75.0); Platelet Count 244 K/mm3 (150-450); Red Blood Count 3.87 M/mm3 (4.2-5.4); Red Cell Distribution Width 17.2 % (11.5-14.0)
[2018-12-06 05:49] LABS: Albumin * 2.6 gm/dl (3.4-5.0); Anion Gap 8.9 mmol/L (6.8-13.8); BUN/Creatinine Ratio 6.7 (9.0-21.6); Bilirubin, Total 0.4 mg/dL (0.0-1.1); Ca. Corrected For Albumin 11.5 mg/dL (8.4-10.2); Calcium * 10.7 mg/dL (7.9-10.9); Carbon Dioxide 30.1 mmol/L (24-32.6); Total Protein 7.5 gm/dL (6.2-8.2)
[2018-12-06] MEDS: BUDESONIDE 0.5 MG/2 ML VIAL.NEB IH SCH (06:00)
[2018-12-06] MEDS: ALBUTEROL SULFATE 2.5 MG/0.5 ML VIAL.NEB IH PRN (06:01)
[2018-12-06] MEDS: TIOTROPIUM BROMIDE 5 CAP INHALER IH SCH (09:21)
[2018-12-06] MEDS: CHOLECALCIFEROL 1,000 UNIT CAPSULE PO SCH (09:22)
[2018-12-06] MEDS: LORATADINE 10 MG TABLET PO SCH (09:22)
[2018-12-06] MEDS: CYANOCOBALAMIN 1,000 MCG TABLET PO SCH (09:22)
[2018-12-06] MEDS: FLUCONAZOLE 200 MG TABLET PO SCH (09:22)
[2018-12-06] MEDS: SENNOSIDES/DOCUSATE SODIUM 1 TAB TABLET PO SCH (09:22)
[2018-12-06] MEDS: VENLAFAXINE HCL 37.5 MG CAP.SR.24H PO SCH (09:22)
[2018-12-06] MEDS: VITAMIN B COMP W-C 1 TAB TABLET PO SCH (09:23)
[2018-12-06] MEDS: VENLAFAXINE HCL 150 MG CAP.SR.24H PO SCH (09:23)
[2018-12-06] MEDS: MULTIVITAMINS 1 CAP CAPSULE PO SCH (09:23)
[2018-12-06] MEDS: LACTOBACILLUS ACIDOPHILUS 1 EACH CAPSULE PO SCH (09:23)
[2018-12-06] MEDS: BACLOFEN 10 MG TABLET PO SCH (09:23)
[2018-12-06] MEDS: MONTELUKAST SODIUM 10 MG TABLET PO SCH (09:23)
[2018-12-06] MEDS: DOCUSATE SODIUM 100 MG CAPSULE PO SCH (09:23)
[2018-12-06] MEDS: FLUTICASONE PROPIONATE 120 SPRAY INHALER NS SCH (09:24)
[2018-12-06] MEDS: MODAFINIL 100 MG PO SCH (09:24)
[2018-12-06] MEDS: Linaclotide [Linzess] 145 MCG PO SCH (09:24)
[2018-12-06] MEDS: ENOXAPARIN SODIUM 40 MG/0.4 ML SYRG SC SCH (09:24)
[2018-12-06] MEDS: POLYETHYLENE GLYCOL 3350 17 GM PACKET PO SCH (09:25)
[2018-12-06] MEDS: PSYLLIUM SEED 1 PACKET PACKET PO SCH (09:25)
--- NOTE | 2018-12-06 10:58 | DS ---
(1) Multiple sclerosis Problem: Chronic (2) Altered mental status, unspecified Problem: Resolved (3) Fever Problem: Resolved Qualifiers: (4) Suprapubic catheter Problem: Chronic (5) UTI (urinary tract infection) Problem: Suspected Qualifiers: Urinary tract infection type: catheter-associated UTI Indwelling urinary ca theter type: indwelling urethral catheter Encounter type: sequela Qualified Code(s): T83.511S - Infection and inflammatory reaction due to indwelling urethral catheter, sequela; N39.0 - Urinary tract infection, site not specified (6) SIRS (systemic inflammatory response syndrome) Problem: Resolved (7) Hypotension Problem: Resolved (8) Hypokalemia Problem: Resolved Description of Stay: 38-year-old female who past medical history of multiple sclerosis, MRSA, recurrent UTIs, suprapubic catheter, borderline personality disorder, major depression presents from home with complaints of altered mental status and fever. Per her significant other she had a urologic procedure performed yesterday with a stent placed in order to remove a right-sided kidney stone. She was sent home after the procedure. He found her with altered mentation earlier this morning and fever. She was found to have SIRS and admitted to SCU. She later developed hypotension that was not responsive to IV fluid. She was started on norepinephrine drip with good response. She has been titrated off of the norepinephrine within less than 24 hours and has maintained her blood pressure. Urine cultures show no growth. Etiology of the fevers is likely from the urine. She is on day 4 of Zosyn. Follow-up urine culture and sensitivity. After discussion with her urologist from [facility], Dr. Gonzalez, he recommended that she should be sent home on ciprofloxacin for 10 more days because she did grow Pseudomonas in the urine that was sensitive to Ciprofloxacin on the past urine cultures (at [facility] and [facility]). She is clinically stable and has been afebrile for over 24 hours, vitals stable, and mentation is at baseline. She is stable to go home on oral ciprofloxacin today. Procedures Performed: none Results and Findings: Pending Mircobiology Results 12/03/18 13:13 Blood Blood Culture - Preliminary NO GROWTH AFTER 48 HOURS 12/03/18 13:05 Blood Blood Culture - Preliminary NO GROWTH AFTER 48 HOURS Lab Pending Results 12/03/18 13:05: Procalcitonin 1.24 H 12/03/18 13:05: WBC 14.7 H, RBC 4.30, Hgb 12.8, Hct 40.2, MCV 93.5, MCH 29.8, MCHC 31.8 L, RDW 17.4 H, Plt Count 236, MPV 11.2, Immature Gran % (Auto) 0.60 H, Immature Gran # (Auto) 0.09 H, Neutrophils % 86.6 H, Lymphocytes % 5.5 L, Monocytes % 6.9, Eosinophils % 0.1, Basophils % 0.3, Nucleated RBC % 0.0, Neutrophils # 12.7 H, Lymphocytes # 0.81 L, Monocytes # 1.0, Eosinophils # 0.0, Absolute Basophils 0.0 12/03/18 13:05: Sodium 141, Plasma Sodium 141, Potassium 3.6, Chloride 105, Carbon Dioxide 24.6, Anion Gap 15.0 H, BUN 8, Creatinine 1.05, Est GFR (Non-Af Amer) 62, BUN/Creatinine Ratio 7.6 L, Random Glucose 112 H, Calcium 10.2, Calcium Adj for Albumin 10.8 H, Magnesium 1.5, Total Bilirubin 0.4, AST 17, ALT 28, Alkaline Phosphatase 121, C-Reactive Prot, Quant 16.8 H, Total Protein 7.3, Albumin 2.9 L 12/03/18 13:05: Lactic Acid, Venous 2.0 12/03/18 13:05: Urine Color Yellow, Urine Appearance Cloudy, Urine pH 7.5, Ur Specific [place] 1.020, Urine Protein 100 H, Urine Glucose (UA) Negative, Urine Ketones Negative, Urine Blood 250 H, Urine Nitrate Negative, Urine Bilirubin Negative, Prot Sulfosalicylic Acd 4+ H, Urine Urobilinogen Normal, Ur Leukocyte Esterase 100 H, Urine RBC >50 H, Urine WBC >50 H, Ur Epithelial Cells 0-5, Urine Bacteria 1+ H, Urine Culture Comments Culture to follow 12/03/18 13:18: pCO2 23.8 L, pO2 79.4 L, HCO3 17.5 L, Total CO2 18.2 L, Base Excess -4.5 L, ABG pH 7.48 H, ABG O2 Sat (Measured) 96.7 12/04/18 05:35: WBC 9.6 D, RBC 3.59 L, Hgb 10.6 L, Hct 33.5 L, MCV 93.3, MCH 29.5, MCHC 31.6 L, RDW 17.2 H, Plt Count 193, MPV 11.3, Immature Gran % (Auto) 0.90 H, Immature Gran # (Auto) 0.09 H, Neutrophils % 83.6 H, Lymphocytes % 7.1 L, Monocytes % 7.5, Eosinophils % 0.7, Basophils % 0.2, Nucleated RBC % 0.0, Neutrophils # 8.1 H, Lymphocytes # 0.68 L, Monocytes # 0.7, Eosinophils # 0.1, Absolute Basophils 0.0 12/04/18 05:35: Sodium 137, Plasma Sodium 138, Potassium 3.1 L, Chloride 107 H, Carbon Dioxide 19.4 L, Anion Gap 13.7, BUN 6, Creatinine 0.90, Est GFR (Non-Af Amer) 74, BUN/Creatinine Ratio 6.7 L, Random Glucose 144 H, Calcium 8.8, Calcium Adj for Albumin 9.9, Total Bilirubin 0.4, AST 15, ALT 23, Alkaline Phosphatase 94, Total Protein 6.1 L, Albumin 2.2 L 12/05/18 01:30: Vancomycin Trough 12.5 12/05/18 05:37: WBC 6.0 D, RBC 3.39 L, Hgb 10.0 L, Hct 31.2 L, MCV 92.0, MCH 29.5, MCHC 32.1, RDW 17.2 H, Plt Count 171, MPV 11.2, Neutrophils % (Manual) 63, Band Neuts % (Manual) 1, Lymphocytes % (Manual) 31, Monocytes % (Manual) 2, Eosinophils % (Manual) 2, Basophils % (Manual) 1, Neutrophils # (Manual) 3.8, Lymphocytes # (Manual) 1.9, Monocytes # (Manual) 0.1, Eosinophils # (Manual) 0.1, Basophils # (Manual) 0.1, Platelet Estimate Normal, RBC Morphology Normal 12/05/18 05:37: Sodium 139, Plasma Sodium 139, Potassium 3.3 L, Chloride 107 H, Carbon Dioxide 21.5 L, Anion Gap 13.8, BUN 5, Creatinine 0.98, Est GFR (Non-Af Amer) 67, BUN/Creatinine Ratio 5.1 L, Random Glucose 119 H, Calcium 9.9, Calcium Adj for Albumin 11.0 H, Total Bilirubin 0.3, AST 18, ALT 22, Alkaline Phosphatase 92, Total Protein 6.2, Albumin 2.2 L 12/06/18 05:15: WBC 5.0, RBC 3.87 L, Hgb 11.5 L, Hct 36.3 L, MCV 93.8, MCH 29.7, MCHC 31.7 L, RDW 17.2 H, Plt Count 244, MPV 11.7, Immature Gran % (Auto) 0.40, Immature Gran # (Auto) 0.02, Neutrophils % 44.3, Lymphocytes % 35.6, Monocytes % 11.3 H, Eosinophils % 8.2 H, Basophils % 0.2, Nucleated RBC % 0.0, Neutrophils # 2.2, Lymphocytes # 1.77, Monocytes # 0.6, Eosinophils # 0.4, Absolute Basophils 0.0 12/06/18 05:15: Sodium 142, Plasma Sodium 142, Potassium 4.0 D, Chloride 107 H, Carbon Dioxide 30.1, Anion Gap 8.9, BUN 6, Creatinine 0.90, Est GFR (Non-Af Amer) 74, BUN/Creatinine Ratio 6.7 L, Random Glucose 88, Calcium 10.7, Calcium Adj for Albumin 11.5 H, Total Bilirubin 0.4, AST 17, ALT 25, Alkaline Phosphatase 104, Total Protein 7.5, Albumin 2.6 L Discharge Location: Home Disposition: Home Health Service Home Health Agency: [facility] Condition: Fair Discharge Activity: Activity as tolerated Discharge Diet: General/regular food Referrals: Yunior Cisneros DO [Primary Care Provider] - Additional Patient Instructions (free text): Resume services with [facility]. Please call report and fax orders upon discharge. Niya Sellers is her nurse. -Please make TCM appointment unless jail discharge, or if following up with outside provider. Thank you! Yvonne @ [phone] or Pia at [phone]. Prescriptions (Any new or edited meds): Ciprofloxacin HCl [Cipro] 500 mg PO BID #20 tab Complete Home Medications List: Complete Home Medication List: Cholecalciferol (Vitamin D3) [Vitamin D3] 4,000 unit PO BID 05/12/16 L.acidoph,Paracasei, B.lactis [Probiotic] 1 ea PO DAILY 12/02/16 Multivitamin [One Daily Essential] 1 ea PO DAILY 05/12/16 Sennosides/Docusate Sodium [Senna-Docusate Sodium Tablet] 1 ea PO DAILY 05/12/16 Baclofen 20 mg PO TID 02/06/17 Fluticasone Propionate [Flonase] 50 mcg NS DAILY 11/19/17 Linaclotide [Linzess] 145 mcg PO DAILY 05/10/18 Modafinil [Provigil] 100 mg PO DAILY 05/10/18 Cyanocobalamin (Vitamin B-12) [Vitamin B-12] 3,500 mcg PO DAILY 05/24/18 Polyethylene Glycol 3350 [Miralax] 17 gm PO DAILY 05/24/18 Vitamin B Complex 1 ea PO DAILY 05/24/18 lorazepam 0.5 mg tablet 0.5 mg PO BID PRN #60 tab 09/04/18 venlafaxine ER 150 mg capsule,extended release 24 hr 150 mg PO DAILY #30 cap 09/04/18 venlafaxine ER 75 mg tablet,extended release 24 hr 75 mg PO DAILY #30 tab 09/04/18 Budesonide [Pulmicort Respules] 0.5 mg INHALATION BID 09/15/18 Melatonin 10 mg PO DAILY 09/15/18 Psyllium Husk (with Sugar) [Metamucil] 1 pkt PO BID 09/15/18 Tiotropium [place] [Spiriva Respimat 2.5 mcg/inhalation] 2 puff INHALATION DAILY 09/15/18 Cetirizine HCl [Allergy Relief] 10 mg PO DAILY 11/08/18 Montelukast Sodium [Singulair] 10 mg PO DAILY 11/08/18 Peginterferon Beta-1A [Plegridy Pen] 94 mcg SQ .Q OTHER WEEK 11/08/18 Sennosides/Docusate Sodium [Senna Plus Tablet] 1 ea PO DAILY 11/08/18 Docusate Sodium [Colace] 200 mg PO BID 11/09/18 Albuterol Sulfate [Albuterol Sulfate Hfa] 8.5 gm INHALATION Q6H PRN 12/03/18 Budesonide [Pulmicort Respules] 2 ml INHALATION BID 12/03/18 Ciprofloxacin HCl [Cipro] 500 mg PO BID #20 tab 12/06/18
[2018-12-06 12:43] VITALS: BP 132/62
== END 2018-12-06 12:20 | disposition home health service (06) | DRG 699 ==
LOC: ER 12:54 → SCU 15:21 → MS 12-04 15:17
PROVIDERS: ADMIT Internal Medicine; ATTEND Internal Medicine
CPT/HCPCS: 36415; 36600; 71010; 71045; 74000; 74018; 80053; 80202; 81001; 82803; 83605; 83735; 84145; 85007; 85025; 86140; 87040; 87081; 87086; 94640; 94664; 96361; 96365; 96366; 96367; 99285; 99291; 99292; J0131

== ENCOUNTER 2020-10-02 22:45 | Inpatient (IN) ==
--- NOTE | 2020-10-02 23:35 | ERNOTE ---
Lower Extremity HPI - Narrative Date of Service: 10/02/20 - General Time Seen by Provider: 10/02/20 23:07 - Immun/Allergies/Home Medications Immunizations: IMMUNIZATION HX Immunizations Up to Date Yes History of Influenza Vaccine Yes Hx Pneumococcal Vaccination No Allergies/Adverse Reactions: Allergies Allergy/AdvReac Type Severity Reaction Status Date / Time dog dander Allergy Verified 10/02/20 22:56 glatiramer acetate Allergy Verified 10/02/20 22:56 [From Copaxone] grass pollen Allergy Verified 10/02/20 22:56 latex Allergy Verified 10/02/20 22:56 mold Allergy Verified 10/02/20 22:56 pollen extracts Allergy Verified 10/02/20 22:56 tree and shrub pollen Allergy Verified 10/02/20 22:56 bupropion HCl AdvReac Mild tremors Verified 10/02/20 22:56 [From Wellbutrin] cat dander AdvReac Verified 10/02/20 22:56 cocoa AdvReac Vomiting Verified 10/02/20 22:56 Home Medications: HOME MEDICATIONS Cholecalciferol (Vitamin D3) [Vitamin D3] 4,000 unit PO BID 05/12/16 [Last Taken 05/10/18] L.acidoph,Paracasei, B.lactis [Probiotic] 1 ea PO DAILY 05/12/16 [Last Taken 05/10/18] Multivitamin [One Daily Essential] 1 ea PO DAILY 05/12/16 [Last Taken 05/10/18] Baclofen 20 mg PO TID 02/06/17 [Last Taken Unknown] Fluticasone Propionate [Flonase] 50 mcg NS DAILY 11/19/17 [Last Taken 05/10/18] Linaclotide [Linzess] 145 mcg PO DAILY 05/10/18 [Last Taken 05/10/18] Modafinil [Provigil] 100 mg PO DAILY 05/10/18 [Last Taken 05/10/18] Cyanocobalamin (Vitamin B-12) [Vitamin B-12] 3,500 mcg PO DAILY 05/24/18 [Last Taken Unknown] Polyethylene Glycol 3350 [Miralax] 17 gm PO DAILY 05/24/18 [Last Taken Unknown] Vitamin B Complex 1 ea PO DAILY 05/24/18 [Last Taken Unknown] Melatonin 10 mg PO DAILY 09/15/18 [Last Taken Unknown] Psyllium Husk (with Sugar) [Metamucil] 1 pkt PO BID 09/15/18 [Last Taken Unknown] Montelukast Sodium [Singulair] 10 mg PO DAILY 11/08/18 [Last Taken Unknown] Peginterferon Beta-1A [Plegridy Pen] 94 mcg SQ .Q OTHER WEEK 11/08/18 [Last Taken 11/06/18 20:00] Sennosides/Docusate Sodium [Senna Plus Tablet] 1 ea PO DAILY 11/08/18 [Last Taken Unknown] Docusate Sodium [Colace] 200 mg PO BID 11/09/18 [Last Taken Unknown] Albuterol Sulfate [Albuterol Sulfate Hfa] 8.5 gm IH Q6H PRN 12/03/18 [Last Taken Unknown] Acetaminophen [Tylenol] 1,000 mg PO Q6H 02/09/20 [Last Taken Unknown] Loratadine [Claritin] 10 mg PO DAILY 02/09/20 [Last Taken Unknown] Loratadine/Pseudoephedrine [Loratadine-D 12 Hour Tablet] 1 ea PO BID #60 tab.er.12h 02/09/20 [Last Taken Unknown] lorazepam 0.5 mg tablet 0.5 mg PO BID PRN #60 tab 03/01/20 [Last Taken Unknown] venlafaxine 75 mg tablet,extended release 24 hr 75 mg PO DAILY #90 tab 04/14/20 [Last Taken Unknown] Budesonide [Pulmicort Respules] 2 ml IH BID #60 vial 05/09/20 [Last Taken Unknown] venlafaxine 150 mg capsule,extended release 24 hr 150 mg PO DAILY #90 cap 05/24/20 [Last Taken Unknown] - History of Present Illness Narrative: 39-year-old female history of multiple sclerosis is coming in stating that she is having weakness of her left lower extremity. Patient states that she did call her neurologist on-call at [facility] told come to the emergency department for evaluation and possible need for steroid infusion and evaluation for any signs of infection. Review of her medical record does indicate previous admissions here after having MS exacerbation secondary to urinary tract infection. Patient has an indwelling suprapubic catheter however denies any fevers chills. Patient also indicates that her foot on the left is cold and mottled but that this is typical of where her foot normally looks like. She denies any increase or new pain. Review of Systems - Review of Systems Constitutional: Present: See HPI Musculoskeletal: Present: See HPI Neurological: Present: See HPI All Other Systems: All systems neg except as marked Medical History (Last Reviewed 10/02/20 @ 23:33 by Jean Claude Blue MD) Overdose (Acute) Suicide attempt by drug ingestion (Acute) Multiple sclerosis, primary progressive (Chronic) Depression (Chronic) Contusion of head (Acute) Contusion of left elbow (Acute) Migraine headache (Acute) Depressed mood (Acute) Multiple sclerosis (Chronic) Enuresis (Acute) Tremor (Acute) Muscle spasm of back (Acute) UTI (urinary tract infection) (Suspected) Neurogenic bladder (Chronic) Medication reaction (Acute) Multiple sclerosis exacerbation (Acute) Brain concussion (Acute) Urinary bladder incontinence (Acute) Minor head trauma (Acute) Slurred speech (Acute) Swallowing difficulty (Acute) Leukocytosis (Acute) Viral gastroenteritis (Acute) Exacerbation of multiple sclerosis (Acute) Cough (Acute) Eye foreign body (Acute) Headache (Acute) Headache (Acute) Anxiety (Acute) Prolonged menstruation (Acute) Paronychia of finger (Acute) Vaginitis (Acute) Otitis media (Acute) Acute dermatitis (Acute) Tooth abscess (Acute) MRSA (methicillin resistant Staphylococcus aureus) infection (Acute) Asthma (Chronic) Abscess (Acute) Hidradenitis (Acute) Sinusitis (Acute) Cellulitis (Acute) Bronchitis (Acute) Blood in stool (Acute) Hordeolum externum (stye) (Acute) Allergic conjunctivitis (Acute) Dependent rubor (Acute) Cellulitis and abscess of upper arm and forearm (Acute) Ecchymosis (Acute) Peripheral edema (Acute) Depression (Acute) Anxiety (Acute) Headache (Acute) Restless leg syndrome (Acute) Otitis media with effusion (Acute) Abrasion, elbow w/o infection (Acute) Muscle strain (Acute) Pneumonia (Acute) Vomiting (Acute) Constipation (Acute) Catheter-associated urinary tract infection (Acute) Bladder spasms (Acute) Abdominal pain (Acute) Vasovagal episode (Acute) Yeast UTI (Acute) Generalized weakness (Acute) Sepsis (Resolved) Altered mental status, unspecified (Resolved) Fever (Resolved) Sepsis (Suspected) SIRS (systemic inflammatory response syndrome) (Resolved) Hypotension (Resolved) Hypokalemia (Resolved) Major depression (Chronic) Borderline personality disorder (Chronic) Suprapubic catheter (Chronic) Aplasia of uterus Frequent UTI History of hysteroscopy History of hysteroscopy MRSA (methicillin resistant staph aureus) culture positive MS Painful bladder spasm (Inactive) UTI (urinary tract infection) (Inactive) Surgical History: Surgical History (Last Reviewed 10/02/20 @ 23:33 by Jean Claude Blue MD) History of appendectomy (Acute) H/O cystoscopy Family History: Family History (Last Reviewed 10/02/20 @ 23:33 by Jean Claude Blue MD) Other No pertinent family history Social History: (Last Reviewed 10/02/20 @ 23:33 by Jean Claude Blue MD) Social History: half-way: No Marital status: Single household members: significant other number of children: 1 current occupational status: disabled Highest level of school completed/degree received: Master's degree Service: No Tobacco: Smoking Status: Current every day smoker Smoking cigarettes per day: 8 second hand exposure: Yes Alcohol: alcohol intake: never Substance Use: substance use type: does not use Dietary Habits: caffeine: Yes Exercise: Physical activity functional status: wheelchair user Physical Exam - Physical Exam General Appearance: Present: wd/wn, alert, no apparent distress, anxious Head Exam: Present: normal inspection, no evidence of injury Eye Exam: Normal inspection: bilateral Neck: Present: nontender, supple Respiratory: Present: no respiratory distress, normal breath sounds, no accessory muscle use, chest nontender, lungs clear Cardiovascular/Chest: Present: regular rate, rhythm, normal peripheral pulses Gastrointestinal/Abdominal: Present: nontender, nondistended, soft, other - Suprapubic catheter in place no obvious signs of external infection Extremity Exam: Present: other - Left lower extremity cool with palpable pulses capillary refill right at 2 seconds patient states it is typical for her to have a cool limb and denies any pain. She has decreased strength on the left side. Neurological Exam: Present: alert, oriented, normal mood/affect Skin Exam: Present: warm/dry Progress - Date and Time Seen: Date and Time: 10/02/20 23:34 According to the patient she contacted neurologist on-call at [facility] Dr. Miranda who started her to come into the hospital. We will evaluate her to rule out causes of exacerbation such as urinary tract infection which she has had in the past and does have a suprapubic catheter in place. Patient will likely need to be admitted for IV antibiotics and steroids we will contact the neurologist cosmetics and toiletries salesperson for any recommendations if they are available. 10/03/20 01:32 Results of urine shows the patient has a urinary tract infection likely creating her symptoms. Review of her medical record indicates multiple admissions in the past for same. Her lactic acid was within normal limits therefore we will go ahead and start her on IV Rocephin and admitted to the hospital. I discussed this case with Dr. Hoang who agrees with this plan and accepted to service. I discussed with the patient who also is in agreement. He will monitor the patient determine if she needs IV steroids - Vital Signs Vital Signs: Vital Signs 10/02/20 22:49 Temperature 36.5 C Pulse Rate 107 H Respiratory Rate 18 Blood Pressure 137/83 O2 Sat by Pulse Oximetry 99 - X-Ray X-Ray #1 X-Ray: chest Interpretation: Interp. by me - No acute findings, Reviewed by me - Progress/Reassessment Chief Complaint: Lower Extremity Pain/ Injury Departure Clinical Impression: UTI (urinary tract infection) Qualifiers: Urinary tract infection type: catheter-associated UTI Indwelling urinary catheter type: cystostomy catheter Encounter type: initial encounter Qualified Code(s): T83.510A - Infection and inflammatory reaction due to cystostomy ca theter, initial encounter; N39.0 - Urinary tract infection, site not specified - Departure Disposition: Short Term Hospital Inpatient Condition: Good Referrals: Yunior Cisneros DO [Primary Care Provider] -
[2020-10-02 23:41] LABS: Hematocrit 43.2 % (37.0-47.0); Hemoglobin 13.9 gm/dL (12.5-16.0); Mean Cell Volume 96.6 fl (78-100); Mean Corpuscular Hemoglobin 31.1 pg (27-31); Mean Corpuscular Hgb Conc 32.2 g/dl (32-36); Mean Platelet Volume 10.6 fl (8-12.5); Neutrophil # 5.1 K/mm3 (1.3-6.0); Neutrophil % 69.7 % (42-75.0); Platelet Count 259 K/mm3 (150-450); Red Blood Count 4.47 M/mm3 (4.2-5.4); Red Cell Distribution Width 12.8 % (11.5-14.0); White Blood Count 7.3 K/mm3 (4.0-10.5)
[2020-10-02 23:53] LABS: Albumin * 3.2 gm/dl (3.4-5.0); Anion Gap 7.3 mmol/L (6.8-13.8); BUN/Creatinine Ratio 6.3 (9.0-21.6); Bilirubin, Total 0.2 mg/dL (0.0-1.1); Calcium * 10.7 mg/dL (7.9-10.9); Carbon Dioxide 30.6 mmol/L (24-32.6); Potassium 3.9 mmol/L (3.4-4.6); Total Protein 7.3 gm/dL (6.2-8.2)
[2020-10-03 00:31] LABS: Urine Bilirubin Negative (NEGATIVE); Urine Blood Negative /ul (NEGATIVE); Urine Ketone Negative (NEGATIVE); Urine Protein Negative (NEGATIVE); Urine Urobilinogen Normal (NORMAL)
[2020-10-03 00:37] LABS: Urine Appearance Slightly Cloudy (CLEAR); Urine Bacteria 2+; Urine Color Yellow; Urine Nitrite Positive (NEGATIVE); Urine RBC None Seen /hpf (0-5)
[2020-10-03] MEDS ORDERED: cefTRIAXone SODIUM 1,000 MG/100 ML BAG IV ONE (01:16)
--- NOTE | 2020-10-03 07:52 | HP ---
Chief Complaint - Chief Complaint Date of Service: 10/03/20 Time of Service: 07:51 History of Present Illness: Isaura Landa is a 39-year-old white female with past medical history significant for multiple sclerosis, anxiety and depression, neurogenic bladder with suprapubic catheter, migraine headaches, who was admitted on 10/03/2020 because of weakness of her left lower leg. 1 day prior to admission the patient noticed that her left leg is much weaker than her right leg. She called her neurologist in [facility] who told her to go to the emergency room to evaluate for exacerbation of her multiple sclerosis/infections. She does have purple toes of her left foot which she says is not new and has been evaluated by a vascular surgeon in [place]. She denied any fever or chills, frequency of urination, coughing, open wounds. She has a indwelling suprapubic catheter which is changed every end of the month in [place] by her urologist. Her blood work in the emergency room showed white blood cell count of 7.3, hemoglobin of 13.9, neutrophils of 69.7. Her CMP were essentially normal. Her urinalysis showed urinary tract infection and she was admitted for further evaluation and treatment. She says she has had exac erbation of her multiple sclerosis in the past and this is how it usually presents. Medical History (Last Reviewed 10/03/20 @ 03:46 by Hamida Rojo RN) Overdose (Acute) Suicide attempt by drug ingestion (Acute) Multiple sclerosis, primary progressive (Chronic) Depression (Chronic) Contusion of head (Acute) Contusion of left elbow (Acute) Migraine headache (Acute) Depressed mood (Acute) Multiple sclerosis (Chronic) Enuresis (Acute) Tremor (Acute) Muscle spasm of back (Acute) UTI (urinary tract infection) (Suspected) Neurogenic bladder (Chronic) Medication reaction (Acute) Multiple sclerosis exacerbation (Acute) Brain concussion (Acute) Urinary bladder incontinence (Acute) Minor head trauma (Acute) Slurred speech (Acute) Swallowing difficulty (Acute) Leukocytosis (Acute) Viral gastroenteritis (Acute) Exacerbation of multiple sclerosis (Acute) Cough (Acute) Eye foreign body (Acute) Headache (Acute) Headache (Acute) Anxiety (Acute) Prolonged menstruation (Acute) Paronychia of finger (Acute) Vaginitis (Acute) Otitis media (Acute) Acute dermatitis (Acute) Tooth abscess (Acute) MRSA (methicillin resistant Staphylococcus aureus) infection (Acute) Asthma (Chronic) Abscess (Acute) Hidradenitis (Acute) Sinusitis (Acute) Cellulitis (Acute) Bronchitis (Acute) Blood in stool (Acute) Hordeolum externum (stye) (Acute) Allergic conjunctivitis (Acute) Dependent rubor (Acute) Cellulitis and abscess of upper arm and forearm (Acute) Ecchymosis (Acute) Peripheral edema (Acute) Depression (Acute) Anxiety (Acute) Headache (Acute) Restless leg syndrome (Acute) Otitis media with effusion (Acute) Abrasion, elbow w/o infection (Acute) Muscle strain (Acute) Pneumonia (Acute) Vomiting (Acute) Constipation (Acute) Catheter-associated urinary tract infection (Acute) Bladder spasms (Acute) Abdominal pain (Acute) Vasovagal episode (Acute) Yeast UTI (Acute) Generalized weakness (Acute) Sepsis (Resolved) Altered mental status, unspecified (Resolved) Fever (Resolved) Sepsis (Suspected) SIRS (systemic inflammatory response syndrome) (Resolved) Hypotension (Resolved) Hypokalemia (Resolved) Major depression (Chronic) Borderline personality disorder (Chronic) Suprapubic catheter (Chronic) Aplasia of uterus Frequent UTI History of hysteroscopy History of hysteroscopy MRSA (methicillin resistant staph aureus) culture positive MS Painful bladder spasm (Inactive) UTI (urinary tract infection) (Inactive) Surgical History: Surgical History (Last Reviewed 10/03/20 @ 03:47 by Hamida Rojo RN) History of appendectomy (Acute) H/O cystoscopy Family History: Family History (Last Reviewed 10/03/20 @ 03:49 by Hamida Rojo RN) Other No pertinent family history Social History: (Last Updated 10/03/20 @ 03:50 by Hamida Rojo RN) Social History: skilled nursing: No Marital status: Single household members: significant other number of children: 1 current occupational status: disabled Highest level of school completed/degree received: Master's degree Service: No Tobacco: Smoking Status: Former smoker Smoking End Date: 10/02/20 Tobacco: How many years used: 16 how long ago did patient quit smoking: yesterday second hand exposure: Yes Alcohol: alcohol intake: former Alcohol type: beer Substance Use: substance use type: does not use Dietary Habits: caffeine: Yes Exercise: Physical activity functional status: wheelchair user Review Of Systems (GEN) - Review of Systems Generalized/Overall Review: Present: Weakness - Left leg. Absent: Chills, Fever EENTM: Absent: Blurred Vision, Double Vision Respiratory: Absent: Cough, Shortness of Breath, Orthopnea Cardiac: Absent: Chest Pain, Edema, Palpitations Abdominal: Absent: Nausea, Vomiting, Abdominal Pain Genitourinary: Absent: Urgency, Frequency Musculoskeletal: Absent: Joint Pain, Back Pain Neurological: Absent: Headache Skin: Present: Change in Color - Chronic. Absent: Lesions, Rash Misc: All systems neg except as marked Immunizations: IMMUNIZATION HX Immunizations Up to Date Yes History of Influenza Vaccine Yes Hx Pneumococcal Vaccination No Allergies/Adverse Reactions: Allergies Allergy/AdvReac Type Severity Reaction Status Date / Time dog dander Allergy Verified 10/02/20 22:56 glatiramer acetate Allergy Verified 10/02/20 22:56 [From Copaxone] grass pollen Allergy Verified 10/02/20 22:56 latex Allergy Verified 10/02/20 22:56 mold Allergy Verified 10/02/20 22:56 pollen extracts Allergy Verified 10/02/20 22:56 tree and shrub pollen Allergy Verified 10/02/20 22:56 bupropion HCl AdvReac Mild tremors Verified 10/02/20 22:56 [From Wellbutrin] cat dander AdvReac Verified 10/02/20 22:56 cocoa AdvReac Vomiting Verified 10/02/20 22:56 Home Medications: HOME MEDICATIONS Cholecalciferol (Vitamin D3) [Vitamin D3] 4,000 unit PO BID 05/12/16 [Last Taken 05/10/18] L.acidoph,Paracasei, B.lactis [Probiotic] 1 ea PO DAILY 05/12/16 [Last Taken 05/10/18] Multivitamin [One Daily Essential] 1 ea PO DAILY 05/12/16 [Last Taken 05/10/18] Baclofen 20 mg PO TID 02/06/17 [Last Taken Unknown] Fluticasone Propionate [Flonase] 50 mcg NS DAILY 11/19/17 [Last Taken 05/10/18] Linaclotide [Linzess] 145 mcg PO DAILY 05/10/18 [Last Taken 05/10/18] Modafinil [Provigil] 100 mg PO DAILY 05/10/18 [Last Taken 05/10/18] Cyanocobalamin (Vitamin B-12) [Vitamin B-12] 3,500 mcg PO DAILY 05/24/18 [Last Taken Unknown] Polyethylene Glycol 3350 [Miralax] 17 gm PO DAILY 05/24/18 [Last Taken Unknown] Vitamin B Complex 1 ea PO DAILY 05/24/18 [Last Taken Unknown] Melatonin 10 mg PO DAILY 09/15/18 [Last Taken Unknown] Psyllium Husk (with Sugar) [Metamucil] 1 pkt PO BID 09/15/18 [Last Taken Unknown] Montelukast Sodium [Singulair] 10 mg PO DAILY 11/08/18 [Last Taken Unknown] Peginterferon Beta-1A [Plegridy Pen] 94 mcg SQ .Q OTHER WEEK 11/08/18 [Last Taken 11/06/18 20:00] Sennosides/Docusate Sodium [Senna Plus Tablet] 1 ea PO DAILY 11/08/18 [Last Taken Unknown] Docusate Sodium [Colace] 200 mg PO BID 11/09/18 [Last Taken Unknown] Albuterol Sulfate [Albuterol Sulfate Hfa] 8.5 gm IH Q6H PRN 12/03/18 [Last Taken Unknown] Acetaminophen [Tylenol] 1,000 mg PO Q6H 02/09/20 [Last Taken Unknown] Loratadine [Claritin] 10 mg PO DAILY 02/09/20 [Last Taken Unknown] Loratadine/Pseudoephedrine [Loratadine-D 12 Hour Tablet] 1 ea PO BID #60 tab.er.12h 02/09/20 [Last Taken Unknown] lorazepam 0.5 mg tablet 0.5 mg PO BID PRN #60 tab 03/01/20 [Last Taken Unknown] venlafaxine 75 mg tablet,extended release 24 hr 75 mg PO DAILY #90 tab 04/14/20 [Last Taken Unknown] Budesonide [Pulmicort Respules] 2 ml IH BID #60 vial 05/09/20 [Last Taken Unknown] venlafaxine 150 mg capsule,extended release 24 hr 150 mg PO DAILY #90 cap 05/24/20 [Last Taken Unknown] Exam - Exam Vital Signs: Vital Signs - Last Taken Temp 37.2 C 10/03/20 06:45 Pulse 88 10/03/20 06:45 Resp 12 10/03/20 06:45 BP 114/75 10/03/20 06:45 Pulse Ox 96 10/03/20 06:45 Constitutional: Present: Alert, Oriented x3, Cooperative, Obese ENT Exam: Present: hearing grossly normal Eye Exam: bilateral eye: normal inspection, PERRL, EOMI Neck: Present: supple. Absent: lymphadenopathy (R), lymphadenopathy (L) Respiratory: Present: normal breath sounds, No rales, No wheezing Cardiovascular/Chest: Present: regular rate, rhythm, no JVD, no murmur Peripheral Pulses: dorsalis-pedis (R): 3+, dorsalis-pedis (L): 2+ Abdomen: Present: Normal bowel sounds, soft, nontender, nondistended, obese Extremity: Present: no calf tenderness, other - Reddish-purplish discoloration of toes left foot Neurologic: Present: oriented x 3, motor weakness - Plantar flexion of left foot weak with done right foot, hyperreflexia left leg Diagnostic Studies: Abnormal Lab Results 10/02/20 10/02/20 10/03/20 Range/Units 23:35 23:35 00:20 MCH 31.1 H (27-31) pg Immature Gran % (Auto) 0.80 H (0.001-0.429) % Immature Gran # (Auto) 0.06 H (0.000-0.0310) K/mm3 Lymphocytes % 17.1 L (20-51) % Monocytes % 9.9 H (0.0-9) % Lymphocytes # 1.24 L (1.5-3.5) k/mm3 Chloride 108 H (97-106) mmol/L BUN/Creatinine Ratio 6.3 L (9.0-21.6) Calcium Adj for Albumin 11.0 H (8.4-10.2) mg/dL Albumin 3.2 L (3.4-5.0) gm/dl Urine Nitrate Positive H (NEGATIVE) Ur Leukocyte Esterase 100 H (NEGATIVE) /ul Urine WBC 10-25 H (0-5) /hpf Ur Epithelial Cells 5-10 H (0-5) /hpf Urine Bacteria 2+ H (NONE) Laboratory Results WBC 7.3 K/mm3 (4.0-10.5) 10/02/20 23:35 RBC 4.47 M/mm3 (4.2-5.4) 10/02/20 23:35 Hgb 13.9 gm/dL (12.5-16.0) 10/02/20 23:35 Hct 43.2 % (37.0-47.0) 10/02/20 23:35 MCV 96.6 fl (78-100) 10/02/20 23:35 MCH 31.1 pg (27-31) H 10/02/20 23: MCHC 32.2 g/dl (32-36) 10/02/20 23:35 RDW 12.8 % (11.5-14.0) 10/02/20 23:35 Plt Count 259 K/mm3 (150-450) 10/02/20 23: MPV 10.6 fl (8-12.5) 10/02/20 23:35 Immature Gran % (Auto) 0.80 % (0.001-0.429) H 10/02/20 23: Immature Gran # (Auto) 0.06 K/mm3 (0.000-0.0310) H 10/02/20 23:35 Neutrophils % 69.7 % (42-75.0) 10/02/20 23:35 Lymphocytes % 17.1 % (20-51) L 10/02/20 23:35 Monocytes % 9.9 % (0.0-9) H 10/02/20 23:35 Eosinophils % 1.9 % (0.0-3.0) 10/02/20 23: Basophils % 0.6 % (0.0-1.0) 10/02/20 23: Nucleated RBC % 0.0 k/mm3 (0-1) 10/02/20 23:35 Neutrophils # 5.1 K/mm3 (1.3-6.0) 10/02/20 23: Lymphocytes # 1.24 k/mm3 (1.5-3.5) L 10/02/20 23:35 Monocytes # 0.7 k/mm3 (0.0-1.0) 10/02/20 23:35 Eosinophils # 0.1 k/mm3 (0.0-0.7) 10/02/20 23: Absolute Basophils 0.0 k/mm3 (0.0-0.1) 10/02/20 23:35 Sodium 142 mmol/L (132-142) 10/02/20 23:35 Plasma Sodium 142 mmol/L (130-142) 10/02/20 23:35 Potassium 3.9 mmol/L (3.4-4.6) 10/02/20 23:35 Chloride 108 mmol/L (97-106) H 10/02/20 23:35 Carbon Dioxide 30.6 mmol/L (24-32.6) 10/02/20 23:35 Anion Gap 7.3 mmol/L (6.8-13.8) 10/02/20 23:35 BUN 5 mg/dL (3-23) 10/02/20 23:35 Creatinine 0.80 mg/dL (0.4-1.4) 10/02/20 23:35 Est GFR (Non-Af Amer) 84 mL/min (60-130) 10/02/20 23:35 BUN/Creatinine Ratio 6.3 (9.0-21.6) L 10/02/20 23:35 Random Glucose 93 mg/dL (70-110) 10/02/20 23:35 Lactic Acid, Venous 1.2 mmol/L (0.4-2.0) 10/02/20 23:35 Calcium 10.7 mg/dL (7.9-10.9) 10/02/20 23:35 Calcium Adj for Albumin 11.0 mg/dL (8.4-10.2) H 10/02/20 23:35 Total Bilirubin 0.2 mg/dL (0.0-1.1) 10/02/20 23:35 AST 23 U/L (0-48) 10/02/20 23:35 ALT 47 U/L (19-67) 10/02/20 23:35 Alkaline Phosphatase 133 U/L (50-170) 10/02/20 23:35 Total Protein 7.3 gm/dL (6.2-8.2) 10/02/20 23:35 Albumin 3.2 gm/dl (3.4-5.0) L 10/02/20 23:35 Urine Color Yellow 10/03/20 00:20 Urine Appearance Slightly cloudy (CLEAR) 10/03/20 00:20 Urine pH 7.0 pH (5.0-7.0) 10/03/20 00:20 Ur Specific [place] 1.020 SP.GR. (1.005-1.010) 10/03/20 00:20 Urine Protein Negative mg/dL (NEGATIVE) 10/03/20 00:20 Urine Glucose (UA) Negative mg/dL (NEGATIVE) 10/03/20 00:20 Urine Ketones Negative mg/dL (NEGATIVE) 10/03/20 00:20 Urine Blood Negative /ul (NEGATIVE) 10/03/20 00:20 Urine Nitrate Positive (NEGATIVE) H 10/03/20 00:20 Urine Bilirubin Negative mg/dl (NEGATIVE) 10/03/20 00:20 Urine Urobilinogen Normal EU/dl (NORMAL) 10/03/20 00:20 Ur Leukocyte Esterase 100 /ul (NEGATIVE) H 10/03/20 00:20 Urine RBC None seen /hpf (0-5) 10/03/20 00:20 Urine WBC 10-25 /hpf (0-5) H 10/03/20 00:20 Ur Epithelial Cells 5-10 /hpf (0-5) H 10/03/20 00:20 Urine Bacteria 2+ (NONE) H 10/03/20 00:20 Urine Culture Comments Culture to follow 10/03/20 00:20 Urine HCG, Qual Negative (NEGATIVE) 10/03/20 00:20 SARS-CoV-2 (PCR) Not detected (NotDetected) 10/03/20 01:45 Assessment/Plan - Narrative Narrative: Isaura was admitted for left leg weakness which started yesterday likely due to an exacerbation of her multiple sclerosis and she was also found to have a urinary tract infection. We will start her on IV steroids and IV antibiotics for at least 3 days. We will await her culture and sensitivity. Her purple toes had been worked up by vascular surgery in [place] and she was told that there was nothing to worry about it. We will try to get medical records from [place]. - Assessment/Plan (1) UTI (urinary tract infection) Problem: Acute Qualifiers: Urinary tract infection type: catheter-associated UTI Indwelling urinary catheter type: cystostomy catheter Encounter type: initial encounter Qualified Code(s): T83.510A - Infection and inflammatory reaction due to cystostomy catheter, initial encounter; N39.0 - Urinary tract infection, site not specified (2) Multiple sclerosis exacerbation Problem: Acute (3) Urinary bladder incontinence Problem: Chronic Qualifiers: Urinary Incontinence type: urinary incontinence without sensory awareness Qualified Code(s): N39.42 - Incontinence without sensory awareness (4) Depression Problem: Chronic
[2020-10-03] MEDS: NORMAL SALINE IV SCH ×2 (09:33→21:20)
[2020-10-03] MEDS: METHYLPREDNISOLONE SOD SUCC IV SCH ×2 (09:33→21:20)
[2020-10-03] MEDS: ENOXAPARIN SODIUM 40 MG/0.4 ML SYRG SC SCH (14:33)
[2020-10-03] MEDS ORDERED: LORazepam 0.5 MG TABLET PO PRN (15:24)
[2020-10-03] MEDS ORDERED: ALBUTEROL SULFATE 200 PUFF INHALER IH PRN (15:24)
[2020-10-03] MEDS: ACETAMINOPHEN 500 MG TABLET PO SCH (17:18)
[2020-10-03] MEDS: DOCUSATE SODIUM 100 MG CAPSULE PO SCH (20:38)
[2020-10-03] MEDS: BACLOFEN 10 MG TABLET PO SCH (20:38)
[2020-10-03] MEDS: MELATONIN 3,000 MCG TABLET PO SCH (20:39)
[2020-10-03] MEDS: CHOLECALCIFEROL 1,000 UNIT CAPSULE PO SCH (20:40)
[2020-10-03] MEDS ORDERED: CHOLECALCIFEROL 2000 UNIT PO SCH (21:00)
[2020-10-03] MEDS ORDERED: [UNRECOGNIZED DRUG - OTHER] PO SCH (21:00)
[2020-10-03] MEDS ORDERED: MELATONIN 5 MG PO SCH (21:00)
[2020-10-04] MEDS: ACETAMINOPHEN 500 MG TABLET PO SCH ×5 (01:34→23:27)
[2020-10-04] MEDS ORDERED: ALBUTEROL SULFATE 2.5 MG/0.5 ML VIAL.NEB IH PRN (06:45)
--- NOTE | 2020-10-04 08:46 | PN ---
Subjective - Date and Time Seen Date: 10/04/20 Time: 08:39 Subjective Narrative: Patient feels weak. She says that normally she can stand up and transfer. Her nurse says that they had to Roberto lift her today. Her toes is no longer purplish and reddish. Objective - Review of Systems Generalized/Overall Review: Reports: Weakness. Denies: Chills, Fever EENTM: Reports: Other - Blindness of right eye Respiratory: Denies: Cough, Shortness of Breath, Orthopnea Cardiac: Denies: Chest Pain, Edema, Palpitations Abdominal: Denies: Nausea, Vomiting, Abdominal Pain Genitourinary Symptoms: Denies: Urgency, Frequency Musculoskeletal Complaints: Denies: Joint Pain, Back Pain Neurological: Denies: Headache Misc: All systems neg except as marked - Vitals Vitals: Last Vital Signs Temp 36.8 C 10/04/20 06:00 Pulse 76 10/04/20 06:00 Resp 20 10/04/20 06:00 BP 114/66 10/04/20 06:00 Pulse Ox 93 10/04/20 06:00 - Exam Constitutional: Present: Alert, Oriented x3, Cooperative ENT Exam: Present: hearing grossly normal Neck: Present: supple. Absent: limited range of motion, lymphadenopathy (R) Respiratory: Present: normal breath sounds, No rales, No wheezing Cardiovascular/Chest: Present: regular rate, rhythm, no JVD, no murmur Extremity: Present: no calf tenderness, pedal edema. Absent: lower extremity edema Skin Exam: Present: other - Reddish purplish discoloration of her toes of her left foot is no longer present Neurologic: Present: shingle weaver II-XII nml as tested, oriented x 3, motor weakness, other - Weaker plantar flexion of left foot done right Assessment/Plan Plan Narrative: Isaura was admitted for UTI and exacerbation of her multiple sclerosis. She is on Levaquin and IV Solu-Medrol 500 mg IV twice a day. She is complaining of weakness and we will refer her to physical therapy for evaluation and treatment. Her culture and sensitivity of her urine is growing greater than 100,000 gram- negative bacilli. Awaiting final results. We will continue present management and current medications. She is on the second of her IV antibiotics. - Problems/Diagnosis (1) UTI (urinary tract infection) Problem: Acute Qualifiers: Urinary tract infection type: catheter-associated UTI Indwelling urinary catheter type: cystostomy catheter Encounter type: initial encounter Qualified Code(s): T83.510A - Infection and inflammatory reaction due to cystostomy catheter, initial encounter; N39.0 - Urinary tract infection, site not specified (2) Multiple sclerosis exacerbation Problem: Acute (3) Urinary bladder incontinence Problem: Chronic Qualifiers: Urinary Incontinence type: urinary incontinence without sensory awareness Qualified Code(s): N39.42 - Incontinence without sensory awareness (4) Depression Problem: Chronic
[2020-10-04] MEDS ORDERED: VITAMIN B COMPLEX PO SCH (09:00)
[2020-10-04] MEDS ORDERED: [UNRECOGNIZED DRUG - OTHER] PO SCH (09:00)
[2020-10-04] MEDS ORDERED: VENLAFAXINE HCL 75 MG PO SCH (09:00)
[2020-10-04] MEDS ORDERED: ACIDOPH PARACASEI B LACTIS PO SCH (09:00)
[2020-10-04] MEDS ORDERED: MULTIVITAMIN PO SCH (09:00)
[2020-10-04] MEDS ORDERED: LORATADINE 10 MG PO SCH (09:00)
[2020-10-04] MEDS ORDERED: CYANOCOBALAMIN 2000 MCG PO SCH (09:00)
[2020-10-04] MEDS: NORMAL SALINE IV SCH ×2 (10:44→21:29)
[2020-10-04] MEDS: METHYLPREDNISOLONE SOD SUCC IV SCH ×2 (10:44→21:29)
[2020-10-04] MEDS: VENLAFAXINE HCL 37.5 MG CAP.SR.24H PO SCH (10:45)
[2020-10-04] MEDS: LACTOBACILLUS ACIDOPHILUS 1 EACH CAPSULE PO SCH (10:45)
[2020-10-04] MEDS: CHOLECALCIFEROL 1,000 UNIT CAPSULE PO SCH ×2 (10:45→20:50)
[2020-10-04] MEDS: VITAMIN B COMP W-C 1 TAB TABLET PO SCH (10:45)
[2020-10-04] MEDS: CYANOCOBALAMIN 1,000 MCG TABLET PO SCH (10:45)
[2020-10-04] MEDS: BACLOFEN 10 MG TABLET PO SCH ×3 (10:46→20:50)
[2020-10-04] MEDS: DOCUSATE SODIUM 100 MG CAPSULE PO SCH ×2 (10:46→20:49)
[2020-10-04] MEDS: LORATADINE 10 MG TABLET PO SCH (10:46)
[2020-10-04] MEDS: VENLAFAXINE HCL 150 MG CAP.SR.24H PO SCH (10:46)
[2020-10-04] MEDS: MULTIVITAMINS 1 CAP CAPSULE PO SCH (10:46)
[2020-10-04] MEDS: POLYETHYLENE GLYCOL 3350 17 GM PACKET PO SCH (10:46)
[2020-10-04] MEDS: SENNOSIDES/DOCUSATE SODIUM 1 TAB TABLET PO SCH (10:47)
[2020-10-04] MEDS: MONTELUKAST SODIUM 10 MG TABLET PO SCH (10:47)
[2020-10-04] MEDS: ENOXAPARIN SODIUM 40 MG/0.4 ML SYRG SC SCH (14:25)
[2020-10-04] MEDS: MELATONIN 3,000 MCG TABLET PO SCH (20:49)
[2020-10-05] MEDS: ACETAMINOPHEN 500 MG TABLET PO SCH ×2 (05:07→12:46)
--- NOTE | 2020-10-05 08:05 | DS ---
(1) UTI (urinary tract infection) Problem: Acute Qualifiers: Urinary tract infection type: catheter-associated UTI Indwelling urinary catheter type: cystostomy catheter Encounter type: initial encounter Qualified Code(s): T83.510A - Infection and inflammatory reaction due to cystostomy catheter, initial encounter; N39.0 - Urinary tract infection, site not specified (2) Multiple sclerosis exacerbation Problem: Acute (3) Urinary bladder incontinence Problem: Chronic Qualifiers: Urinary Incontinence type: urinary incontinence without sensory awareness Qualified Code(s): N39.42 - Incontinence without sensory awareness (4) Depression Problem: Chronic (5) Morbid obesity with BMI of 40.0-44.9, adult Problem: Chronic Date of Discharge:: 10/05/20 Hospital Course: Isaura Landa is a 39-year-old white female with past medical history significant for multiple sclerosis, anxiety and depression, neurogenic bladder with suprapubic catheter, migraine headaches, who was admitted on 10/03/2020 because of weakness of her left lower leg. 1 day prior to admission the patient noticed that her left leg is much weaker than her right leg. She called her neurologist in [facility] who told her to go to the emergency room to evaluate for exacerbation of her multiple sclerosis and infection. She does have purple toes of her left foot which she says is not new and has been evaluated by a vascular surgeon in [place]. She did have PVD but no obstruction. She denied any fever or chills, frequency of urination, coughing, open wounds. She has a indwelling suprapubic catheter which is changed every end of the month in [place] by her urologist. Her blood work in the emergency room showed white blood cell count of 7.3, hemoglobin of 13.9, neutrophils of 69.7. Her CMP were essentially normal. Her urinalysis showed urinary tract infection and she was admitted for further evaluation and treatment for UTI and exacerbation of her MS.. She says she has had exacerbation of her multiple sclerosis in the past and this is how it usually presents especially when she has aconcomittant infection. She says she has left foot drop and it is mcuh weaker than her baseline in the past few days. She was started on IV steroids 500 BID x 3 days and IV rocephin . Her UCS grew Klebsiella Pneumoniae which was sensitive to the rocephin we started her on. . She says she has an appointment with her urologist this Sunday to have her catheter changed. She had PT evaluate her. She is feeling so much better today and she feels her left foot drop strength is back to baseline. She is wanting to go home today. Her elevated WBC today is due to her IV solumedrol. Patient was encouraged to lose weight which can help with her ambulation and transfers. Will give her 4 more days of oral antibiotics until she sees her Urologist. Procedures Performed: none Results and Findings: Lab Pending Results 10/02/20 23:35: WBC 7.3, RBC 4.47, Hgb 13.9, Hct 43.2, MCV 96.6, MCH 31.1 H, MCHC 32.2, RDW 12.8, Plt Count 259, MPV 10.6, Immature Gran % (Auto) 0.80 H, Immature Gran # (Auto) 0.06 H, Neutrophils % 69.7, Lymphocytes % 17.1 L, Monocytes % 9.9 H, Eosinophils % 1.9, Basophils % 0.6, Nucleated RBC % 0.0, Neutrophils # 5.1, Lymphocytes # 1.24 L, Monocytes # 0.7, Eosinophils # 0.1, Absolute Basophils 0.0 10/02/20 23:35: Sodium 142, Plasma Sodium 142, Potassium 3.9, Chloride 108 H, Carbon Dioxide 30.6, Anion Gap 7.3, BUN 5, Creatinine 0.80, Est GFR (Non-Af Amer) 84, BUN/Creatinine Ratio 6.3 L, Random Glucose 93, Calcium 10.7, Calcium Adj for Albumin 11.0 H, Total Bilirubin 0.2, AST 23, ALT 47, Alkaline Phosphatase 133, Total Protein 7.3, Albumin 3.2 L 10/02/20 23:35: Lactic Acid, Venous 1.2 10/03/20 00:20: Urine Color Yellow, Urine Appearance Slightly cloudy, Urine pH 7.0, Ur Specific [employer] 1.020, Urine Protein Negative, Urine Glucose (UA) Negative, Urine Ketones Negative, Urine Blood Negative, Urine Nitrate Positive H, Urine Bilirubin Negative, Urine Urobilinogen Normal, Ur Leukocyte Esterase 100 H, Urine RBC None seen, Urine WBC 10-25 H, Ur Epithelial Cells 5-10 H, Urine Bacteria 2+ H, Urine Culture Comments Culture to follow 10/03/20 00:20: Urine HCG, Qual Negative 10/03/20 01:45: SARS-CoV-2 (PCR) Not detected Discharge Location: Home Disposition: [facility] Home Health Agency: [facility] Condition: Stable Discharge Activity: Activity as tolerated Discharge Diet: General/regular food Referrals: Dudley Jewell DO [Non Staff Physicians] - Yunior Cisneros DO [Primary Care Provider] - Problem Oriented Discharge Instructions to Patient/Family: Urinary Tract Infection, Adult, [id number] Additional Patient Instructions (free text): [facility] ongoing. Nursing please call and fax discharge information to them at discharge. Follow up Urology appointment with Dudley Jewell DO at [facility] on this SundayOctober 08 at 1:00pm. (Nursing) please fax discharge information to fax# [phone]. Follow up with PCP, Dr. Yunior Cisneros on SundayOctober 13 at 1:30pm. (Nursing) Please fax discharge information to fax# [phone]. Prescriptions (Any new or edited meds): Cefdinir [Omnicef] 300 mg PO Q12H #8 cap Transmission Status: Pending to [id number] Complete Home Medications List: Complete Home Medication List: Cholecalciferol (Vitamin D3) [Vitamin D3] 4,000 unit PO BID 05/12/16 L.acidoph,Paracasei, B.lactis [Probiotic] 1 ea PO DAILY 05/12/16 Multivitamin [One Daily Essential] 1 ea PO DAILY 05/12/16 Baclofen 20 mg PO TID 02/06/17 Linaclotide [Linzess] 145 mcg PO DAILY 05/10/18 Cyanocobalamin (Vitamin B-12) [Vitamin B-12] 3,500 mcg PO DAILY 05/24/18 Polyethylene Glycol 3350 [Miralax] 17 gm PO DAILY 05/24/18 Vitamin B Complex 1 ea PO DAILY 05/24/18 Melatonin 10 mg PO DAILY 09/15/18 Montelukast Sodium [Singulair] 10 mg PO DAILY 11/08/18 Peginterferon Beta-1A [Plegridy Pen] 94 mcg SQ .Q OTHER WEEK 11/08/18 Sennosides/Docusate Sodium [Senna Plus Tablet] 1 ea PO DAILY 11/08/18 Docusate Sodium [Colace] 200 mg PO BID 11/09/18 Albuterol Sulfate [Albuterol Sulfate Hfa] 8.5 gm IH Q6H PRN 12/03/18 Acetaminophen [Tylenol] 1,000 mg PO Q6H 02/09/20 Loratadine [Claritin] 10 mg PO DAILY 02/09/20 lorazepam 0.5 mg tablet 0.5 mg PO BID PRN #60 tab 03/01/20 venlafaxine 75 mg tablet,extended release 24 hr 75 mg PO DAILY #90 tab 04/14/20 venlafaxine 150 mg capsule,extended release 24 hr 150 mg PO DAILY #90 cap 05/24/20 Cefdinir [Omnicef] 300 mg PO Q12H #8 cap 10/05/20 Forms: Patient Portal Registration
[2020-10-05] MEDS: BACLOFEN 10 MG TABLET PO SCH ×2 (08:22→12:46)
[2020-10-05] MEDS: MONTELUKAST SODIUM 10 MG TABLET PO SCH (08:23)
[2020-10-05] MEDS: LORATADINE 10 MG TABLET PO SCH (08:24)
[2020-10-05] MEDS: LACTOBACILLUS ACIDOPHILUS 1 EACH CAPSULE PO SCH (08:24)
[2020-10-05] MEDS: VENLAFAXINE HCL 37.5 MG CAP.SR.24H PO SCH (08:25)
[2020-10-05] MEDS: MULTIVITAMINS 1 CAP CAPSULE PO SCH (08:25)
[2020-10-05] MEDS: DOCUSATE SODIUM 100 MG CAPSULE PO SCH (08:25)
[2020-10-05] MEDS: VENLAFAXINE HCL 150 MG CAP.SR.24H PO SCH (08:26)
[2020-10-05] MEDS: POLYETHYLENE GLYCOL 3350 17 GM PACKET PO SCH (08:27)
[2020-10-05] MEDS: CHOLECALCIFEROL 1,000 UNIT CAPSULE PO SCH (08:28)
[2020-10-05] MEDS: VITAMIN B COMP W-C 1 TAB TABLET PO SCH (08:28)
[2020-10-05] MEDS: CYANOCOBALAMIN 1,000 MCG TABLET PO SCH (08:29)
[2020-10-05] MEDS: NORMAL SALINE IV SCH ×2 (08:46→15:51)
[2020-10-05] MEDS: SENNOSIDES/DOCUSATE SODIUM 1 TAB TABLET PO SCH (08:46)
[2020-10-05] MEDS: METHYLPREDNISOLONE SOD SUCC IV SCH ×2 (08:46→15:51)
[2020-10-05 08:51] LABS: Hematocrit 44.9 % (37.0-47.0); Hemoglobin 14.8 gm/dL (12.5-16.0); Mean Cell Volume 95.1 fl (78-100); Mean Corpuscular Hemoglobin 31.4 pg (27-31); Mean Platelet Volume 11.1 fl (8-12.5); Neutrophil # 15.5 K/mm3 (1.3-6.0); Neutrophil % 83.7 % (42-75.0); Platelet Count 295 K/mm3 (150-450); Red Blood Count 4.72 M/mm3 (4.2-5.4); Red Cell Distribution Width 13.2 % (11.5-14.0); White Blood Count 18.5 K/mm3 (4.0-10.5)
[2020-10-05 09:03] LABS: BUN/Creatinine Ratio 13.9 (9.0-21.6); Calcium * 11.5 mg/dL (7.9-10.9); Carbon Dioxide 27.1 mmol/L (24-32.6); Estimated Creat Clear 77.5; Potassium 4.1 mmol/L (3.4-4.6)
[2020-10-05] MEDS: ENOXAPARIN SODIUM 40 MG/0.4 ML SYRG SC SCH (13:56)
[2020-10-05 16:53] VITALS: BP 132/87
[2020-10-12] MEDS ORDERED: [UNRECOGNIZED DRUG - OTHER] IJ SCH (15:30)
== END 2020-10-05 17:10 | disposition home health service (06) | DRG 59 ==
LOC: ER 22:45 → MS 10-03 02:04
PROVIDERS: ADMIT Internal Medicine; ATTEND Internal Medicine

== ENCOUNTER 2020-10-17 20:43 | Inpatient (IN) ==
--- NOTE | 2020-10-17 21:08 | ERNOTE ---
Neuro HPI ER Record Presenting Symptoms: weakness Time Seen by Provider: 10/17/20 20:44 Source: patient Exam Limitations: no limitations Immunizations: IMMUNIZATION HX Immunizations Up to Date Yes History of Influenza Vaccine Yes Hx Pneumococcal Vaccination No Allergies/Adverse Reactions: Allergies Allergy/AdvReac Type Severity Reaction Status Date / Time dog dander Allergy Verified 10/17/20 21:06 glatiramer acetate Allergy Verified 10/17/20 21:06 [From Copaxone] grass pollen Allergy Verified 10/17/20 21:06 latex Allergy Verified 10/17/20 21:06 mold Allergy Verified 10/17/20 21:06 pollen extracts Allergy Verified 10/17/20 21:06 tree and shrub pollen Allergy Verified 10/17/20 21:06 bupropion HCl AdvReac Mild tremors Verified 10/17/20 21:06 [From Wellbutrin] cat dander AdvReac Verified 10/17/20 21:06 cocoa AdvReac Vomiting Verified 10/17/20 21:06 Home Medications: HOME MEDICATIONS Cholecalciferol (Vitamin D3) [Vitamin D3] 4,000 unit PO DAILY 05/12/16 [Last Taken 05/10/18] L.acidoph,Paracasei, B.lactis [Probiotic] 1 ea PO DAILY 05/12/16 [Last Taken 05/10/18] Multivitamin [One Daily Essential] 1 ea PO DAILY 05/12/16 [Last Taken 05/10/18] Baclofen 20 mg PO TID 02/06/17 [Last Taken Unknown] Linaclotide [Linzess] 145 mcg PO DAILY 05/10/18 [Last Taken 05/10/18] Cyanocobalamin (Vitamin B-12) [Vitamin B-12] 3,500 mcg PO DAILY 05/24/18 [Last Taken Unknown] Polyethylene Glycol 3350 [Miralax] 17 gm PO DAILY 05/24/18 [Last Taken Unknown] Vitamin B Complex 1 ea PO DAILY 05/24/18 [Last Taken Unknown] Melatonin 10 mg PO DAILY 09/15/18 [Last Taken Unknown] Montelukast Sodium [Singulair] 10 mg PO DAILY 11/08/18 [Last Taken Unknown] Peginterferon Beta-1A [Plegridy Pen] 94 mcg SQ .Q OTHER WEEK 11/08/18 [Last Taken 11/06/18 20:00] Sennosides/Docusate Sodium [Senna Plus Tablet] 1 ea PO DAILY 11/08/18 [Last Taken Unknown] Docusate Sodium [Colace] 200 mg PO BID 11/09/18 [Last Taken Unknown] Albuterol Sulfate [Albuterol Sulfate Hfa] 8.5 gm IH Q6H PRN 12/03/18 [Last Taken Unknown] Acetaminophen [Tylenol] 1,000 mg PO Q6H 02/09/20 [Last Taken Unknown] Loratadine [Claritin] 10 mg PO DAILY 02/09/20 [Last Taken Unknown] venlafaxine 75 mg tablet,extended release 24 hr 75 mg PO DAILY #90 tab 04/14/20 [Last Taken Unknown] venlafaxine 150 mg capsule,extended release 24 hr 150 mg PO DAILY #90 cap 05/24/20 [Last Taken Unknown] Cefdinir [Omnicef] 300 mg PO Q12H #8 cap 10/05/20 [Last Taken Unknown] lorazepam 0.5 mg tablet 0.5 mg PO BID PRN #60 tab 10/08/20 [Last Taken Unknown] Cetirizine HCl [All Day Allergy] 10 mg PO DAILY 10/17/20 [Last Taken Unknown] Fluticasone Propionate [Flonase] 2 spray NS DAILY 10/17/20 [Last Taken Unknown] HYDROcodone/ACETAMINOPHEN [Hydrocodone-Acetamin 5-325 mg] 1 ea PO QID 10/17/20 [Last Taken Unknown] guaiFENesin [Mucinex] 600 mg PO BID 10/17/20 [Last Taken Unknown] hydrOXYzine HCL [Atarax] 25 mg PO Q4H PRN 10/17/20 [Last Taken Unknown] - History of Present Illness Narrative: Patient presents by ambulance with left-sided weakness. CVA alert was called although patient has complicating conditions of MS and recent UTI with sepsis. Patient significant other did arrive after the patient had gone to CT and stated that last time she seen normal was midmorning this morning and that by noon she was not feeling well and had a temperature of 101.5. Onset: gradual onset Severity: moderate - Character of Deficits New weakness: Present: LUE, LLE Altered sensation: Present: LUE, LLE Baseline Cognition: Present: alert, oriented x 4 Associated Symptoms: Reports: fever/chills Review of Systems - Review of Systems Constitutional: Present: recent illness, fever EYE: Absent: vision changes Respiratory: Absent: shortness of breath, cough Cardiology: Absent: chest pain, palpitations Gastrointestinal/Abdominal: Absent: nausea, vomiting Musculoskeletal: Absent: back pain, muscle pain Skin: Absent: rash Neurological: Present: See HPI. Absent: headache, dizziness/light-headedness Endocrine: Absent: excessive sweating Medical History (Last Reviewed 10/17/20 @ 21:01 by Roby Madden DO) Overdose (Acute) Suicide attempt by drug ingestion (Acute) Multiple sclerosis, primary progressive (Chronic) Depression (Chronic) Contusion of head (Acute) Contusion of left elbow (Acute) Migraine headache (Acute) Depressed mood (Acute) Multiple sclerosis (Chronic) Enuresis (Acute) Tremor (Acute) Muscle spasm of back (Acute) UTI (urinary tract infection) (Suspected) Neurogenic bladder (Chronic) Medication reaction (Acute) Multiple sclerosis exacerbation (Acute) Brain concussion (Acute) Urinary bladder incontinence (Chronic) Minor head trauma (Acute) Slurred speech (Acute) Swallowing difficulty (Acute) Leukocytosis (Acute) Viral gastroenteritis (Acute) Exacerbation of multiple sclerosis (Acute) Cough (Acute) Eye foreign body (Acute) Headache (Acute) Headache (Acute) Anxiety (Acute) Prolonged menstruation (Acute) Paronychia of finger (Acute) Vaginitis (Acute) Otitis media (Acute) Acute dermatitis (Acute) Tooth abscess (Acute) MRSA (methicillin resistant Staphylococcus aureus) infection (Acute) Asthma (Chronic) Abscess (Acute) Hidradenitis (Acute) Sinusitis (Acute) Cellulitis (Acute) Bronchitis (Acute) Blood in stool (Acute) Hordeolum externum (stye) (Acute) Allergic conjunctivitis (Acute) Dependent rubor (Acute) Cellulitis and abscess of upper arm and forearm (Acute) Ecchymosis (Acute) Peripheral edema (Acute) Depression (Acute) Anxiety (Acute) Headache (Acute) Restless leg syndrome (Acute) Otitis media with effusion (Acute) Abrasion, elbow w/o infection (Acute) Muscle strain (Acute) Pneumonia (Acute) Vomiting (Acute) Constipation (Acute) Catheter-associated urinary tract infection (Acute) Bladder spasms (Acute) Abdominal pain (Acute) Vasovagal episode (Acute) Yeast UTI (Acute) Generalized weakness (Acute) Sepsis (Resolved) Altered mental status, unspecified (Resolved) Fever (Resolved) Sepsis (Suspected) SIRS (systemic inflammatory response syndrome) (Resolved) Hypotension (Resolved) Hypokalemia (Resolved) Major depression (Chronic) Borderline personality disorder (Chronic) Suprapubic catheter (Chronic) Aplasia of uterus Frequent UTI History of hysteroscopy History of hysteroscopy MRSA (methicillin resistant staph aureus) culture positive MS Painful bladder spasm (Inactive) UTI (urinary tract infection) (Inactive) Surgical History: Surgical History (Last Reviewed 10/17/20 @ 21:01 by Roby Madden DO) History of appendectomy (Acute) H/O cystoscopy Family History: Family History (Last Reviewed 10/17/20 @ 21:01 by Roby Madden DO) Other No pertinent family history Social History: (Last Reviewed 10/17/20 @ 21:01 by Roby Madden DO) Social History: longterm: No Marital status: Single household members: significant other number of children: 1 current occupational status: disabled Highest level of school completed/degree received: Master's degree Service: No Tobacco: Smoking Status: Former smoker Smoking End Date: 10/02/20 Tobacco: How many years used: 16 how long ago did patient quit smoking: yesterday second hand exposure: Yes Alcohol: alcohol intake: former Alcohol type: beer Substance Use: substance use type: does not use Dietary Habits: caffeine: Yes Exercise: Physical activity functional status: wheelchair user Physical Exam - Physical Exam General Appearance: Present: wd/wn, alert, mild distress Head Exam: Present: normal inspection, no evidence of injury Eye Exam: PERRL: bilateral, Abnormal EOM: bilateral - Reduced gaze towards the left Neck: Present: normal inspection, nontender Respiratory: Present: no respiratory distress, normal breath sounds, lungs clear Cardiovascular/Chest: Present: no murmur, tachycardia Gastrointestinal/Abdominal: Present: normal bowel sounds, nontender, nondiste nded Extremity Exam: Present: normal except - - Left-sided weakness. Absent: calf tenderness, bony tenderness, joint redness Neurological Exam: Present: alert, motor weakness - Left arm, left leg Skin Exam: Present: normal color, warm/dry Lymphatic Exam: Present: no adenopathy Pinson Coma Scale - Assess Eye Opening: Spontaneous Motor: Obeys Commands Verbal: Oriented - Total Coma Scale Total: 15 Initial Stroke Assessment - Date/Time of assessment Stroke Scale Date: 10/17/20 Stroke Scale Time: 20:43 - NIH Stroke Scale Level of Consciousness: Alert LOC Questions (Year and Age): Answers both correctly LOC Commands (open/close eyes/fist): Performs both correctly Lateral Gaze Paresis: Partial paresis one/both Visual Field Loss: No visual loss Facial Palsy: Minor paralysis Right Arm Motor (10 sec hold): No drift Left Arm Motor (10 sec hold): Drift, effort made Right Leg Motor (5 sec hold): No drift Left Leg Motor (5 sec hold): No effort, limb falls Limb Ataxia (finger/nose heel/michaels): Present in 2 limbs If present, ataxia in:: Left arm, Left leg Sensory Loss (pinprick arms/legs/face): Mild, aware yet dulled Language Aphasia (description/naming/reading): Mild, yet understandable Dysarthria (speech clarity): Slurring, intelligeble - at her baseline Neglect Inattention (visual/tactile/auditory/spatial/person): No neglect Initial Stroke Scale Score:: 12 - Stroke Risk Assessment Stroke Risk Assessment Level: 5-15 Mild-Mod Severe Imp - Patient has significant baseline deficits and although she seems worse today timeframe would be in the 8 to 10-hour range from onset and I do not believe this is CVA related. Progress - Results and Orders Patient's Lab Results:: I have reviewed the patient's lab results. - Vital Signs Patient's Vital Signs:: I have reviewed the patient's vital signs. - EKG EKG #1 EKG: supraventricular tachycardia - sinus, no ST T wave changes EKG read: Interp. by me - CT/Ultrasound CT/Ultrasound Narrative: CT head: IMPRESSION: FOCAL HYPODENSITY IN THE LEFT SIDE OF THE MIDBRAIN/SILVIA WHICH IS NEW FROM THE PRIOR 2019 EXAM WHICH COULD REPRESENT AN ACUTE INFARCT. RECOMMEND FOLLOW-UP MRI TO CONFIRM. Preliminary report was provided by [facility] on 10/17/2020 at 9:12 PM. Electronically signed by Maverick Henderson D.O.. - Progress/Reassessment Progress:: Improved Progress Note-Subjective: 10/17/20 23:03 I spoke to the stroke team Dr. Dick at [facility]. He states that most likely this is an MS flare along with her illness and we were comfortable with treating her MS flare we could do that here as there would be no treatment for acute stroke with the timeframe it has been for her. Suggested a CTA to differentiate between the MS flare and acute silvia stroke. 10/17/20 23:[address] Melvin she agrees with admission for sepsis and UTI and agrees with CTA either tonight or tomorrow morning. 10/18/20 00:28 I have decided not to do the CTA tonight due to many factors, the patient's GFR being just below the cutoff, not being able to get an 18-gauge so the study will not be optimal anyway and our MRI has open slots in the morning and will give us more information. Departure Clinical Impression: Multiple sclerosis, primary progressive UTI (urinary tract infection) Qualifiers: Urinary tract infection type: acute pyelonephritis Qualified Code(s): N10 - Acute pyelonephritis Sepsis Qualifiers: Sepsis type: sepsis due to unspecified organism Sepsis acute organ dysfunction status: with acute organ dysfunction Severe sepsis acute organ dysfunction type: unspecified Severe sepsis shock status: without septic shock Qualified Code(s): A41.9 - Sepsis, unspecified organism - Departure Disposition: Still a patient Condition: Good
[2020-10-17 21:15] LABS: Urine Bilirubin Negative (NEGATIVE); Urine Blood 50 /ul (NEGATIVE); Urine Ketone Negative (NEGATIVE); Urine Protein 15 mg/dL (NEGATIVE); Urine Specific Gravity 1.025 SP.GR. (1.005-1.010); Urine Urobilinogen Normal (NORMAL)
[2020-10-17 21:27] LABS: Hematocrit 50.7 % (37.0-47.0); Hemoglobin 16.1 gm/dL (12.5-16.0); Mean Corpuscular Hemoglobin 30.5 pg (27-31); Mean Corpuscular Hgb Conc 31.8 g/dl (32-36); Platelet Count 257 K/mm3 (150-450); Red Blood Count 5.28 M/mm3 (4.2-5.4); Red Cell Distribution Width 13.2 % (11.5-14.0); White Blood Count 19.2 K/mm3 (4.0-10.5)
[2020-10-17 21:30] LABS: Urine Appearance Slightly Cloudy (CLEAR); Urine Color Yellow; Urine Nitrite Positive (NEGATIVE)
[2020-10-17 21:31] LABS: Urine Bacteria TRACE; Urine RBC 0-5 /hpf (0-5); Urine Renal Epithelial Cell Few - 1+ /hpf; Urine WBC >50 /hpf (0-5)
[2020-10-17 21:31] LABS: Total Cells Counted 100
[2020-10-17 21:43] LABS: Atypical (Reactive) Lymph 6 % (0-2); Lymphocyte 6 % (20-51); Monocyte 3 % (0-9); Neutrophil 85 % (42-75); Neutrophil # 16.3 K/mm3 (1.3-6.0); Platelet Estimate Normal (NORMAL); RBC Morphology Normal (NORMAL)
[2020-10-17 21:45] LABS: Albumin * 3.6 gm/dl (3.4-5.0); Anion Gap 15.7 mmol/L (6.8-13.8); BUN/Creatinine Ratio 5.7 (9.0-21.6); Bilirubin, Total 0.5 mg/dL (0.0-1.1); Ca. Corrected For Albumin 11.4 mg/dL (8.4-10.2); Calcium * 11.4 mg/dL (7.9-10.9); Carbon Dioxide 25.8 mmol/L (24-32.6); Potassium 4.5 mmol/L (3.4-4.6); Total Protein 8.4 gm/dL (6.2-8.2)
[2020-10-17 21:54] LABS: INR 0.96 INR (0.92-1.08); Partial Thrombolplastin Time 24.9 Seconds (24-32)
[2020-10-17] MEDS ORDERED: cefTRIAXone SODIUM 1,000 MG/100 ML BAG IV ONE (22:05)
[2020-10-17] MEDS: NORMAL SALINE 1,000 ML IV PRN (22:23)
[2020-10-17] MEDS ORDERED: ACETAMINOPHEN 1,000 MG/100 ML BTL IV ONE (23:16)
[2020-10-18] MEDS: NORMAL SALINE 1,000 ML IV PRN ×3 (00:41→02:57)
[2020-10-18] MEDS ORDERED: ACETAMINOPHEN 1,000 MG/100 ML BTL IV PRN (10:21)
[2020-10-18] MEDS ORDERED: NORMAL SALINE 1,000 ML IV ONE (10:27)
[2020-10-18] MEDS ORDERED: BUDESONIDE 0.5 MG/2 ML VIAL.NEB IH PRN (10:28)
[2020-10-18] MEDS ORDERED: ALBUTEROL SULFATE 2.5 MG/0.5 ML VIAL.NEB IH PRN (10:28)
[2020-10-18] MEDS ORDERED: HYDROcodone/ACETAMINOPHEN 1 EACH TABLET PO PRN (10:30)
[2020-10-18] MEDS ORDERED: FLUTICASONE FUROATE 50 MCG INH SCH (10:30)
[2020-10-18] MEDS ORDERED: PROMETHAZINE HCL 25 MG TABLET PO PRN (10:30)
[2020-10-18] MEDS ORDERED: [UNRECOGNIZED DRUG - OTHER] SQ SCH (10:30)
[2020-10-18] MEDS ORDERED: hydrOXYzine HCL 25 MG TABLET PO PRN (10:30)
[2020-10-18] MEDS ORDERED: TIOTROPIUM BROMIDE 5 CAP INHALER IH PRN (10:30)
[2020-10-18] MEDS ORDERED: LORATADINE 10 MG PO SCH (10:45)
--- NOTE | 2020-10-18 11:16 | HP ---
Chief Complaint - Chief Complaint Date of Service: 10/18/20 Time of Service: 10:59 Chief Complaint: Patient is somnolent and sedated, she is nonverbal the moment. History of Present Illness: 39-year-old female with past medical history of multiple sclerosis, morbid obesity, depression, anxiety disorder, bronchial asthma, RLS, and seasonal allergies was brought to the ER last night due to left-sided weakness and increasing confusion. The patient was also noted to be nonverbal and unresponsive to spoken language. Initially CVA was suspected however all imaging of her brain has been negative, in fact MRI suggested a possible flareup of her MS. The patient was hospitalized here at our institution over a week ago for similar episode and was diagnosed with a UTI due to an infected indwelling suprapubic Thapa catheter. She was scheduled for removal and replacement of the catheter however became ill before making the appointment. During the hospitalization the patient was treated with medications recommended by her neurologist at the [facility] who diagnosed the patient with MS flare. Subsequent urine culture confirmed growth of Klebsiella and so the patient was treated with antibiotics. However now she is febrile she is tachycardic and septic so she will need IV hydration as well as IV antibiotics which have all been started since last night. We will attempted contact her neurologist for further recommendations in order to decide how to proceed. Medical History (Last Reviewed 10/18/20 @ 01:57 by Maricel Ellis RN) Overdose (Acute) Suicide attempt by drug ingestion (Acute) Multiple sclerosis, primary progressive (Chronic) Depression (Chronic) Contusion of head (Acute) Contusion of left elbow (Acute) Migraine headache (Acute) Depressed mood (Acute) Multiple sclerosis (Chronic) Enuresis (Acute) Tremor (Acute) Muscle spasm of back (Acute) UTI (urinary tract infection) (Suspected) Neurogenic bladder (Chronic) Medication reaction (Acute) Multiple sclerosis exacerbation (Acute) Brain concussion (Acute) Urinary bladder incontinence (Chronic) Minor head trauma (Acute) Slurred speech (Acute) Swallowing difficulty (Acute) Leukocytosis (Acute) Viral gastroenteritis (Acute) Exacerbation of multiple sclerosis (Acute) Cough (Acute) Eye foreign body (Acute) Headache (Acute) Headache (Acute) Anxiety (Acute) Prolonged menstruation (Acute) Paronychia of finger (Acute) Vaginitis (Acute) Otitis media (Acute) Acute dermatitis (Acute) Tooth abscess (Acute) MRSA (methicillin resistant Staphylococcus aureus) infection (Acute) Asthma (Chronic) Abscess (Acute) Hidradenitis (Acute) Sinusitis (Acute) Cellulitis (Acute) Bronchitis (Acute) Blood in stool (Acute) Hordeolum externum (stye) (Acute) Allergic conjunctivitis (Acute) Dependent rubor (Acute) Cellulitis and abscess of upper arm and forearm (Acute) Ecchymosis (Acute) Peripheral edema (Acute) Depression (Acute) Anxiety (Acute) Headache (Acute) Restless leg syndrome (Acute) Otitis media with effusion (Acute) Abrasion, elbow w/o infection (Acute) Muscle strain (Acute) Pneumonia (Acute) Vomiting (Acute) Constipation (Acute) Catheter-associated urinary tract infection (Acute) Bladder spasms (Acute) Abdominal pain (Acute) Vasovagal episode (Acute) Yeast UTI (Acute) Generalized weakness (Acute) Sepsis (Resolved) Altered mental status, unspecified (Resolved) Fever (Resolved) Sepsis (Suspected) SIRS (systemic inflammatory response syndrome) (Resolved) Hypotension (Resolved) Hypokalemia (Resolved) Major depression (Chronic) Borderline personality disorder (Chronic) Suprapubic catheter (Chronic) Aplasia of uterus Frequent UTI History of hysteroscopy History of hysteroscopy MRSA (methicillin resistant staph aureus) culture positive MS Painful bladder spasm (Inactive) UTI (urinary tract infection) (Inactive) Surgical History: Surgical History (Last Reviewed 10/18/20 @ 01:57 by Maricel Ellis RN) History of appendectomy (Acute) H/O cystoscopy Family History: Family History (Last Reviewed 10/18/20 @ 01:57 by Maricel Ellis RN) Other No pertinent family history Social History: (Last Reviewed 10/18/20 @ 01:57 by Maricel Ellis RN) Social History: assisted: No Marital status: Single household members: significant other number of children: 1 current occupational status: disabled Highest level of school completed/degree received: Master's degree Service: No Tobacco: Smoking Status: Former smoker Smoking End Date: 10/02/20 Tobacco: How many years used: 16 how long ago did patient quit smoking: yesterday second hand exposure: Yes Alcohol: alcohol intake: former Alcohol type: beer Substance Use: substance use type: does not use Dietary Habits: caffeine: Yes Exercise: Physical activity functional status: wheelchair user Peds Patient Hx - Developmental: No Pertinent Hx Peds Patient Hx - Medical: Other - Multiple sclerosis Peds Patient Hx - Cardiac/Respiratory: Asthma Peds Patient Hx - Surgical: No Surgical History Patient History - Cancer: No Hx of Cancer Review Of Systems (GEN) - Review of Systems Generalized/Overall Review: Present: Weakness, Fever EENTM: Present: No Symptoms Reported Respiratory: Present: No Symptoms Reported Cardiac: Present: No Symptoms Reported Abdominal: Present: No Symptoms Reported Genitourinary: Present: No Symptoms Reported Musculoskeletal: Present: No Symptoms Reported Neurological: Present: Pre-existing Deficit, Other - Left-sided weakness and increasing confusion Skin: Present: No Symptoms Reported Endocrine: Present: No Symptoms Reported Immunizations: IMMUNIZATION HX Immunizations Up to Date Yes Immunizations Comment Full COVID vaccine History of Influenza Vaccine Yes Hx Pneumococcal Vaccination No Allergies/Adverse Reactions: Allergies Allergy/AdvReac Type Severity Reaction Status Date / Time dog dander Allergy Verified 10/17/20 21:06 glatiramer acetate Allergy Verified 10/17/20 21:06 [From Copaxone] grass pollen Allergy Verified 10/17/20 21:06 latex Allergy Verified 10/17/20 21:06 mold Allergy Verified 10/17/20 21:06 pollen extracts Allergy Verified 10/17/20 21:06 tree and shrub pollen Allergy Verified 10/17/20 21:06 bupropion HCl AdvReac Mild tremors Verified 10/17/20 21:06 [From Wellbutrin] cat dander AdvReac Verified 10/17/20 21:06 cocoa AdvReac Vomiting Verified 10/17/20 21:06 Home Medications: HOME MEDICATIONS Cholecalciferol (Vitamin D3) [Vitamin D3] 4,000 unit PO DAILY 05/12/16 [Last Taken 05/10/18] Multivitamin [One Daily Essential] 1 ea PO DAILY 05/12/16 [Last Taken 05/10/18] Baclofen 20 mg PO BID 02/06/17 [Last Taken Unknown] Linaclotide [Linzess] 145 mcg PO DAILY 05/10/18 [Last Taken 05/10/18] Polyethylene Glycol 3350 [Miralax] 17 gm PO DAILY PRN 05/24/18 [Last Taken Unknown] Vitamin B Complex 1 ea PO DAILY 05/24/18 [Last Taken Unknown] Montelukast Sodium [Singulair] 10 mg PO DAILY 11/08/18 [Last Taken Unknown] Peginterferon Beta-1A [Plegridy Pen] 94 mcg SQ .Q OTHER WEEK 11/08/18 [Last Taken 11/06/18 20:00] Sennosides/Docusate Sodium [Senna Plus Tablet] 1 ea PO DAILY PRN 11/08/18 [Last Taken Unknown] Docusate Sodium [Colace] 200 mg PO BID 11/09/18 [Last Taken Unknown] Albuterol Sulfate [Albuterol Sulfate Hfa] 8.5 gm IH Q6H PRN 12/03/18 [Last Taken Unknown] Acetaminophen [Tylenol] 1,000 mg PO Q6H PRN MDD 4000 02/09/20 [Last Taken Unknown] Loratadine [Claritin] 10 mg PO DAILY 02/09/20 [Last Taken Unknown] venlafaxine 75 mg tablet,extended release 24 hr 75 mg PO DAILY #90 tab 04/14/20 [Last Taken Unknown] venlafaxine 150 mg capsule,extended release 24 hr 150 mg PO DAILY #90 cap 05/24/20 [Last Taken Unknown] Cetirizine HCl [All Day Allergy] 10 mg PO DAILY 10/17/20 [Last Taken Unknown] Fluticasone Propionate [Flonase] 2 spray NS DAILY 10/17/20 [Last Taken Unknown] HYDROcodone/ACETAMINOPHEN [Hydrocodone-Acetamin 5-325 mg] 1 ea PO QID PRN 10/17/20 [Last Taken Unknown] guaiFENesin [Mucinex] 1,200 mg PO BID 10/17/20 [Last Taken Unknown] hydrOXYzine HCL [Atarax] 25 mg PO Q4H PRN 10/17/20 [Last Taken Unknown] Budesonide [Pulmicort Respules] BID PRN 10/18/20 [Last Taken Unknown] Fluticasone Furoate 50 mcg INH DAILY 10/18/20 [Last Taken Unknown] Gdqwgiuawc-Xeufiscywk-Pmrwbspd 1 tab QDIPM PRN 10/18/20 [Last Taken Unknown] LORazepam [Ativan] 1 mg PO BID PRN 10/18/20 [Last Taken Unknown] Medroxyprogesterone Acetate 10/18/20 [Last Taken Unknown] Metamucil Fiber Singles Packet 1 packet QDIPM 10/18/20 [Last Taken Unknown] Modafinil 1 tab QDIPM 10/18/20 [Last Taken Unknown] Promethazine HCl 25 mg QDIPM PRN 10/18/20 [Last Taken Unknown] Spiriva Respimat 2.5 mcg/inhalation 2 puff PRN 10/18/20 [Last Taken Unknown] Zinc 1 tab QDIPM 10/18/20 [Last Taken Unknown] Exam - Exam Vital Signs: Vital Signs - Last Taken Temp 103.1 C H 10/18/20 10:00 Pulse 135 H 10/18/20 10:00 Resp 20 10/18/20 10:00 BP 156/60 H 10/18/20 10:00 Pulse Ox 97 10/18/20 10:00 Constitutional: Present: No distress, Lethargic, Somnolent, Morbidly obese Eye Exam: bilateral eye: other - Dilated pupils bilaterally Neck: Present: non-tender Breasts: Present: Exam deferred Respiratory: Present: chest non-tender, lungs clear, normal breath sounds, no respiratory distress, no accessory muscle use Cardiovascular/Chest: Present: normal peripheral pulses, regular rate, rhythm, no chest tenderness, no edema, no gallop, no JVD, no murmur, no rub Abdomen: Present: Normal bowel sounds, soft, nontender, nondistended, no rebound tenderness, no hepatospenomegaly, no masses, obese /Rectal: Present: Other - Indwelling suprapubic Thapa catheter in place Extremity: Present: non-tender, no pedal edema, no calf tenderness, normal capillary refill, pelvis stable Skin Exam: Present: normal color, warm/dry, no cyanosis Lymphatic: Present: no adenopathy Neurologic: Present: aphasia, other - Neurological evaluation was not possible due to the patient being overly sedated, patient is not able to follow commands making the evaluation difficult. At the moment she appears to have left-sided weakness in upper and lower extremities. Sensation cannot be determined. Appearance: Present: disheveled Eye contact: Present: avoids eye contact Thoughts: Present: other Diagnostic Studies: Abnormal Lab Results 10/17/20 10/17/20 10/17/20 Range/Units 21:00 21:15 21:20 WBC 19.2 H (4.0-10.5) K/mm3 Hgb 16.1 H (12.5-16.0) gm/dL Hct 50.7 H (37.0-47.0) % MCHC 31.8 L (32-36) g/dl Neutrophils % (Manual) 85 H (42-75) % Lymphocytes % (Manual) 6 L (20-51) % Neutrophils # (Manual) 16.3 H (1.3-6.0) K/mm3 Lymphocytes # (Manual) 1.2 L (1.5-3.5) k/mm3 Atypic/Reactive Lymphs 6 H (0-2) % ESR (0-15) mm/hr Anion Gap 15.7 H (6.8-13.8) mmol/L Creatinine 1.75 H D (0.4-1.4) mg/dL Est GFR (Non-Af Amer) 34 L D (60-130) mL/min BUN/Creatinine Ratio 5.7 L (9.0-21.6) Lactic Acid, Venous (0.4-2.0) mmol/L Calcium 11.4 H (7.9-10.9) mg/dL Calcium Adj for Albumin 11.4 H (8.4-10.2) mg/dL Total Protein 8.4 H (6.2-8.2) gm/dL Urine Protein 15 H (NEGATIVE) mg/dL Urine Blood 50 H (NEGATIVE) /ul Urine Nitrate Positive H (NEGATIVE) Ur Leukocyte Esterase 100 H (NEGATIVE) /ul Urine WBC >50 H (0-5) /hpf Ur Renal Epithelial Cell Few - 1+ H (NONE) /hpf 10/17/20 10/17/20 10/17/20 Range/Units 21:20 21:20 23:55 WBC (4.0-10.5) K/mm3 Hgb (12.5-16.0) gm/dL Hct (37.0-47.0) % MCHC (32-36) g/dl Neutrophils % (Manual) (42-75) % Lymphocytes % (Manual) (20-51) % Neutrophils # (Manual) (1.3-6.0) K/mm3 Lymphocytes # (Manual) (1.5-3.5) k/mm3 Atypic/Reactive Lymphs (0-2) % ESR 38 H (0-15) mm/hr Anion Gap (6.8-13.8) mmol/L Creatinine (0.4-1.4) mg/dL Est GFR (Non-Af Amer) (60-130) mL/min BUN/Creatinine Ratio (9.0-21.6) Lactic Acid, Venous 3.0 H* 2.7 H* (0.4-2.0) mmol/L Calcium (7.9-10.9) mg/dL Calcium Adj for Albumin (8.4-10.2) mg/dL Total Protein (6.2-8.2) gm/dL Urine Protein (NEGATIVE) mg/dL Urine Blood (NEGATIVE) /ul Urine Nitrate (NEGATIVE) Ur Leukocyte Esterase (NEGATIVE) /ul Urine WBC (0-5) /hpf Ur Renal Epithelial Cell (NONE) /hpf Laboratory Results WBC 19.2 K/mm3 (4.0-10.5) H 10/17/20 21:20 RBC 5.28 M/mm3 (4.2-5.4) 10/17/20 21:20 Hgb 16.1 gm/dL (12.5-16.0) H 10/17/20 21:20 Hct 50.7 % (37.0-47.0) H 10/17/20 21:20 MCV 96.0 fl (78-100) 10/17/20 21:20 MCH 30.5 pg (27-31) 10/17/20 21:20 MCHC 31.8 g/dl (32-36) L 10/17/20 21:20 RDW 13.2 % (11.5-14.0) 10/17/20 21:20 Plt Count 257 K/mm3 (150-450) 10/17/20 21:20 MPV 11.0 fl (8-12.5) 10/17/20 21:20 Neutrophils % (Manual) 85 % (42-75) H 10/17/20 21:20 Lymphocytes % (Manual) 6 % (20-51) L 10/17/20 21:20 Monocytes % (Manual) 3 % (0-9) 10/17/20 21:20 Neutrophils # (Manual) 16.3 K/mm3 (1.3-6.0) H 10/17/20 21:20 Lymphocytes # (Manual) 1.2 k/mm3 (1.5-3.5) L 10/17/20 21:20 Monocytes # (Manual) 0.6 k/mm3 (0.0-1.0) 10/17/20 21:20 Atypic/Reactive Lymphs 6 % (0-2) H 10/17/20 21:20 Platelet Estimate Normal (NORMAL) 10/17/20 21:20 RBC Morphology Normal (NORMAL) 10/17/20 21:20 ESR 38 mm/hr (0-15) H 10/17/20 21:20 PT 10.0 Seconds (9.1-10.7) 10/17/20 21:20 INR (Anticoag Therapy) 0.96 INR (0.92-1.08) 10/17/20 21:20 PTT ([place]) 24.9 Seconds (24-32) 10/17/20 21:20 Sodium 141 mmol/L (132-142) 10/17/20 21:15 Plasma Sodium 141 mmol/L (130-142) 10/17/20 21:15 Potassium 4.5 mmol/L (3.4-4.6) 10/17/20 21:15 Chloride 104 mmol/L (97-106) 10/17/20 21:15 Carbon Dioxide 25.8 mmol/L (24-32.6) 10/17/20 21:15 Anion Gap 15.7 mmol/L (6.8-13.8) H 10/17/20 21:15 BUN 10 mg/dL (3-23) 10/17/20 21:15 Creatinine 1.75 mg/dL (0.4-1.4) H D 10/17/20 21:15 Est GFR (Non-Af Amer) 34 mL/min (60-130) L D 10/17/20 21:15 BUN/Creatinine Ratio 5.7 (9.0-21.6) L 10/17/20 21:15 Random Glucose 105 mg/dL (70-110) 10/17/20 21:15 Lactic Acid, Venous 2.7 mmol/L (0.4-2.0) H* 10/17/20 23:55 Calcium 11.4 mg/dL (7.9-10.9) H 10/17/20 21:15 Calcium Adj for Albumin 11.4 mg/dL (8.4-10.2) H 10/17/20 21:15 Total Bilirubin 0.5 mg/dL (0.0-1.1) 10/17/20 21:15 AST 19 U/L (0-48) 10/17/20 21:15 ALT 46 U/L (19-67) 10/17/20 21:15 Alkaline Phosphatase 140 U/L (50-170) 10/17/20 21:15 Total Protein 8.4 gm/dL (6.2-8.2) H 10/17/20 21:15 Albumin 3.6 gm/dl (3.4-5.0) 10/17/20 21:15 Urine Color Yellow 10/17/20 21:00 Urine Appearance Slightly cloudy (CLEAR) 10/17/20 21:00 Urine pH 6.0 pH (5.0-7.0) 10/17/20 21:00 Ur Specific [place] 1.025 SP.GR. (1.005-1.010) 10/17/20 21:00 Urine Protein 15 mg/dL (NEGATIVE) H 10/17/20 21:00 Urine Glucose (UA) Negative mg/dL (NEGATIVE) 10/17/20 21:00 Urine Ketones Negative mg/dL (NEGATIVE) 10/17/20 21:00 Urine Blood 50 /ul (NEGATIVE) H 10/17/20 21:00 Urine Nitrate Positive (NEGATIVE) H 10/17/20 21:00 Urine Bilirubin Negative mg/dl (NEGATIVE) 10/17/20 21:00 Urine Urobilinogen Normal EU/dl (NORMAL) 10/17/20 21:00 Ur Leukocyte Esterase 100 /ul (NEGATIVE) H 10/17/20 21:00 Urine RBC 0-5 /hpf (0-5) 10/17/20 21:00 Urine WBC >50 /hpf (0-5) H 10/17/20 21:00 Ur Epithelial Cells Trace /hpf (0-5) 10/17/20 21:00 Ur Renal Epithelial Cell Few - 1+ /hpf (NONE) H 10/17/20 21:00 Urine Bacteria Trace (NONE) 10/17/20 21:00 Urine Culture Comments Culture to follow 10/17/20 21:00 SARS-CoV-2 (PCR) Not detected (NotDetected) 10/17/20 23:30 Assessment/Plan - Narrative Narrative: Patient was evaluated medical chart was reviewed and decision to admit with a diagnosis of left hemiparesis, MARTA, multiple sclerosis flareup, dehydration, and recurrent UTI was made. At bedside evaluation this morning the patient was noted to be overly sedated, and nonresponsive to spoken language. When she attempts to speak she presents with aphasia and nonsensical speech, she is very difficult to understand. These neurological symptoms made a thorough evaluation difficult since she is not able to follow commands. The patient's pupils are dilated but it is difficult to determine if this is new or old for her. Subsequent brain MRI was negative for any new findings and according to the radiologist her MS is stable. The patient was hospitalized for a similar episode over a week ago but improved after being treated with medications recommended by her neurologist at the [facility], will contact him for further recommendations. In the meantime we will treat her UTI with IV antibiotics and continue IV hydration. All other routine medications were resumed. Labs were ordered for tomorrow morning for reevaluation of leukocytosis and renal function given her acute renal injury. - Assessment/Plan (1) Sepsis Problem: Acute Qualifiers: Sepsis type: sepsis due to unspecified organism Sepsis acute organ dysfunction status: with acute organ dysfunction Severe sepsis acute organ dysfunction type: unspecified Severe sepsis shock status: without septic shock Qualified Code(s): A41.9 - Sepsis, unspecified organism; R65.20 - Severe sepsis without septic shock (2) Multiple sclerosis, primary progressive Problem: Chronic (3) Depression Problem: Chronic (4) Multiple sclerosis Problem: Chronic (5) Neurogenic bladder Problem: Chronic (6) Multiple sclerosis exacerbation Problem: Acute (7) Leukocytosis Problem: Acute Qualifiers: (8) Anxiety Problem: Acute (9) Asthma Problem: Chronic (10) Morbid obesity Problem: Acute (11) Suprapubic catheter Problem: Acute (12) Recurrent UTI Problem: Acute (13) MARTA (acute kidney injury) Problem: Acute (14) Altered mental status Problem: Acute
[2020-10-18] MEDS: MULTIVITAMINS 1 CAP CAPSULE PO SCH (11:43)
[2020-10-18] MEDS: BACLOFEN 10 MG TABLET PO SCH ×2 (11:44→20:28)
[2020-10-18] MEDS: MONTELUKAST SODIUM 10 MG TABLET PO SCH (11:44)
[2020-10-18] MEDS: DOCUSATE SODIUM 100 MG CAPSULE PO SCH ×2 (11:44→20:29)
[2020-10-18] MEDS: FLUTICASONE PROPIONATE 120 SPRAY INHALER NS SCH (11:44)
[2020-10-18] MEDS: VITAMIN B COMP W-C 1 TAB TABLET PO SCH (11:44)
[2020-10-18] MEDS: LORATADINE 10 MG TABLET PO SCH (11:44)
[2020-10-18] MEDS: CHOLECALCIFEROL 1,000 UNIT CAPSULE PO SCH (11:45)
[2020-10-18] MEDS: VENLAFAXINE HCL 150 MG CAP.SR.24H PO SCH (11:45)
[2020-10-18] MEDS: VENLAFAXINE HCL 37.5 MG CAP.SR.24H PO SCH (11:45)
[2020-10-18] MEDS: NORMAL SALINE IV SCH ×2 (12:11→20:30)
[2020-10-18] MEDS: METHYLPREDNISOLONE SOD SUCC IV SCH ×2 (12:11→20:30)
[2020-10-18] MEDS: ENOXAPARIN SODIUM 40 MG/0.4 ML SYRG SC SCH (12:12)
[2020-10-18] MEDS ORDERED: LIDOCAINE HCL 50 ML VIAL IM ONE (13:23)
[2020-10-18] MEDS: ZINC SULFATE 220 MG CAPSULE PO SCH (16:57)
[2020-10-18] MEDS: PANTOPRAZOLE SODIUM 20 MG TABLET.DR PO SCH (20:29)
[2020-10-19 06:29] LABS: Hematocrit 37.4 % (37.0-47.0); Hemoglobin 12.3 gm/dL (12.5-16.0); Mean Cell Volume 95.2 fl (78-100); Mean Corpuscular Hemoglobin 31.3 pg (27-31); Mean Corpuscular Hgb Conc 32.9 g/dl (32-36); Mean Platelet Volume 11.2 fl (8-12.5); Neutrophil # 18.4 K/mm3 (1.3-6.0); Platelet Count 194 K/mm3 (150-450); Red Blood Count 3.93 M/mm3 (4.2-5.4); Red Cell Distribution Width 13.3 % (11.5-14.0)
[2020-10-19 06:46] LABS: BUN/Creatinine Ratio 12.6 (9.0-21.6)
[2020-10-19 06:47] LABS: Albumin * 2.3 gm/dl (3.4-5.0); Anion Gap 13.4 mmol/L (6.8-13.8); Bilirubin, Total 0.2 mg/dL (0.0-1.1); Ca. Corrected For Albumin 11.7 mg/dL (8.4-10.2); Calcium * 10.7 mg/dL (7.9-10.9); Carbon Dioxide 23.4 mmol/L (24-32.6); Potassium 3.8 mmol/L (3.4-4.6); Total Protein 6.3 gm/dL (6.2-8.2)
[2020-10-19] MEDS: PANTOPRAZOLE SODIUM 20 MG TABLET.DR PO SCH ×2 (07:06→21:05)
[2020-10-19] MEDS: CHOLECALCIFEROL 1,000 UNIT CAPSULE PO SCH (08:47)
[2020-10-19] MEDS: METHYLPREDNISOLONE SOD SUCC IV SCH ×2 (08:47→21:19)
[2020-10-19] MEDS: NORMAL SALINE IV SCH ×2 (08:47→21:19)
[2020-10-19] MEDS: VITAMIN B COMP W-C 1 TAB TABLET PO SCH (08:48)
[2020-10-19] MEDS: VENLAFAXINE HCL 37.5 MG CAP.SR.24H PO SCH (08:48)
[2020-10-19] MEDS: BACLOFEN 10 MG TABLET PO SCH ×2 (08:49→21:04)
[2020-10-19] MEDS: DOCUSATE SODIUM 100 MG CAPSULE PO SCH ×2 (08:50→21:04)
[2020-10-19] MEDS: LORATADINE 10 MG TABLET PO SCH (08:50)
[2020-10-19] MEDS: FLUTICASONE PROPIONATE 120 SPRAY INHALER NS SCH (08:51)
[2020-10-19] MEDS: VENLAFAXINE HCL 150 MG CAP.SR.24H PO SCH (08:51)
[2020-10-19] MEDS: MONTELUKAST SODIUM 10 MG TABLET PO SCH (08:52)
[2020-10-19] MEDS: MULTIVITAMINS 1 CAP CAPSULE PO SCH (08:52)
--- NOTE | 2020-10-19 09:28 | PN ---
Subjective - Date and Time Seen Date: 10/19/20 Time: 09:20 Subjective Narrative: I feel better. Objective Objective Narrative: 39-year-old female admitted for an acute multiple sclerosis flare, dehydration, recurrent UTI, and now bacteremia was evaluated at bedside this morning was found to be afebrile and in no acute distress. Patient was started on IV steroids yesterday morning and after the first dose she suddenly woke up and all of her neurological symptoms resolved. She now is able to move her upper and lower extremity and sensation is intact. The patient denied any headaches fogginess or any lightheadedness and says she feels much better. The issue now is that she is growing a gram-negative evelina on blood cultures, this most likely is a same Klebsiella that she is growing in urine. As a precaution we will add IV vancomycin for additional coverage of her bacteremia. The patient has had no recurrence of fever or chills and is tolerating oral intake without any issues. Labs this morning showed an increase in her leukocytosis, however this is not surprising given the high dose of steroids she is receiving. We will continue to follow closely. - Review of Systems Generalized/Overall Review: Reports: No Symptoms Reported EENTM: Reports: No Symptoms Reported Respiratory: Reports: No Symptoms Reported Cardiac: Reports: No Symptoms Reported Abdominal: Reports: No Symptoms Reported Genitourinary Symptoms: Reports: No Symptoms Reported Musculoskeletal Complaints: Reports: No Symptoms Reported Neurological: Reports: Pre-existing Deficit Skin: Reports: No Symptoms Reported Endocrine: Reports: No Symptoms Reported - Vitals Vitals: Last Vital Signs Temp 36.6 C 10/19/20 06:00 Pulse 78 10/19/20 06:00 Resp 20 10/19/20 06:00 BP 99/53 10/19/20 06:00 Pulse Ox 96 10/19/20 06:00 - Abnormal Lab Findings Abnormal Lab Findings: Abnormal Lab Results 10/19/20 10/19/20 Range/Units 06:16 06:16 WBC 21.0 H (4.0-10.5) K/mm3 RBC 3.93 L (4.2-5.4) M/mm3 Hgb 12.3 L (12.5-16.0) gm/dL MCH 31.3 H (27-31) pg Immature Gran % (Auto) 1.00 H (0.001-0.429) % Immature Gran # (Auto) 0.22 H (0.000-0.0310) K/mm3 Neutrophils % 88.0 H (42-75.0) % Lymphocytes % 7.3 L (20-51) % Neutrophils # 18.4 H (1.3-6.0) K/mm3 Sodium 144 H (132-142) mmol/L Plasma Sodium 144 H (130-142) mmol/L Chloride 111 H (97-106) mmol/L Carbon Dioxide 23.4 L (24-32.6) mmol/L Est GFR (Non-Af Amer) 58 L D (60-130) mL/min Random Glucose 121 H (70-110) mg/dL Calcium Adj for Albumin 11.7 H (8.4-10.2) mg/dL Albumin 2.3 L (3.4-5.0) gm/dl - Exam Constitutional: Present: Alert, Oriented x3, Cooperative, Well developed, No distress, Morbidly obese ENT Exam: Present: normal ENT inspection, hearing grossly normal Neck: Present: non-tender, full range of motion, supple, normal inspection, trachea midline Breasts: Present: Exam deferred, Nontender Respiratory: Present: chest non-tender, lungs clear, normal breath sounds, no respiratory distress, no accessory muscle use Cardiovascular/Chest: Present: normal peripheral pulses, regular rate, rhythm, no chest tenderness, no edema, no gallop, no JVD, no murmur, no rub Abdomen: Present: Normal bowel sounds, soft, nontender, nondistended, no rebound tenderness, no hepatospenomegaly, obese /Rectal: Present: Other - Indwelling suprapubic catheter in place, no apparent signs of infection Extremity: Present: normal range of motion, non-tender, normal inspection, no pedal edema, no calf tenderness, normal capillary refill Skin Exam: Present: normal color, warm/dry, no cyanosis Lymphatic: Present: no adenopathy Neurologic: 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 She is doing well with IV steroids and her response confirms our suspicion that this was a MS flare up. We will continue progressing her diet in order in hospital physical therapy to avoid deconditioning. In the meantime we will continue IV antibiotics with Vanco and IV ceftriaxone for adequate coverage of her bacteremia. Patient is scheduled to see her neurologist on November 09 so she was encouraged to discuss her treatment options and possibly upgrading her treatment to avoid these flareups if possible. We will continue to follow closely. - Problems/Diagnosis (1) Sepsis Problem: Acute Qualifiers: Sepsis type: sepsis due to unspecified organism Sepsis acute organ dysfunction status: with acute organ dysfunction Severe sepsis acute organ dysfunction type: unspecified Severe sepsis shock status: without septic shock Qualified Code(s): A41.9 - Sepsis, unspecified organism; R65.20 - Severe sepsis without septic shock (2) Multiple sclerosis, primary progressive Problem: Chronic (3) Depression Problem: Chronic (4) Multiple sclerosis Problem: Chronic (5) Neurogenic bladder Problem: Chronic (6) Multiple sclerosis exacerbation Problem: Acute (7) Leukocytosis Problem: Acute Qualifiers: (8) Anxiety Problem: Acute (9) Asthma Problem: Chronic (10) Morbid obesity Problem: Acute (11) Suprapubic catheter Problem: Acute (12) Recurrent UTI Problem: Acute (13) MARTA (acute kidney injury) Problem: Acute (14) Altered mental status Problem: Acute (15) Bacteremia Problem: Acute
[2020-10-19] MEDS: ENOXAPARIN SODIUM 40 MG/0.4 ML SYRG SC SCH (10:11)
[2020-10-19] MEDS: VANCOMYCIN/WATER FOR INJ (PEG) 1 GM/200 ML BAG IV SCH ×2 (10:59→22:30)
[2020-10-19] MEDS: ZINC SULFATE 220 MG CAPSULE PO SCH (17:10)
[2020-10-19] MEDS: LORazepam 1 MG TABLET PO PRN (21:12)
[2020-10-20] MEDS: PANTOPRAZOLE SODIUM 20 MG TABLET.DR PO SCH ×2 (07:08→20:15)
[2020-10-20] MEDS: NORMAL SALINE IV SCH ×2 (08:38→20:19)
[2020-10-20] MEDS: METHYLPREDNISOLONE SOD SUCC IV SCH ×2 (08:38→20:19)
[2020-10-20] MEDS: FLUTICASONE PROPIONATE 120 SPRAY INHALER NS SCH (08:38)
[2020-10-20] MEDS: CHOLECALCIFEROL 1,000 UNIT CAPSULE PO SCH (08:39)
[2020-10-20] MEDS: DOCUSATE SODIUM 100 MG CAPSULE PO SCH ×2 (08:39→20:15)
[2020-10-20] MEDS: MULTIVITAMINS 1 CAP CAPSULE PO SCH (08:40)
[2020-10-20] MEDS: VITAMIN B COMP W-C 1 TAB TABLET PO SCH (08:40)
[2020-10-20] MEDS: VENLAFAXINE HCL 37.5 MG CAP.SR.24H PO SCH (08:40)
[2020-10-20] MEDS: MONTELUKAST SODIUM 10 MG TABLET PO SCH (08:40)
[2020-10-20] MEDS: VENLAFAXINE HCL 150 MG CAP.SR.24H PO SCH (08:41)
[2020-10-20] MEDS: BACLOFEN 10 MG TABLET PO SCH ×2 (08:41→20:15)
[2020-10-20] MEDS: LORATADINE 10 MG TABLET PO SCH (08:41)
[2020-10-20 09:28] LABS: Hematocrit 39.5 % (37.0-47.0); Hemoglobin 13.2 gm/dL (12.5-16.0); Mean Cell Volume 94.3 fl (78-100); Mean Corpuscular Hemoglobin 31.5 pg (27-31); Mean Corpuscular Hgb Conc 33.4 g/dl (32-36); Mean Platelet Volume 11.5 fl (8-12.5); Platelet Count 229 K/mm3 (150-450); Red Blood Count 4.19 M/mm3 (4.2-5.4); Red Cell Distribution Width 13.4 % (11.5-14.0)
--- NOTE | 2020-10-20 09:28 | PN ---
Subjective - Date and Time Seen Date: 10/20/20 Time: 09:22 Subjective Narrative: I feel good, better than before. Objective Objective Narrative: 39-year-old female admitted for an acute multiple sclerosis flare, dehydration, recurrent UTI, and now bacteremia with Pseudomonia was evaluated at bedside this morning was found to be afebrile and in no acute distress. Patient continues to show progress, she is more alert and in good spirits. The patient maintained stable vitals and has had no recurrence of fever or chills. When asked she says she feels better than when she arrived. However it was explained to her this morning that she will need ongoing treatment to treat her bacteremia. It was confirmed this morning by lab that she is growing Pseudomonas in blood and in urine aside from a Klebsiella. Her IV antibiotics was optimized for proper coverage. We will repeat labs in order to reevaluate leukocytosis and electrolytes and treat accordingly. - Review of Systems Generalized/Overall Review: Reports: No Symptoms Reported EENTM: Reports: No Symptoms Reported Respiratory: Reports: No Symptoms Reported Cardiac: Reports: No Symptoms Reported Abdominal: Reports: No Symptoms Reported Genitourinary Symptoms: Reports: No Symptoms Reported Musculoskeletal Complaints: Reports: No Symptoms Reported Neurological: Reports: Pre-existing Deficit Skin: Reports: No Symptoms Reported Endocrine: Reports: No Symptoms Reported - Vitals Vitals: Last Vital Signs Temp 37.1 C 10/20/20 06:07 Pulse 96 10/20/20 06:07 Resp 14 10/20/20 06:07 BP 145/78 H 10/20/20 06:07 Pulse Ox 95 10/20/20 06:07 - Exam Constitutional: Present: Alert, Oriented x3, Cooperative, Well developed, No distress, Morbidly obese ENT Exam: Present: normal ENT inspection, hearing grossly normal Neck: Present: non-tender, full range of motion, supple, normal inspection, trachea midline Breasts: Present: Exam deferred, Nontender Respiratory: Present: chest non-tender, lungs clear, normal breath sounds, no respiratory distress, no accessory muscle use Cardiovascular/Chest: Present: normal peripheral pulses, regular rate, rhythm, no chest tenderness, no edema, no gallop, no JVD, no murmur Abdomen: Present: Normal bowel sounds, soft, nontender, nondistended, no rebound tenderness, no hepatospenomegaly, obese /Rectal: Present: Exam deferred Extremity: Present: normal range of motion, non-tender, normal inspection, no pedal edema, no calf tenderness, normal capillary refill Skin Exam: Present: normal color, warm/dry, no cyanosis Neurologic: Present: no motor/sensory deficits, alert, normal mood/affect, oriented x 3 Appearance: Present: appropriate appearance, appropriate insight, neat, no memory impairment Eye contact: Present: cooperative, good eye contact, normal speech Thoughts: Present: normal thought pattern, no apparent hallucination Assessment/Plan Plan Narrative: We will keep the patient on the current IV antibiotics to cover Pseudomonas and Klebsiella, and follow-up with lab results. - Problems/Diagnosis (1) Sepsis Problem: Acute Qualifiers: Sepsis type: sepsis due to unspecified organism Sepsis acute organ dysfunction status: with acute organ dysfunction Severe sepsis acute organ dysfunction type: unspecified Severe sepsis shock status: without septic shock Qualified Code(s): A41.9 - Sepsis, unspecified organism; R65.20 - Severe sepsis without septic shock (2) Multiple sclerosis, primary progressive Problem: Chronic (3) Depression Problem: Chronic (4) Multiple sclerosis Problem: Chronic (5) Neurogenic bladder Problem: Chronic (6) Multiple sclerosis exacerbation Problem: Acute (7) Leukocytosis Problem: Acute Qualifiers: (8) Anxiety Problem: Acute (9) Asthma Problem: Chronic (10) Morbid obesity Problem: Acute (11) Suprapubic catheter Problem: Acute (12) Recurrent UTI Problem: Acute (13) MARTA (acute kidney injury) Problem: Acute (14) Altered mental status Problem: Acute (15) Bacteremia Problem: Acute (16) Pseudomonal bacteremia Problem: Acute
[2020-10-20 09:40] LABS: Total Cells Counted 100
[2020-10-20 09:41] LABS: Albumin * 2.5 gm/dl (3.4-5.0); BUN/Creatinine Ratio 15.3 (9.0-21.6); Bilirubin, Total 0.2 mg/dL (0.0-1.1); Ca. Corrected For Albumin 12.2 mg/dL (8.4-10.2); Calcium * 11.3 mg/dL (7.9-10.9); Carbon Dioxide 21.7 mmol/L (24-32.6); Potassium 3.7 mmol/L (3.4-4.6); Total Protein 6.9 gm/dL (6.2-8.2)
[2020-10-20 09:59] LABS: Lymphocyte 6 % (20-51); Monocyte 3 % (0-9); Neutrophil 91 % (42-75)
[2020-10-20 10:00] LABS: Platelet Estimate Normal (NORMAL); RBC Morphology Normal (NORMAL)
[2020-10-20] MEDS: CEFTAZIDIME 2 GM in DEXTROSE 5 % IN WATER 100 ML IV SCH ×4 (10:06→17:42)
[2020-10-20] MEDS: ENOXAPARIN SODIUM 40 MG/0.4 ML SYRG SC SCH (10:12)
[2020-10-20] MEDS: ZINC SULFATE 220 MG CAPSULE PO SCH (17:42)
[2020-10-21] MEDS: CEFTAZIDIME 2 GM in DEXTROSE 5 % IN WATER 100 ML IV SCH ×6 (01:44→17:52)
[2020-10-21] MEDS: PANTOPRAZOLE SODIUM 20 MG TABLET.DR PO SCH ×2 (10:10→20:09)
[2020-10-21] MEDS: DOCUSATE SODIUM 100 MG CAPSULE PO SCH ×2 (10:11→20:10)
[2020-10-21] MEDS: MULTIVITAMINS 1 CAP CAPSULE PO SCH (10:11)
[2020-10-21] MEDS: VENLAFAXINE HCL 150 MG CAP.SR.24H PO SCH (10:13)
[2020-10-21] MEDS: LORATADINE 10 MG TABLET PO SCH (10:13)
[2020-10-21] MEDS: BACLOFEN 10 MG TABLET PO SCH ×2 (10:13→20:09)
[2020-10-21] MEDS: VENLAFAXINE HCL 37.5 MG CAP.SR.24H PO SCH (10:13)
[2020-10-21] MEDS: ENOXAPARIN SODIUM 40 MG/0.4 ML SYRG SC SCH (10:14)
[2020-10-21] MEDS: CHOLECALCIFEROL 1,000 UNIT CAPSULE PO SCH (10:14)
[2020-10-21] MEDS: VITAMIN B COMP W-C 1 TAB TABLET PO SCH (10:14)
[2020-10-21] MEDS: MONTELUKAST SODIUM 10 MG TABLET PO SCH (10:14)
[2020-10-21] MEDS: FLUTICASONE PROPIONATE 120 SPRAY INHALER NS SCH (10:24)
[2020-10-21] MEDS ORDERED: NORMAL SALINE 1,000 ML IV ONE (12:04)
--- NOTE | 2020-10-21 13:00 | PN ---
Subjective - Date and Time Seen Date: 10/21/20 Time: 12:55 Subjective Narrative: I feel good, getting better every day. Objective Objective Narrative: 39-year-old female admitted for multiple sclerosis flare, acute kidney injury, sepsis secondary to bacteremia, and UTI was evaluated at bedside this morning was found to be afebrile and in no acute distress. Patient has shown significant clinical improvement, she has not had any recurrence of fever and is regaining her strength. She is way more lucid than when she arrived and has resumed all neurological function. The patient denies any new symptoms and says she feels better every day however we will continue to keep her in the hospital to treat her bacteremia with IV antibiotics. The patient also has a long history of hypercalcemia, and her calcium levels are increasing so another bag of IV saline was ordered to address this. She has completed the IV steroids which helped considerably with her condition. We will continue to monitor her progress. Labs have been ordered for tomorrow morning to reevaluate leukocytosis as well as electrolytes and renal function. - Review of Systems Generalized/Overall Review: Reports: Weakness EENTM: Reports: No Symptoms Reported Respiratory: Reports: No Symptoms Reported Cardiac: Reports: No Symptoms Reported Abdominal: Reports: No Symptoms Reported Genitourinary Symptoms: Reports: No Symptoms Reported Musculoskeletal Complaints: Reports: No Symptoms Reported Neurological: Reports: No Symptoms Reported Skin: Reports: No Symptoms Reported Endocrine: Reports: No Symptoms Reported - Vitals Vitals: Last Vital Signs Temp 36.7 C 10/21/20 10:28 Pulse 83 10/21/20 10:28 Resp 18 10/21/20 10:28 BP 134/65 10/21/20 10:28 Pulse Ox 99 10/21/20 10:28 - Exam Constitutional: Present: Alert, Oriented x3, Cooperative, Well developed, No distress, Morbidly obese ENT Exam: Present: normal ENT inspection, hearing grossly normal, pharynx normal Neck: Present: non-tender, full range of motion, supple, normal inspection, trachea midline Breasts: Present: Exam deferred, Nontender Respiratory: Present: chest non-tender, lungs clear, normal breath sounds, no respiratory distress, no accessory muscle use Cardiovascular/Chest: Present: normal peripheral pulses, regular rate, rhythm, no chest tenderness, no edema, no gallop, no JVD, no murmur, no rub Abdomen: Present: Normal bowel sounds, soft, nontender, nondistended, no rebound tenderness, no hepatospenomegaly, no masses, obese /Rectal: Present: Exam deferred Extremity: Present: normal range of motion, non-tender, normal inspection, no pedal edema, no calf tenderness, normal capillary refill, pelvis stable Skin Exam: Present: normal color, warm/dry, no cyanosis Lymphatic: Present: no adenopathy 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 - Problems/Diagnosis (1) Sepsis Problem: Acute Qualifiers: Sepsis type: sepsis due to unspecified organism Sepsis acute organ dysfunction status: with acute organ dysfunction Severe sepsis acute organ dysfunction type: unspecified Severe sepsis shock status: without septic shock Qualified Code(s): A41.9 - Sepsis, unspecified organism; R65.20 - Severe sepsis without septic shock (2) Multiple sclerosis, primary progressive Problem: Chronic (3) Depression Problem: Chronic (4) Multiple sclerosis Problem: Chronic (5) Neurogenic bladder Problem: Chronic (6) Multiple sclerosis exacerbation Problem: Acute (7) Leukocytosis Problem: Acute Qualifiers: (8) Anxiety Problem: Acute (9) Asthma Problem: Chronic (10) Morbid obesity Problem: Acute (11) Suprapubic catheter Problem: Acute (12) Recurrent UTI Problem: Acute (13) MARTA (acute kidney injury) Problem: Acute (14) Altered mental status Problem: Acute (15) Bacteremia Problem: Acute (16) Pseudomonal bacteremia Problem: Acute (17) Hypercalcemia Problem: Acute
[2020-10-21] MEDS: ZINC SULFATE 220 MG CAPSULE PO SCH (17:51)
[2020-10-22] MEDS: CEFTAZIDIME 2 GM in DEXTROSE 5 % IN WATER 100 ML IV SCH ×6 (01:57→16:43)
[2020-10-22 06:34] LABS: Hematocrit 40.2 % (37.0-47.0); Hemoglobin 12.9 gm/dL (12.5-16.0); Mean Cell Volume 94.8 fl (78-100); Mean Corpuscular Hemoglobin 30.4 pg (27-31); Mean Corpuscular Hgb Conc 32.1 g/dl (32-36); Mean Platelet Volume 11.4 fl (8-12.5); Neutrophil # 4.5 K/mm3 (1.3-6.0); Platelet Count 227 K/mm3 (150-450); Red Blood Count 4.24 M/mm3 (4.2-5.4); Red Cell Distribution Width 13.4 % (11.5-14.0); White Blood Count 8.7 K/mm3 (4.0-10.5)
[2020-10-22 06:48] LABS: Albumin * 2.1 gm/dl (3.4-5.0); Anion Gap 11.6 mmol/L (6.8-13.8); BUN/Creatinine Ratio 20.5 (9.0-21.6); Bilirubin, Total 0.2 mg/dL (0.0-1.1); Ca. Corrected For Albumin 11.6 mg/dL (8.4-10.2); Calcium * 10.4 mg/dL (7.9-10.9); Carbon Dioxide 26.8 mmol/L (24-32.6); Potassium 3.4 mmol/L (3.4-4.6); Total Protein 5.8 gm/dL (6.2-8.2)
[2020-10-22] MEDS: BACLOFEN 10 MG TABLET PO SCH ×2 (08:06→20:10)
[2020-10-22] MEDS: LORATADINE 10 MG TABLET PO SCH (08:06)
[2020-10-22] MEDS: DOCUSATE SODIUM 100 MG CAPSULE PO SCH ×2 (08:06→20:11)
[2020-10-22] MEDS: PANTOPRAZOLE SODIUM 20 MG TABLET.DR PO SCH ×2 (08:06→20:11)
[2020-10-22] MEDS: MULTIVITAMINS 1 CAP CAPSULE PO SCH (08:08)
[2020-10-22] MEDS: VENLAFAXINE HCL 37.5 MG CAP.SR.24H PO SCH (08:08)
[2020-10-22] MEDS: VENLAFAXINE HCL 150 MG CAP.SR.24H PO SCH (08:08)
[2020-10-22] MEDS: VITAMIN B COMP W-C 1 TAB TABLET PO SCH (08:08)
[2020-10-22] MEDS: CHOLECALCIFEROL 1,000 UNIT CAPSULE PO SCH (08:09)
[2020-10-22] MEDS: MONTELUKAST SODIUM 10 MG TABLET PO SCH (08:09)
[2020-10-22] MEDS: FLUTICASONE PROPIONATE 120 SPRAY INHALER NS SCH (08:10)
[2020-10-22] MEDS: ENOXAPARIN SODIUM 40 MG/0.4 ML SYRG SC SCH (10:00)
--- NOTE | 2020-10-22 10:11 | PN ---
Subjective - Date and Time Seen Date: 10/22/20 Time: 10:03 Subjective Narrative: I feel good, just have a little back pain. Objective Objective Narrative: 39-year-old female admitted for multiple sclerosis flare, acute kidney injury, sepsis secondary to bacteremia, and UTI was evaluated at bedside this morning was found to be afebrile and in no acute distress. Patient continues to report feeling well and denies any recurrence of fever chills or neurological symptoms. However we will keep her in the hospital for additional days of IV antibiotics and IV hydration, after explaining everything to her she agreed to this plan. Therefore we will not make any changes to the current treatment and monitor throughout the weekend. - Review of Systems Generalized/Overall Review: Reports: No Symptoms Reported EENTM: Reports: No Symptoms Reported Respiratory: Reports: No Symptoms Reported Cardiac: Reports: No Symptoms Reported Abdominal: Reports: No Symptoms Reported Genitourinary Symptoms: Reports: No Symptoms Reported Musculoskeletal Complaints: Reports: Back Pain Neurological: Reports: No Symptoms Reported Skin: Reports: No Symptoms Reported Endocrine: Reports: No Symptoms Reported - Vitals Vitals: Last Vital Signs Temp 37.0 C 10/22/20 07:43 Pulse 78 10/22/20 07:43 Resp 18 10/22/20 07:43 BP 137/83 10/22/20 07:43 Pulse Ox 96 10/22/20 07:43 - Abnormal Lab Findings Abnormal Lab Findings: Abnormal Lab Results 10/22/20 10/22/20 Range/Units 06:28 06:28 Immature Gran % (Auto) 3.60 H (0.001-0.429) % Immature Gran # (Auto) 0.31 H (0.000-0.0310) K/mm3 Sodium 146 H (132-142) mmol/L Plasma Sodium 146 H (130-142) mmol/L Chloride 111 H (97-106) mmol/L Calcium Adj for Albumin 11.6 H (8.4-10.2) mg/dL Total Protein 5.8 L (6.2-8.2) gm/dL Albumin 2.1 L (3.4-5.0) gm/dl - Exam Constitutional: Present: Alert, Oriented x3, Cooperative, Well developed, Well nourished, No distress, Obese, Morbidly obese ENT Exam: Present: normal ENT inspection, hearing grossly normal Neck: Present: non-tender, full range of motion, supple, normal inspection, trachea midline Breasts: Present: Exam deferred, Nontender Respiratory: Present: chest non-tender, lungs clear, normal breath sounds, no respiratory distress, no accessory muscle use Cardiovascular/Chest: Present: normal peripheral pulses, regular rate, rhythm, no chest tenderness, no edema, no gallop, no JVD, no murmur, no rub Abdomen: Present: Normal bowel sounds, soft, nontender, nondistended, no rebound tenderness, no hepatospenomegaly, no masses, obese /Rectal: Present: Exam deferred Extremity: Present: normal range of motion, non-tender, normal inspection, no pedal edema, no calf tenderness, normal capillary refill, pelvis stable Skin Exam: Present: normal color, warm/dry, no cyanosis Lymphatic: Present: no adenopathy Neurologic: 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 - Problems/Diagnosis (1) Sepsis Problem: Resolved Qualifiers: Sepsis type: Pseudomonas Sepsis acute organ dysfunction status: with acute organ dysfunction Severe sepsis acute organ dysfunction type: unspecified Severe sepsis shock status: without septic shock Qualified Code(s): A41.52 - Sepsis due to Pseudomonas; R65.20 - Severe sepsis without septic shock (2) Multiple sclerosis, primary progressive Problem: Chronic (3) Depression Problem: Chronic (4) Multiple sclerosis Problem: Chronic (5) Neurogenic bladder Problem: Chronic (6) Multiple sclerosis exacerbation Problem: Acute (7) Leukocytosis Problem: Acute Qualifiers: (8) Anxiety Problem: Acute (9) Asthma Problem: Chronic (10) Morbid obesity Problem: Acute (11) Suprapubic catheter Problem: Acute (12) Recurrent UTI Problem: Acute (13) MARTA (acute kidney injury) Problem: Acute (14) Altered mental status Problem: Acute (15) Bacteremia Problem: Acute (16) Pseudomonal bacteremia Problem: Acute (17) Hypercalcemia Problem: Acute
[2020-10-22] MEDS: ACETAMINOPHEN 500 MG TABLET PO PRN (10:34)
[2020-10-22] MEDS: ZINC SULFATE 220 MG CAPSULE PO SCH (16:43)
[2020-10-22] MEDS: LORazepam 1 MG TABLET PO PRN (20:20)
[2020-10-23] MEDS: CEFTAZIDIME 2 GM in DEXTROSE 5 % IN WATER 100 ML IV SCH ×6 (01:04→16:36)
[2020-10-23] MEDS: FLUTICASONE PROPIONATE 120 SPRAY INHALER NS SCH (09:19)
[2020-10-23] MEDS: DOCUSATE SODIUM 100 MG CAPSULE PO SCH ×2 (09:19→20:14)
[2020-10-23] MEDS: VITAMIN B COMP W-C 1 TAB TABLET PO SCH (09:20)
[2020-10-23] MEDS: VENLAFAXINE HCL 37.5 MG CAP.SR.24H PO SCH (09:20)
[2020-10-23] MEDS: LORATADINE 10 MG TABLET PO SCH (09:20)
[2020-10-23] MEDS: MULTIVITAMINS 1 CAP CAPSULE PO SCH (09:20)
[2020-10-23] MEDS: VENLAFAXINE HCL 150 MG CAP.SR.24H PO SCH (09:21)
[2020-10-23] MEDS: CHOLECALCIFEROL 1,000 UNIT CAPSULE PO SCH (09:21)
[2020-10-23] MEDS: BACLOFEN 10 MG TABLET PO SCH ×2 (09:21→20:14)
[2020-10-23] MEDS: PANTOPRAZOLE SODIUM 20 MG TABLET.DR PO SCH ×2 (09:21→20:15)
[2020-10-23] MEDS: MONTELUKAST SODIUM 10 MG TABLET PO SCH (09:21)
[2020-10-23] MEDS: ENOXAPARIN SODIUM 40 MG/0.4 ML SYRG SC SCH ×2 (09:22→09:41)
[2020-10-23] MEDS: ZINC SULFATE 220 MG CAPSULE PO SCH (16:36)
--- NOTE | 2020-10-23 22:53 | PN ---
Subjective - Date and Time Seen Date: 10/23/20 Time: 05:15 Subjective Narrative: Patient is resting comfortably in bed this morning. Here for MS flare, UTI, bacteremia. Neurological symptoms have resolved the patient is pleasant and talkative and alert and oriented. Patient is on IV antibiotics for her bacteremia secondary to Pseudomonas and will continue this for an additional 4 days. Her vital signs are stable and she is afebrile. Lab work shows normal white count now after being on IV antibiotics Objective - Review of Systems Generalized/Overall Review: Reports: No Symptoms Reported EENTM: Reports: No Symptoms Reported Respiratory: Reports: No Symptoms Reported Cardiac: Reports: No Symptoms Reported Abdominal: Reports: No Symptoms Reported Genitourinary Symptoms: Reports: No Symptoms Reported Musculoskeletal Complaints: Reports: No Symptoms Reported Neurological: Reports: No Symptoms Reported Skin: Reports: No Symptoms Reported Endocrine: Reports: No Symptoms Reported - Vitals Vitals: Last Vital Signs Temp 36.8 C 10/23/20 22:04 Pulse 100 10/23/20 22:04 Resp 20 10/23/20 22:04 BP 121/70 10/23/20 22:04 Pulse Ox 98 10/23/20 22:04 - Exam Constitutional: Present: Alert, Oriented x3, Cooperative, Obese Respiratory: Present: lungs clear, normal breath sounds Cardiovascular/Chest: Present: regular rate, rhythm, no murmur Abdomen: Present: soft, nontender, nondistended. 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 Patient is on ceftazidime 2 g every 8. Microbiology reviewed, sensitive to this antibiotic. We will continue for additional 4 days prior to discharge. Repeat CBC in the morning, last white count was within normal limits Neurological symptoms have resolved. Patient alert and oriented. Not currently on steroids. Continue current treatment plan. Nurse to call questions or concerns. - Problems/Diagnosis (1) UTI (urinary tract infection) Problem: Acute Qualifiers: Urinary tract infection type: acute pyelonephritis Qualified Code(s): N10 - Acute pyelonephritis (2) Pseudomonal bacteremia Problem: Acute (3) Multiple sclerosis, primary progressive Problem: Chronic (4) Depression Problem: Chronic (5) UTI (urinary tract infection) Problem: Suspected Qualifiers: Urinary tract infection type: catheter-associated UTI Indwelling urinary catheter type: indwelling urethral catheter Encounter type: sequela Qualified Code(s): T83.511S - Infection and inflammatory reaction due to indwelling urethral catheter, sequela; N39.0 - Urinary tract infection, site not specified (6) Multiple sclerosis exacerbation Problem: Acute
[2020-10-24] MEDS: CEFTAZIDIME 2 GM in DEXTROSE 5 % IN WATER 100 ML IV SCH ×6 (01:41→16:35)
[2020-10-24 07:39] LABS: Hematocrit 40.7 % (37.0-47.0); Hemoglobin 13.2 gm/dL (12.5-16.0); Mean Cell Volume 94.7 fl (78-100); Mean Corpuscular Hemoglobin 30.7 pg (27-31); Mean Corpuscular Hgb Conc 32.4 g/dl (32-36); Neutrophil # 9.2 K/mm3 (1.3-6.0); Platelet Count 240 K/mm3 (150-450); Red Cell Distribution Width 13.2 % (11.5-14.0); White Blood Count 13.5 K/mm3 (4.0-10.5)
[2020-10-24] MEDS: ENOXAPARIN SODIUM 40 MG/0.4 ML SYRG SC SCH (09:41)
[2020-10-24] MEDS: FLUTICASONE PROPIONATE 120 SPRAY INHALER NS SCH (09:41)
[2020-10-24] MEDS: CHOLECALCIFEROL 1,000 UNIT CAPSULE PO SCH (09:42)
[2020-10-24] MEDS: VENLAFAXINE HCL 37.5 MG CAP.SR.24H PO SCH (09:42)
[2020-10-24] MEDS: MULTIVITAMINS 1 CAP CAPSULE PO SCH (09:42)
[2020-10-24] MEDS: VENLAFAXINE HCL 150 MG CAP.SR.24H PO SCH (09:43)
[2020-10-24] MEDS: BACLOFEN 10 MG TABLET PO SCH ×2 (09:43→20:09)
[2020-10-24] MEDS: VITAMIN B COMP W-C 1 TAB TABLET PO SCH (09:43)
[2020-10-24] MEDS: DOCUSATE SODIUM 100 MG CAPSULE PO SCH ×2 (09:43→20:09)
[2020-10-24] MEDS: PANTOPRAZOLE SODIUM 20 MG TABLET.DR PO SCH ×2 (09:43→20:08)
[2020-10-24] MEDS: MONTELUKAST SODIUM 10 MG TABLET PO SCH (09:43)
[2020-10-24] MEDS: LORATADINE 10 MG TABLET PO SCH (09:43)
[2020-10-24] MEDS: SENNOSIDES/DOCUSATE SODIUM 1 TAB TABLET PO PRN (11:36)
[2020-10-24] MEDS: POLYETHYLENE GLYCOL 3350 17 GM PACKET PO PRN (11:36)
[2020-10-24] MEDS: ZINC SULFATE 220 MG CAPSULE PO SCH (16:35)
[2020-10-24] MEDS: MODAFINIL 100 MG PO SCH (16:36)
--- NOTE | 2020-10-24 18:08 | PN ---
Subjective - Date and Time Seen Date: 10/24/20 Time: 11:15 Subjective Narrative: She feels well this morning. Cognition at baseline. No abdominal pain or CVA tenderness. Vital signs been stable and she been afebrile. White count elevated from previous CBC, 8.7 up to 13.5. Repeat CBC the morning. She also has not had a bowel movement in greater than 4 days. She has as needed bowel regimen treatments but has not requested any has not received any. We will disc uss this with the nurse. Objective - Review of Systems Generalized/Overall Review: Reports: No Symptoms Reported EENTM: Reports: No Symptoms Reported Respiratory: Reports: No Symptoms Reported Cardiac: Reports: No Symptoms Reported Abdominal: Reports: Constipation. Denies: Abdominal Pain Genitourinary Symptoms: Reports: No Symptoms Reported Musculoskeletal Complaints: Reports: No Symptoms Reported Neurological: Reports: No Symptoms Reported Skin: Reports: No Symptoms Reported Endocrine: Reports: No Symptoms Reported - Vitals Vitals: Last Vital Signs Temp 36.6 C 10/24/20 14:54 Pulse 96 10/24/20 14:54 Resp 20 10/24/20 14:54 BP 140/73 H 10/24/20 14:54 Pulse Ox 98 10/24/20 14:54 - Abnormal Lab Findings Abnormal Lab Findings: Abnormal Lab Results 10/24/20 Range/Units 07:26 WBC 13.5 H D (4.0-10.5) K/mm3 Immature Gran % (Auto) 4.20 H (0.001-0.429) % Immature Gran # (Auto) 0.57 H (0.000-0.0310) K/mm3 Lymphocytes % 18.3 L (20-51) % Neutrophils # 9.2 H (1.3-6.0) K/mm3 - Exam Constitutional: Present: Alert, Oriented x3, Cooperative, Obese ENT Exam: Present: hearing grossly normal Respiratory: Present: lungs clear, normal breath sounds Cardiovascular/Chest: Present: regular rate, rhythm, no murmur Abdomen: Present: soft, nontender, nondistended. Absent: rigidity Skin Exam: Present: normal color, warm/dry Appearance: Present: appropriate appearance, appropriate insight Eye contact: Present: cooperative, good eye contact Thoughts: Present: normal thought pattern, normal mood /affect Assessment/Plan Plan Narrative: Patient continues to do well and is cognitively back to baseline. Her vital signs are stable she been afebrile. She is tolerating the antibiotic treatment for her UTI well though her white count did elevate some today. She is on steroids. Will repeat CBC in the morning otherwise no changes to her treatment plan. Patient spikes a fever her white count continues to go up, will repeat blood cultures and consider change antibiotics I do not think this is necessary at this time. Otherwise no other concerns aside from her constipation. Discussed this with her nurse who will make sure she gets her Senokot and MiraLAX. Encouraged increased water intake. Nurse to call questions or concerns, will follow up with her tomorrow. - Problems/Diagnosis (1) UTI (urinary tract infection) Problem: Acute Qualifiers: Urinary tract infection type: acute pyelonephritis Qualified Code(s): N10 - Acute pyelonephritis (2) Pseudomonal bacteremia Problem: Acute (3) Multiple sclerosis, primary progressive Problem: Chronic (4) Depression Problem: Chronic (5) UTI (urinary tract infection) Problem: Suspected Qualifiers: Urinary tract infection type: catheter-associated UTI Indwelling urinary catheter type: indwelling urethral catheter Encounter type: sequela Qualified Code(s): T83.511S - Infection and inflammatory reaction due to indwelling urethral catheter, sequela; N39.0 - Urinary tract infection, site not specified (6) Multiple sclerosis exacerbation Problem: Acute
[2020-10-24] MEDS: LORazepam 1 MG TABLET PO PRN (20:15)
[2020-10-25] MEDS: CEFTAZIDIME 2 GM in DEXTROSE 5 % IN WATER 100 ML IV SCH ×6 (02:52→16:59)
[2020-10-25] MEDS: CHOLECALCIFEROL 1,000 UNIT CAPSULE PO SCH (09:12)
[2020-10-25] MEDS: VENLAFAXINE HCL 150 MG CAP.SR.24H PO SCH (09:12)
[2020-10-25] MEDS: FLUTICASONE PROPIONATE 120 SPRAY INHALER NS SCH (09:12)
[2020-10-25] MEDS: DOCUSATE SODIUM 100 MG CAPSULE PO SCH ×2 (09:12→20:51)
[2020-10-25] MEDS: VENLAFAXINE HCL 37.5 MG CAP.SR.24H PO SCH (09:12)
[2020-10-25] MEDS: BACLOFEN 10 MG TABLET PO SCH ×2 (09:12→20:52)
[2020-10-25] MEDS: MONTELUKAST SODIUM 10 MG TABLET PO SCH (09:13)
[2020-10-25] MEDS: POLYETHYLENE GLYCOL 3350 17 GM PACKET PO PRN (09:13)
[2020-10-25] MEDS: VITAMIN B COMP W-C 1 TAB TABLET PO SCH (09:13)
[2020-10-25] MEDS: SENNOSIDES/DOCUSATE SODIUM 1 TAB TABLET PO PRN (09:13)
[2020-10-25] MEDS: MULTIVITAMINS 1 CAP CAPSULE PO SCH (09:13)
[2020-10-25] MEDS: LORATADINE 10 MG TABLET PO SCH (09:13)
[2020-10-25] MEDS: PANTOPRAZOLE SODIUM 20 MG TABLET.DR PO SCH ×2 (09:13→20:53)
[2020-10-25 09:23] LABS: Hematocrit 39.6 % (37.0-47.0); Hemoglobin 12.9 gm/dL (12.5-16.0); Mean Cell Volume 94.5 fl (78-100); Mean Corpuscular Hemoglobin 30.8 pg (27-31); Mean Corpuscular Hgb Conc 32.6 g/dl (32-36); Mean Platelet Volume 10.8 fl (8-12.5); Neutrophil # 7.2 K/mm3 (1.3-6.0); Neutrophil % 60.1 % (42-75.0); Platelet Count 257 K/mm3 (150-450); Red Blood Count 4.19 M/mm3 (4.2-5.4); Red Cell Distribution Width 13.2 % (11.5-14.0)
[2020-10-25 09:35] LABS: Albumin * 2.3 gm/dl (3.4-5.0); Anion Gap 11.5 mmol/L (6.8-13.8); BUN/Creatinine Ratio 11.3 (9.0-21.6); Bilirubin, Total 0.4 mg/dL (0.0-1.1); Ca. Corrected For Albumin 11.3 mg/dL (8.4-10.2); Calcium * 10.3 mg/dL (7.9-10.9); Carbon Dioxide 27.4 mmol/L (24-32.6); Potassium 3.9 mmol/L (3.4-4.6); Total Protein 6.7 gm/dL (6.2-8.2)
[2020-10-25] MEDS: ENOXAPARIN SODIUM 40 MG/0.4 ML SYRG SC SCH (10:14)
[2020-10-25] MEDS ORDERED: NORMAL SALINE 1,000 ML IV ONE (10:31)
--- NOTE | 2020-10-25 10:43 | PN ---
Subjective - Date and Time Seen Date: 10/25/20 Time: 10:33 Subjective Narrative: I feel fine just constipated. Objective Objective Narrative: 39-year-old female admitted for multiple sclerosis flare, UTI, and bacteremia was evaluated bedside this morning was found to be afebrile and in no acute distress. Patient continues to show clinical improvement, she has returned to her baseline cognitive function and denies any major concerns. However, during the weekend there was a slight bump up in her WBCs and her renal function decreased. Patient has had no recurrence of fever or chills. Of importance she informs me this morning that her suprapubic catheter was recently changed before this hospitalization and it has been known to cause infection. Evaluation of the catheter was negative for any erythema tenderness or drainage, and the catheter looked clean and normal. Repeat labs in 6 morning showed a downward trend from the previous. Labs this morning also revealed a drop in her renal function for an unknown reason, IV fluids was ordered. Therefore given these findings we will repeat labs in the morning for reevaluation of leukocytosis as well as renal function and reevaluate the patient at bedside. The only complaint this morning was constipation which is not new for her, therefore she was given MiraLAX and stool softeners to address the issue. Patient is tolerating treatment with IV antibiotics to address her bacteremia and UTI without any issues. She is completing 7 days of intrahospital antibiotic therapy since it cannot be done at home. We will reevaluate in the morning. - Review of Systems Generalized/Overall Review: Reports: No Symptoms Reported EENTM: Reports: No Symptoms Reported Respiratory: Reports: No Symptoms Reported Cardiac: Reports: No Symptoms Reported Abdominal: Reports: Constipation Genitourinary Symptoms: Reports: No Symptoms Reported Musculoskeletal Complaints: Reports: No Symptoms Reported Neurological: Reports: Pre-existing Deficit Skin: Reports: No Symptoms Reported Endocrine: Reports: No Symptoms Reported - Vitals Vitals: Last Vital Signs Temp 36.5 C 10/25/20 06:25 Pulse 96 10/25/20 06:25 Resp 20 10/25/20 06:25 BP 121/84 10/25/20 06:25 Pulse Ox 99 10/25/20 06:25 - Abnormal Lab Findings Abnormal Lab Findings: Abnormal Lab Results 10/25/20 10/25/20 Range/Units 09:15 09:15 WBC 12.0 H (4.0-10.5) K/mm3 RBC 4.19 L (4.2-5.4) M/mm3 Immature Gran % (Auto) 6.10 H (0.001-0.429) % Immature Gran # (Auto) 0.73 H (0.000-0.0310) K/mm3 Monocytes % 9.3 H (0.0-9) % Neutrophils # 7.2 H (1.3-6.0) K/mm3 Monocytes # 1.1 H (0.0-1.0) k/mm3 Est GFR (Non-Af Amer) 47 L D (60-130) mL/min Calcium Adj for Albumin 11.3 H (8.4-10.2) mg/dL Albumin 2.3 L (3.4-5.0) gm/dl - Exam Constitutional: Present: Alert, Oriented x3, Cooperative, Well developed, Well nourished, No distress, Obese ENT Exam: Present: normal ENT inspection, hearing grossly normal Neck: Present: non-tender, full range of motion, supple, normal inspection, trachea midline Breasts: Present: Exam deferred, Nontender Respiratory: Present: chest non-tender, lungs clear, normal breath sounds, no respiratory distress, no accessory muscle use, No rales Cardiovascular/Chest: Present: normal peripheral pulses, regular rate, rhythm, no chest tenderness, no edema, no gallop, no JVD, no murmur, no rub Abdomen: Present: nontender, nondistended, no rebound tenderness, no he patospenomegaly, obese, hypoactive /Rectal: Present: Exam deferred Extremity: Present: normal range of motion, non-tender, normal inspection, no pedal edema, no calf tenderness, normal capillary refill, pelvis stable Skin Exam: Present: normal color, warm/dry, no cyanosis Lymphatic: Present: no adenopathy 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 We will follow-up at bedside tomorrow morning. - Problems/Diagnosis (1) Sepsis Problem: Resolved Qualifiers: Sepsis type: Pseudomonas Sepsis acute organ dysfunction status: with acute organ dysfunction Severe sepsis acute organ dysfunction type: unspecified Severe sepsis shock status: without septic shock Qualified Code(s): A41.52 - Sepsis due to Pseudomonas; R65.20 - Severe sepsis without septic shock (2) Multiple sclerosis, primary progressive Problem: Chronic (3) Depression Problem: Chronic (4) Multiple sclerosis Problem: Chronic (5) Neurogenic bladder Problem: Chronic (6) Multiple sclerosis exacerbation Problem: Acute (7) Leukocytosis Problem: Acute Qualifiers: (8) Anxiety Problem: Acute (9) Asthma Problem: Chronic (10) Morbid obesity Problem: Chronic (11) Suprapubic catheter Problem: Chronic (12) Recurrent UTI Problem: Acute (13) MARTA (acute kidney injury) Problem: Acute (14) Altered mental status Problem: Resolved (15) Bacteremia Problem: Acute (16) Pseudomonal bacteremia Problem: Acute (17) Hypercalcemia Problem: Chronic (18) Constipation Problem: Acute
[2020-10-25] MEDS: MODAFINIL 100 MG PO SCH (16:57)
[2020-10-25] MEDS: ZINC SULFATE 220 MG CAPSULE PO SCH (16:58)
[2020-10-26] MEDS: CEFTAZIDIME 2 GM in DEXTROSE 5 % IN WATER 100 ML IV SCH ×2 (00:42)
[2020-10-26] MEDS: ACETAMINOPHEN 500 MG TABLET PO PRN ×2 (04:07→12:56)
[2020-10-26 06:28] LABS: Hematocrit 37.3 % (37.0-47.0); Hemoglobin 12.4 gm/dL (12.5-16.0); Mean Cell Volume 93.7 fl (78-100); Mean Corpuscular Hemoglobin 31.2 pg (27-31); Mean Corpuscular Hgb Conc 33.2 g/dl (32-36); Mean Platelet Volume 10.8 fl (8-12.5); Neutrophil # 8.4 K/mm3 (1.3-6.0); Neutrophil % 62.7 % (42-75.0); Platelet Count 278 K/mm3 (150-450); Red Blood Count 3.98 M/mm3 (4.2-5.4); Red Cell Distribution Width 13.1 % (11.5-14.0); White Blood Count 13.5 K/mm3 (4.0-10.5)
[2020-10-26 06:44] LABS: Albumin * 2.3 gm/dl (3.4-5.0); Anion Gap 12.2 mmol/L (6.8-13.8); BUN/Creatinine Ratio 13.3 (9.0-21.6); Bilirubin, Total 0.3 mg/dL (0.0-1.1); Ca. Corrected For Albumin 11.6 mg/dL (8.4-10.2); Calcium * 10.6 mg/dL (7.9-10.9); Carbon Dioxide 25.6 mmol/L (24-32.6); Potassium 3.8 mmol/L (3.4-4.6); Total Protein 6.8 gm/dL (6.2-8.2)
[2020-10-26] MEDS: PANTOPRAZOLE SODIUM 20 MG TABLET.DR PO SCH ×2 (07:03→21:02)
[2020-10-26] MEDS: VENLAFAXINE HCL 37.5 MG CAP.SR.24H PO SCH (08:19)
[2020-10-26] MEDS: LORATADINE 10 MG TABLET PO SCH (08:19)
[2020-10-26] MEDS: DOCUSATE SODIUM 100 MG CAPSULE PO SCH ×2 (08:19→21:01)
[2020-10-26] MEDS: MULTIVITAMINS 1 CAP CAPSULE PO SCH (08:20)
[2020-10-26] MEDS: BACLOFEN 10 MG TABLET PO SCH ×2 (08:20→21:01)
[2020-10-26] MEDS: VITAMIN B COMP W-C 1 TAB TABLET PO SCH (08:20)
[2020-10-26] MEDS: VENLAFAXINE HCL 150 MG CAP.SR.24H PO SCH (08:20)
[2020-10-26] MEDS: CHOLECALCIFEROL 1,000 UNIT CAPSULE PO SCH (08:20)
[2020-10-26] MEDS: MONTELUKAST SODIUM 10 MG TABLET PO SCH (08:20)
[2020-10-26] MEDS: FLUTICASONE PROPIONATE 120 SPRAY INHALER NS SCH (09:36)
[2020-10-26] MEDS: PIPERACILLIN SODIUM/TAZOBACTAM 3.375 GM in DEXTROSE 5 % IN WATER 100 ML IV SCH ×4 (09:39→17:15)
[2020-10-26] MEDS: ENOXAPARIN SODIUM 40 MG/0.4 ML SYRG SC SCH (10:56)
--- NOTE | 2020-10-26 12:58 | PN ---
Subjective - Date and Time Seen Date: 10/26/20 Time: 12:47 Subjective Narrative: I feel off today. Objective Objective Narrative: 39-year-old female admitted for multiple sclerosis flare, UTI, and bacteremia was evaluated bedside this morning was found to be afebrile and in no acute distress. Patient's WBC continues to be elevated so her IV antibiotics was changed for better response. The patient also had an episode of fever last night and had to be administered acetaminophen. The most likely source of her infection continues to be her suprapubic catheter, however it was changed less than 2 weeks ago by her urologist. Evaluation of the catheter is negative for any signs or symptoms of infection there is no bruising drainage orders foul odor so for now we will just monitor this. She continues to be at her baseline neurologically and shows no new symptoms or symptoms. - Review of Systems Generalized/Overall Review: Reports: Fever EENTM: Reports: No Symptoms Reported Respiratory: Reports: No Symptoms Reported Cardiac: Reports: No Symptoms Reported Abdominal: Reports: No Symptoms Reported Genitourinary Symptoms: Reports: No Symptoms Reported Musculoskeletal Complaints: Reports: No Symptoms Reported Neurological: Reports: No Symptoms Reported Skin: Reports: No Symptoms Reported Endocrine: Reports: No Symptoms Reported - Vitals Vitals: Last Vital Signs Temp 37.4 C 10/26/20 10:00 Pulse 100 10/26/20 10:00 Resp 20 10/26/20 10:00 BP 156/84 H 10/26/20 10:00 Pulse Ox 97 10/26/20 10:00 - Abnormal Lab Findings Abnormal Lab Findings: Abnormal Lab Results 10/26/20 10/26/20 Range/Units 06:22 06:22 WBC 13.5 H (4.0-10.5) K/mm3 RBC 3.98 L (4.2-5.4) M/mm3 Hgb 12.4 L (12.5-16.0) gm/dL MCH 31.2 H (27-31) pg Immature Gran % (Auto) 4.60 H (0.001-0.429) % Immature Gran # (Auto) 0.62 H (0.000-0.0310) K/mm3 Monocytes % 9.6 H (0.0-9) % Neutrophils # 8.4 H (1.3-6.0) K/mm3 Monocytes # 1.3 H (0.0-1.0) k/mm3 Chloride 107 H (97-106) mmol/L Est GFR (Non-Af Amer) 49 L (60-130) mL/min Calcium Adj for Albumin 11.6 H (8.4-10.2) mg/dL Albumin 2.3 L (3.4-5.0) gm/dl - Exam Constitutional: Present: Alert, Oriented x3, Cooperative, Well developed, Well nourished, No distress, Morbidly obese ENT Exam: Present: normal ENT inspection, hearing grossly normal Neck: Present: non-tender, full range of motion, supple, normal inspection, trachea midline Breasts: Present: Exam deferred, Nontender Respiratory: Present: chest non-tender, lungs clear, normal breath sounds, no respiratory distress Cardiovascular/Chest: Present: normal peripheral pulses, regular rate, rhythm, no chest tenderness, no edema, no gallop, no JVD, no murmur, no rub, costrochronditis Abdomen: Present: Normal bowel sounds, soft, nontender, nondistended, no rebound tenderness, no hepatospenomegaly, no masses, obese /Rectal: Present: Exam deferred Extremity: Present: normal range of motion, non-tender, normal inspection, no pedal edema, no calf tenderness Skin Exam: Present: normal color, warm/dry, no cyanosis Lymphatic: Present: no adenopathy 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 - Problems/Diagnosis (1) Sepsis Problem: Resolved Qualifiers: Sepsis type: Pseudomonas Sepsis acute organ dysfunction status: with acute organ dysfunction Severe sepsis acute organ dysfunction type: unspecified Severe sepsis shock status: without septic shock Qualified Code(s): A41.52 - Sepsis due to Pseudomonas; R65.20 - Severe sepsis without septic shock (2) Multiple sclerosis, primary progressive Problem: Chronic (3) Depression Problem: Chronic (4) Multiple sclerosis Problem: Chronic (5) Neurogenic bladder Problem: Chronic (6) Multiple sclerosis exacerbation Problem: Acute (7) Leukocytosis Problem: Acute Qualifiers: (8) Anxiety Problem: Acute (9) Asthma Problem: Chronic (10) Morbid obesity Problem: Chronic (11) Suprapubic catheter Problem: Chronic (12) Recurrent UTI Problem: Acute (13) MARTA (acute kidney injury) Problem: Acute (14) Altered mental status Problem: Resolved (15) Bacteremia Problem: Acute (16) Pseudomonal bacteremia Problem: Acute (17) Hypercalcemia Problem: Chronic (18) Constipation Problem: Acute
[2020-10-26] MEDS: MODAFINIL 100 MG PO SCH (17:14)
[2020-10-26] MEDS: ZINC SULFATE 220 MG CAPSULE PO SCH (17:15)
[2020-10-27] MEDS: PIPERACILLIN SODIUM/TAZOBACTAM 3.375 GM in DEXTROSE 5 % IN WATER 100 ML IV SCH ×6 (00:37→16:18)
[2020-10-27 06:39] LABS: Albumin * 2.5 gm/dl (3.4-5.0); Anion Gap 11.8 mmol/L (6.8-13.8); BUN/Creatinine Ratio 10.4 (9.0-21.6); Bilirubin, Total 0.4 mg/dL (0.0-1.1); Ca. Corrected For Albumin 11.8 mg/dL (8.4-10.2); Calcium * 10.9 mg/dL (7.9-10.9); Carbon Dioxide 28.2 mmol/L (24-32.6); Total Protein 7.7 gm/dL (6.2-8.2)
[2020-10-27 06:43] LABS: Hematocrit 40.5 % (37.0-47.0); Hemoglobin 12.9 gm/dL (12.5-16.0); Mean Cell Volume 95.7 fl (78-100); Mean Corpuscular Hemoglobin 30.5 pg (27-31); Mean Corpuscular Hgb Conc 31.9 g/dl (32-36); Mean Platelet Volume 11.1 fl (8-12.5); Neutrophil # 8.8 K/mm3 (1.3-6.0); Neutrophil % 66.5 % (42-75.0); Platelet Count 308 K/mm3 (150-450); Red Blood Count 4.23 M/mm3 (4.2-5.4); Red Cell Distribution Width 13.2 % (11.5-14.0); White Blood Count 13.3 K/mm3 (4.0-10.5)
[2020-10-27] MEDS: PANTOPRAZOLE SODIUM 20 MG TABLET.DR PO SCH ×2 (07:01→20:08)
[2020-10-27] MEDS: VITAMIN B COMP W-C 1 TAB TABLET PO SCH (08:46)
[2020-10-27] MEDS: VENLAFAXINE HCL 37.5 MG CAP.SR.24H PO SCH (08:46)
[2020-10-27] MEDS: MONTELUKAST SODIUM 10 MG TABLET PO SCH (08:47)
[2020-10-27] MEDS: VENLAFAXINE HCL 150 MG CAP.SR.24H PO SCH (08:47)
[2020-10-27] MEDS: FLUTICASONE PROPIONATE 120 SPRAY INHALER NS SCH (08:47)
[2020-10-27] MEDS: BACLOFEN 10 MG TABLET PO SCH ×2 (08:47→20:08)
[2020-10-27] MEDS: MULTIVITAMINS 1 CAP CAPSULE PO SCH (08:47)
[2020-10-27] MEDS: DOCUSATE SODIUM 100 MG CAPSULE PO SCH ×2 (08:47→20:08)
[2020-10-27] MEDS: LORATADINE 10 MG TABLET PO SCH (08:47)
[2020-10-27] MEDS: CHOLECALCIFEROL 1,000 UNIT CAPSULE PO SCH (08:48)
[2020-10-27] MEDS: ENOXAPARIN SODIUM 40 MG/0.4 ML SYRG SC SCH (11:26)
[2020-10-27] MEDS ORDERED: NORMAL SALINE 1,000 ML IV ONE (12:31)
--- NOTE | 2020-10-27 12:58 | PN ---
Subjective - Date and Time Seen Date: 10/27/20 Time: 12:50 Subjective Narrative: I feel the same as yesterday. Objective Objective Narrative: 39-year-old female admitted for multiple sclerosis flare, UTI, and bacteremia was evaluated bedside this morning was found to be afebrile and in no acute distress. Patient's morning labs this morning revealed a slight improvement in her WBCs however they continue to be elevated above the desired range, this is despite change her IV antibiotics yesterday. There has been no recurrence of fever or chills but clinically the patient appears hypoactive compared to previous days. A complete revision of her med list and treatments while in the hospital was conducted this morning and it is suspected that her reverse course that started during the weekend might be due to restarting her interferon. Literature on interferon reports an association with pyrexia and 45% of patients which might explain the fever from yesterday morning. The medication was held after rounds this morning and we will repeat labs tomorrow morning for reevaluation of WBCs renal function and electrolytes. The patient's family expressed a desire to have her transferred to higher level of care [facility] where the patient is very well-known and has been treated multiple times by the urologist for suprapubic catheter, however the internal medicine team as well as the urologist on-call was contacted and they both declined to accept the patient to their facility. They recommend keeping the patient here and continuing the IV antibiotics that she is currently on and ordering a CT scan to rule out any abscess or stones. We will order the imaging to rule out any intra-abdominal or intrapelvic pathologies that might explain her current condition. In the meantime the patient was restarted on IV fluids for MARTA and additional hydration. We will follow up in the morning. - Review of Systems Generalized/Overall Review: Reports: No Symptoms Reported EENTM: Reports: No Symptoms Reported Respiratory: Reports: No Symptoms Reported Cardiac: Reports: No Symptoms Reported Abdominal: Reports: No Symptoms Reported Genitourinary Symptoms: Reports: Other - Indwelling suprapubic catheter. Musculoskeletal Complaints: Reports: No Symptoms Reported Neurological: Reports: No Symptoms Reported, Pre-existing Deficit Skin: Reports: No Symptoms Reported Endocrine: Reports: No Symptoms Reported - Vitals Vitals: Last Vital Signs Temp 37.3 C 10/27/20 06:57 Pulse 99 10/27/20 06:57 Resp 16 10/27/20 06:57 BP 128/72 10/27/20 06:57 Pulse Ox 97 10/27/20 06:57 - Abnormal Lab Findings Abnormal Lab Findings: Abnormal Lab Results 10/27/20 10/27/20 Range/Units 06:23 06:23 WBC 13.3 H (4.0-10.5) K/mm3 MCHC 31.9 L (32-36) g/dl Immature Gran % (Auto) 4.40 H (0.001-0.429) % Immature Gran # (Auto) 0.59 H (0.000-0.0310) K/mm3 Lymphocytes % 19.7 L (20-51) % Neutrophils # 8.8 H (1.3-6.0) K/mm3 Creatinine 1.44 H (0.4-1.4) mg/dL Est GFR (Non-Af Amer) 43 L (60-130) mL/min Calcium Adj for Albumin 11.8 H (8.4-10.2) mg/dL Albumin 2.5 L (3.4-5.0) gm/dl - Exam Constitutional: Present: Alert, Oriented x3, Cooperative, Well developed, No distress, Morbidly obese ENT Exam: Present: normal ENT inspection, hearing grossly normal Neck: Present: non-tender, full range of motion, supple, normal inspection, trachea midline Breasts: Present: Exam deferred, Nontender Respiratory: Present: chest non-tender, lungs clear, normal breath sounds, no respiratory distress, no accessory muscle use Cardiovascular/Chest: Present: normal peripheral pulses, regular rate, rhythm, no chest tenderness, no edema, no gallop, no JVD, no murmur, no rub Abdomen: Present: Normal bowel sounds, soft, nontender, nondistended, no rebound tenderness, no hepatospenomegaly, no masses, obese /Rectal: Present: Other - Indwelling suprapubic catheter no signs or symptoms of infection. Extremity: Present: normal range of motion, non-tender Skin Exam: Present: normal color, warm/dry, no cyanosis Lymphatic: Present: no adenopathy Neurologic: Present: alert, normal mood/affect, oriented x 3 Appearance: Present: appropriate appearance, appropriate insight, neat, no memory impairment Eye contact: Present: cooperative, good eye contact, normal speech Thoughts: Present: normal thought pattern, no apparent hallucination Assessment/Plan Plan Narrative: We will continue the current management with IV antibiotics and IV fluid and follow-up with abdominal/pelvic CT results. - Problems/Diagnosis (1) Sepsis Problem: Resolved Qualifiers: Sepsis type: Pseudomonas Sepsis acute organ dysfunction status: with acute organ dysfunction Severe sepsis acute organ dysfunction type: unspecified Severe sepsis shock status: without septic shock Qualified Code(s): A41.52 - Sepsis due to Pseudomonas; R65.20 - Severe sepsis without septic shock (2) Multiple sclerosis, primary progressive Problem: Chronic (3) Depression Problem: Chronic (4) Multiple sclerosis Problem: Chronic (5) Neurogenic bladder Problem: Chronic (6) Multiple sclerosis exacerbation Problem: Acute (7) Leukocytosis Problem: Acute Qualifiers: (8) Anxiety Problem: Acute (9) Asthma Problem: Chronic (10) Morbid obesity Problem: Chronic (11) Suprapubic catheter Problem: Chronic (12) Recurrent UTI Problem: Acute (13) MARTA (acute kidney injury) Problem: Acute (14) Altered mental status Problem: Resolved (15) Bacteremia Problem: Acute (16) Pseudomonal bacteremia Problem: Acute (17) Hypercalcemia Problem: Chronic (18) Constipation Problem: Acute
[2020-10-27] MEDS ORDERED: DIATRIZOATE MEGLUMINE, SODIUM 30 ML BTL PO ONE (13:22)
[2020-10-27] MEDS: POLYETHYLENE GLYCOL 3350 17 GM PACKET PO PRN (16:17)
[2020-10-27] MEDS: ZINC SULFATE 220 MG CAPSULE PO SCH (16:18)
[2020-10-27] MEDS: MODAFINIL 100 MG PO SCH (16:19)
[2020-10-27] MEDS: LORazepam 1 MG TABLET PO PRN (20:14)
[2020-10-28] MEDS: PIPERACILLIN SODIUM/TAZOBACTAM 3.375 GM in DEXTROSE 5 % IN WATER 100 ML IV SCH ×4 (01:40→09:22)
[2020-10-28 06:25] LABS: Hematocrit 38.6 % (37.0-47.0); Hemoglobin 12.5 gm/dL (12.5-16.0); Mean Cell Volume 95.3 fl (78-100); Mean Corpuscular Hemoglobin 30.9 pg (27-31); Mean Corpuscular Hgb Conc 32.4 g/dl (32-36); Mean Platelet Volume 10.9 fl (8-12.5); Neutrophil # 10.2 K/mm3 (1.3-6.0); Neutrophil % 70.7 % (42-75.0); Platelet Count 302 K/mm3 (150-450); Red Blood Count 4.05 M/mm3 (4.2-5.4); Red Cell Distribution Width 13.1 % (11.5-14.0); White Blood Count 14.3 K/mm3 (4.0-10.5)
[2020-10-28 06:35] LABS: Albumin * 2.4 gm/dl (3.4-5.0); Anion Gap 12.7 mmol/L (6.8-13.8); BUN/Creatinine Ratio 8.5 (9.0-21.6); Bilirubin, Total 0.5 mg/dL (0.0-1.1); Ca. Corrected For Albumin 11.8 mg/dL (8.4-10.2); Calcium * 10.8 mg/dL (7.9-10.9); Carbon Dioxide 25.4 mmol/L (24-32.6); Potassium 4.1 mmol/L (3.4-4.6); Total Protein 7.5 gm/dL (6.2-8.2)
[2020-10-28] MEDS: MONTELUKAST SODIUM 10 MG TABLET PO SCH (09:16)
[2020-10-28] MEDS: CHOLECALCIFEROL 1,000 UNIT CAPSULE PO SCH (09:16)
[2020-10-28] MEDS: DOCUSATE SODIUM 100 MG CAPSULE PO SCH (09:16)
[2020-10-28] MEDS: VENLAFAXINE HCL 150 MG CAP.SR.24H PO SCH (09:16)
[2020-10-28] MEDS: BACLOFEN 10 MG TABLET PO SCH (09:16)
[2020-10-28] MEDS: VITAMIN B COMP W-C 1 TAB TABLET PO SCH (09:16)
[2020-10-28] MEDS: LORATADINE 10 MG TABLET PO SCH (09:16)
[2020-10-28] MEDS: PANTOPRAZOLE SODIUM 20 MG TABLET.DR PO SCH (09:17)
[2020-10-28] MEDS: FLUTICASONE PROPIONATE 120 SPRAY INHALER NS SCH (09:17)
[2020-10-28] MEDS: MULTIVITAMINS 1 CAP CAPSULE PO SCH (09:17)
[2020-10-28] MEDS: VENLAFAXINE HCL 37.5 MG CAP.SR.24H PO SCH (09:17)
--- NOTE | 2020-10-28 09:31 | DS ---
Transfer Discharge Summary - Diagnosis(s)/Problems (1) Sepsis Problem: Acute (2) Multiple sclerosis, primary progressive Problem: Chronic (3) Depression Problem: Chronic (4) Multiple sclerosis Problem: Chronic (5) Neurogenic bladder Problem: Chronic (6) Multiple sclerosis exacerbation Problem: Acute (7) Leukocytosis Problem: Acute (8) Anxiety Problem: Acute (9) Asthma Problem: Chronic (10) Morbid obesity Problem: Chronic (11) Suprapubic catheter Problem: Chronic (12) Recurrent UTI Problem: Acute (13) MARTA (acute kidney injury) Problem: Acute (14) Altered mental status Problem: Resolved (15) Bacteremia Problem: Acute (16) Pseudomonal bacteremia Problem: Acute (17) Hypercalcemia Problem: Chronic (18) Constipation Problem: Acute - Course Description of Stay: 39-year-old female admitted for sepsis due to UTI, multiple sclerosis flareup, and MARTA has been at our facility since October when she was readmitted to [facility] for recurrence of neurological symptoms and an acute infection. Patient has a long history of multiple sclerosis and is very advanced and her disease, she is currently under the care of a neurologist over the [facility] was recently optimize her medications. The patient was previously hospitalized a week and a half before this hospitalization for multiple sclerosis flareup and was treated with steroids which resolved her symptoms. After she improved she was discharged home with additional days of p.o. steroids which she completed, however several days after completing the treatment her significant other who lives with her noticed that the patient could not move her left side and had a fever. The patient eventually deteriorated neurologically and became unresponsive to verbal or tactile stimuli. She was brought to the ER where she was found to be septic so she was immediately started on IV fluids and IV antibiotics and blood and urine cultures were taken. She was also suspected of having a CVA so multiple brain imaging was ordered and both CT scan and brain MRI were negative for any acute findings. After ruling out the stroke the patient was once again treated with IV steroids and within less than 30 minutes she woke up and resume her ability to speak and move her left side, all acute neurological findings resolved. After follow-up with susceptibility report on blood and urine cultures, it was discovered that the patient was infected with Klebsiella and Pseudomonas in her urine and Pseudomonas in blood. Antibiotic therapy was optimized based on susceptibility and subsequently her leukocytosis fever chills resolved. Last Sunday patient had a normal WBCs balance electrolytes and resolution of MARTA, however during the weekend she spiked a fever once again and her WBCs were back up. Clinically the patient became less active and mildly flushed and reported not feeling well once again. Urology team at [facility] was contacted and they recommended ordering an abdominal/pelvic CT to look for possible source of infection, they also felt the suprapubic catheter although the patient may be colonized was not the cause of the current inf ection. CT results revealed a left to obstructing stones 1 measuring 5 mm and the other 3 mm and hydrouteronephrosis. The radiologist impression was that of acute pyelonephritis of the left kidney. After confirming this as a source of infection decision to transfer the patient to a facility with a urology service was made, she has been accepted at [facility] where she will be cared for by her usual neurologist with whom I discussed the case this morning. We will transfer the patient by ambulance to [facility] where she will undergo a procedure to have the stones removed. Procedures Performed: none - Results and Findings Results and Findings: Laboratory Results - last 24 hr 10/28/20 10/28/20 06:16 06:16 WBC 14.3 H RBC 4.05 L Hgb 12.5 Hct 38.6 MCV 95.3 MCH 30.9 MCHC 32.4 RDW 13.1 Plt Count 302 MPV 10.9 Immature Gran % (Auto) 2.60 H Immature Gran # (Auto) 0.37 H Neutrophils % 70.7 Lymphocytes % 17.5 L Monocytes % 8.0 Eosinophils % 0.6 Basophils % 0.6 Nucleated RBC % 0.0 Neutrophils # 10.2 H Lymphocytes # 2.50 Monocytes # 1.1 H Eosinophils # 0.1 Absolute Basophils 0.1 Sodium 139 Plasma Sodium 139 Potassium 4.1 Chloride 105 Carbon Dioxide 25.4 Anion Gap 12.7 BUN 12 Creatinine 1.42 H Est GFR (Non-Af Amer) 43 L BUN/Creatinine Ratio 8.5 L Random Glucose 99 Calcium 10.8 Calcium Adj for Albumin 11.8 H Total Bilirubin 0.5 AST 24 ALT 50 Alkaline Phosphatase 102 Total Protein 7.5 Albumin 2.4 L - Medications Medications: Active Medications Acetaminophen (Acetaminophen 500 Mg Tablet) 500 mg PO Q4H PRN PRN Reason: Mild pain (pain scale 1-3) Stop: 11/21/20 10:24 Last Admin: 10/26/20 12:56 Dose: 500 mg Documented by: Baclofen (Baclofen 10 Mg Tablet) 20 mg PO BID [facility] Stop: 11/17/20 10:31 Last Admin: 10/27/20 20:08 Dose: 20 mg Documented by: Cholecalciferol (Cholecalciferol 1,000 Unit Capsule) 4,000 unit PO DAILY BULL Stop: 11/17/20 10:31 Last Admin: 10/27/20 08:48 Dose: 4,000 unit Documented by: Docusate Sodium (Docusate Sodium 100 Mg Capsule) 200 mg PO BID BULL Stop: 11/17/20 10:31 Last Admin: 10/27/20 20:08 Dose: 200 mg Documented by: Enoxaparin Sodium (Enoxaparin Sodium 40 Mg/0.4 Ml Syrg) 40 mg SC Q24H BULL Stop: 11/17/20 10:31 Last Admin: 10/27/20 11:26 Dose: 40 mg Documented by: Fluticasone Propionate (Fluticasone Propionate 120 [place] Inhaler) 2 spray NS DAILY [facility] Stop: 11/17/20 10:31 Last Admin: 10/27/20 08:47 Dose: 2 spray Documented by: Guaifenesin (Guaifenesin 600 Mg Tablet.Sa) 1,200 mg PO BID [facility] Stop: 11/17/20 10:31 Last Admin: 10/27/20 20:08 Dose: 1,200 mg Documented by: Sodium Chloride (Sodium Chloride 0.9%) 1,000 mls @ 999 mls/hr IV .Q1H1M PRN PRN Reason: HYDRATION Last Infusion: 10/18/20 03:19 Dose: Infused Documented by: Piperacillin Sod/Tazobactam (Sod 3.375 gm/ Dextrose/Water) 100 mls @ 25 mls/hr IV Q8H [facility] Stop: 11/25/20 09:01 Last Infusion: 10/28/20 06:03 Dose: Infused Documented by: Loratadine (Loratadine 10 Mg Tablet) 10 mg PO DAILY [facility] Stop: 11/17/20 10:31 Last Admin: 10/27/20 08:47 Dose: 10 mg Documented by: Lorazepam (Lorazepam 1 Mg Tablet) 1 mg PO BID PRN PRN Reason: Anxiety Stop: 11/17/20 10:31 Last Admin: 10/27/20 20:14 Dose: 1 mg Documented by: Montelukast Sodium (Montelukast Sodium 10 Mg Tablet) 10 mg PO DAILY BULL Stop: 11/17/20 10:46 Last Admin: 10/27/20 08:47 Dose: 10 mg Documented by: Multivitamins/Folic Acid (Multivitamins 1 Cap Capsule) 1 cap PO DAILY BULL Stop: 11/17/20 10:46 Last Admin: 10/27/20 08:47 Dose: 1 cap Documented by: (Linaclotide [ Linzess] 145 Mcg Capsule) 145 mcg PO DAILY BULL Stop: 11/17/20 10:46 Last Admin: 10/27/20 08:47 Dose: Not Given Documented by: (Modafinil 100 Mg (Tablet)) 1 tab PO QDIPM BULL Stop: 11/17/20 17:01 Last Admin: 10/27/20 16:19 Dose: Not Given Documented by: Pantoprazole Sodium (Pantoprazole Sodium 20 Mg Tablet.) 20 mg PO BID@0700,2100 BULL Stop: 11/17/20 21:01 Last Admin: 10/27/20 20:08 Dose: 20 mg Documented by: Polyethylene Glycol (Polyethylene Glycol 3350 17 Gm Packet) 17 gm PO DAILY PRN PRN Reason: Constipation Stop: 11/17/20 10:31 Last Admin: 10/27/20 16:17 Dose: 17 gm Documented by: Senna/Docusate Sodium (Sennosides/Docusate Sodium 1 Tab Tablet) 1 tab PO DAILY PRN PRN Reason: Constipation Stop: 11/17/20 10:31 Last Admin: 10/25/20 09:13 Dose: 1 tab Documented by: Venlafaxine HCl (Venlafaxine Hcl 150 Mg Cap.Sr.24h) 150 mg PO DAILY BULL Stop: 11/17/20 10:46 Last Admin: 10/27/20 08:47 Dose: 150 mg Documented by: Venlafaxine HCl (Venlafaxine Hcl 37.5 Mg Cap.Sr.24h) 75 mg PO DAILY BULL Stop: 11/17/20 10:46 Last Admin: 10/27/20 08:46 Dose: 75 mg Documented by: Vitamin B Complex/Vitamin C (Vitamin B Comp W-C 1 Tab Tablet) 1 tab PO DAILY BULL Stop: 11/17/20 10:46 Last Admin: 10/27/20 08:46 Dose: 1 tab Documented by: Zinc Sulfate (Zinc Sulfate 220 Mg Capsule) 220 mg PO QDIPM BULL Stop: 11/17/20 17:01 Last Admin: 10/27/20 16:18 Dose: 220 mg Documented by: Discontinued Medications Diatrizoate Meglum/Diatrizoate Sod (Diatrizoate Meglumine, Sodium 30 Ml Btl) 60 ml PO ONCE ONE Stop: 10/27/20 13:23 Last Admin: 10/27/20 13:39 Dose: 60 ml Documented by: Ceftriaxone Sodium (Rocephin 1000 Mg Er Piggyback) 1,000 mg in 100 mls @ 200 mls/hr IV ONCE ONE Stop: 10/17/20 22:34 Last Infusion: 10/17/20 23:24 Dose: Infused Documented by: Acetaminophen (Ofirmev) 1,000 mg in 100 mls @ 400 mls/hr IV ONCE ONE Stop: 10/17/20 23:30 Last Infusion: 10/17/20 23:35 Dose: Infused Documented by: Acetaminophen (Ofirmev) 1,000 mg in 100 mls @ 400 mls/hr IV Q6H PRN PRN Reason: Pain Stop: 11/17/20 10:22 Last Infusion: 10/18/20 11:42 Dose: Infused Documented by: Sodium Chloride (Sodium Chloride 0.9%) 1,000 mls @ 125 mls/hr IV .Q8H ONE Stop: 10/18/20 18:26 Last Infusion: 10/18/20 18:42 Dose: Infused Documented by: Methylprednisolone Sodium Succinate 500 mg/ Sodium Chloride 104 mls @ 100 mls/hr IV BID [facility] Stop: 10/20/20 22:03 Last Infusion: 10/20/20 21:39 Dose: Infused Documented by: Ceftriaxone Sodium 2,000 mg/ (Dextrose/Water) 100 mls @ 200 mls/hr IV Q24H [facility]; Protocol Stop: 11/18/20 13:23 Last Infusion: 10/19/20 14:13 Dose: Infused Documented by: Ceftriaxone Sodium 1,000 mg/ (Dextrose/Water) 100 mls @ 200 mls/hr IV ONCE ONE; Protocol Stop: 10/18/20 14:14 Last Infusion: 10/18/20 14:40 Dose: Infused Documented by: Vancomycin/PEG/NADA/Lysine/Water (Vancomycin) 1 gm in 200 mls @ 75 mls/hr IV Q12H [facility] Stop: 11/18/20 11:01 Last Infusion: 10/20/20 01:10 Dose: Infused Documented by: Ceftazidime 2 gm/ Dextrose/ (Water) 100 mls @ 200 mls/hr IV Q8H [facility]; Protocol Stop: 11/19/20 09:31 Last Infusion: 10/26/20 01:19 Dose: Infused Documented by: Sodium Chloride (Sodium Chloride 0.9%) 1,000 mls @ 125 mls/hr IV .Q8H ONE Stop: 10/21/20 20:03 Last Infusion: 10/21/20 22:55 Dose: Infused Documented by: Sodium Chloride (Sodium Chloride 0.9%) 1,000 mls @ 125 mls/hr IV .Q8H ONE Stop: 10/25/20 18:30 Last Infusion: 10/25/20 20:36 Dose: Infused Documented by: Sodium Chloride (Sodium Chloride 0.9%) 1,000 mls @ 150 mls/hr IV .Q6H40M ONE Stop: 10/27/20 19:10 Last Infusion: 10/27/20 19:11 Dose: Infused Documented by: - Disposition Disposition: Short Term Hospital Inpatient Condition: Stable Discharge Date: 10/28/20 Discharge Time: :31
[2020-10-28] MEDS: ENOXAPARIN SODIUM 40 MG/0.4 ML SYRG SC SCH (09:35)
[2020-10-28 09:46] VITALS: BP 136/70
== END 2020-10-28 10:12 | disposition short-term general hospital (02) | DRG 872 ==
LOC: ER 20:43 → MS 10-18 01:00
PROVIDERS: ADMIT Family Medicine; ATTEND Family Medicine